=== PATIENT | male | born 1965 | race Caucasian/White ===

== ENCOUNTER 2018-09-05 14:11 | Emergency (ER) | payer BC ==
[~2018-09-05] VITALS: Ht 172.7 cm; Wt 76.2 kg
[~2018-09-05 14:11] MED LIST: AMLO10TA6 PO; ASPI-482 PO; ATOR10TA60 PO; CEFP200T PO; FENO200C PO; FLUC200T PO; GLIP10TA13 PO; IBUP-1060 PO; LISI1TAB5 PO; METF100010 PO; PANT40TA5 PO; TRAM-48 PO
[2018-09-05 14:12] VITALS: BP 161/87
--- NOTE | 2018-09-05 14:43 | PHYS DOC ---
Past Medical History Past Medical History: Diabetes-Type II, High Cholesterol, Hypertension, Other Additional Past Medical Histor: HEARING IMPAIRED Past Surgical History: Cholecystectomy, Tonsillectomy, Other Additional Past Surgical Histo: cochlear implant L ear Alcohol Use: None Drug Use: None Adult General Chief Complaint Chief Complaint: SHOUDLER HPI HPI Patient is a 53 year old male with history of diabetes type 2, hypertension, high cholesterol, who presents today complaining of 8 out of 10 right shoulder pain as well as posterior neck pain that began 4 days ago after he fell. Patient states he was working on a dock approximately 3 feet off the ground when he accidentally turned and fell. Patient denies any loss of consciousness. Denies being on any anticoagulants. Patient is deaf and unable to communicate verbally. Most of the information was provided by mother who is interpreting for sign language. Review of Systems Review of Systems Constitutional: Denies fever or chills [] Eyes: Denies change in visual acuity, redness, or eye pain [] HENT: Denies nasal congestion or sore throat [] Respiratory: Denies cough or shortness of breath [] Cardiovascular: No additional information not addressed in HPI [] GI: Denies abdominal pain, nausea, vomiting, bloody stools or diarrhea [] : Denies dysuria or hematuria [] Musculoskeletal: Reports right shoulder pain and posterior neck pain Integument: Denies rash or skin lesions [] Neurologic: Denies headache, focal weakness or sensory changes [] All other systems were reviewed and found to be within normal limits, except as documented in this note. Current Medications Current Medications Current Medications Medications (Trade) Dose Ordered Sig/[facility] Start Time Stop Time Status Last Admin Dose Admin Acetaminophen (Tylenol) 1,000 mg 1X ONCE 09/05/18 15:00 09/05/18 15:01 DC 09/05/18 14:52 1,000 MG Ibuprofen (Motrin) 600 mg 1X ONCE 09/05/18 15:00 09/05/18 15:01 DC 09/05/18 14:51 600 MG Allergies Allergies Allergies Coded Allergies Type Severity Reaction Last Updated Verified hydrocodone Adverse Reaction Intermediate confusion 12/10/16 Yes Physical Exam Physical Exam Constitutional: Well developed, well nourished, no acute distress, non-toxic appearance. [] HENT: Normocephalic, atraumatic, bilateral external ears normal, oropharynx moist, no oral exudates, nose normal. [] Eyes: PERRLA, EOMI, conjunctiva normal, no discharge. [] Neck: Normal range of motion, diffuse paraspinal muscle tenderness to posterior cervical spine including slight midline mid cervical spine tenderness tenderness , supple, no stridor. [] Cardiovascular:Heart rate regular rhythm, no murmur [] Lungs & Thorax: Bilateral breath sounds clear to auscultation [] Abdomen: Bowel sounds normal, soft, no tenderness, no masses, no pulsatile masses. [] Skin: Warm, dry, no erythema, no rash. [] Back: No tenderness, no CVA tenderness. [] Extremities: Right shoulder with no obvious deformity. Tenderness on palpation of the right clavicle. Full range of motion to the right shoulder, adequate abduction and adduction of the right shoulder. Adequate radial, medial, ulnar sensation to the right upper extremity. +2 right radial pulse. Cap refill less than 2 seconds the right fingers. Neurologic: Alert and oriented X 3, normal motor function, normal sensory function, no focal deficits noted. [] Psychologic: Affect normal, judgement normal, mood normal. [] Current Patient Data Vital Signs Vital Signs Date Time Temp Pulse Resp B/P (MAP) Pulse Ox O2 Delivery O2 Flow Rate FiO2 09/05/18 14:12 98.5 96 18 161/87 (111) 96 Room Air 98.5 EKG EKG [] Radiology/Procedures Radiology/Procedures []PROCEDURE: SHOULDER 2+V RIGHT EXAM: 3 views right shoulder DATE: 09/05/2018 2:26 PM INDICATION: PAIN RIGHT SHOULDER AFTER FALL 4 DAYS AGO COMPARISON: No Prior FINDINGS: No evidence of acute fracture or dislocation. Mild AC joint degenerative change. Inferior glenohumeral joint osteophytes are seen. Mild lateral downsloping of the distal acromion. Humeral head is not high riding. IMPRESSION: 1. AC joint and glenohumeral joint degenerative change. 2. No evidence of acute fracture or dislocation. Electronically signed by: Toan Nicholas MD (09/05/2018 2:39 PM) [facility] DICTATED and SIGNED BY: TOAN NICHOLAS MD DATE: 09/05/18 1438 PROCEDURE: CT CERVICAL SPINE WO CONTRAST EXAM: Cervical spine CT without contrast. HISTORY: Fall. TECHNIQUE: Computed tomographic images of the cervical spine were obtained without contrast. Multiplanar reformatting was performed. *One or more of the following individualized dose reduction techniques were utilized for this examination: 1. Automated exposure control. 2. Adjustment of the mA and/or kV according to patient size. 3. Use of iterative reconstruction technique. COMPARISON: None. FINDINGS: There is no significant listhesis. There is no acute or subacute fracture. There is degenerative endplate remodeling with bulky osteophytosis anteriorly at the majority of the cervical levels. There is ossification of the posterior longitudinal ligament at multiple levels. No suspicious osseous lesion is seen. The lung apices are unremarkable. At C2-C3, there is a posterior central disc osteophyte complex superimposed on a disc bulge. There is mild central canal stenosis. At C3-C4, there is a posterior central disc protrusion superimposed on a disc bulge and endplate remodeling. There is mild uncovertebral arthropathy. There is mild right foraminal and central canal stenosis. At C4-C5, there is a disc bulge and endplate remodeling. There is left greater than right uncovertebral therapy. There is mild left foraminal and central canal stenosis. At C5-C6, there is a disc bulge and left paracentral disc osteophyte complex superimposed on endplate remodeling. There is no stenosis. At C6-C7, there is a disc bulge and endplate remodeling. There is no stenosis. IMPRESSION: 1. Multilevel degenerative change about the cervical spine, described in detail above. 2. No acute osseous finding. Electronically signed by: Stephanie Mendoza MD (09/05/2018 3:18 PM) [facility] DICTATED and SIGNED BY: STEPHANIE MENDOZA MD DATE: 09/05/18 1516 Course & Med Decision Making Course & Med Decision Making Pertinent Labs and Imaging studies reviewed. (See chart for details) This is a 53-year-old male patient presented to the ED today with right shoulder pain as well as posterior neck pain status post falling 4 [address]erv[address] spine [address], right shoulder x-rays interpreted by radiologist were negative for any acute findings. Patient was discharged with diclofenac and cyclobenzaprine. Follow-up with PCP in 1-2 weeks. Ice elevation encouraged. Dragon Disclaimer Dragon Disclaimer This electronic medical record was generated, in whole or in part, using a voice recognition dictation system. Departure Departure Impression: Primary Impression: Fall from height of less than 3 feet Additional Impressions: Right shoulder pain Acute cervical sprain DJD (degenerative joint disease), cervical Degenerative joint disease, shoulder, right Disposition: 01 HOME, SELF-CARE Condition: STABLE Referrals: GARTH RIZVI MD (PCP) Follow-up next week Patient Instructions: Cervical Sprain, Fall Prevention and Home Safety, Shoulder Pain, [id number] Additional Instructions: You were evaluated in the emergency room for neck pain and right shoulder pain after falling. Your neck CT as well as right shoulder x-rays were negative for any acute findings. You were noted to have arthritis in your neck and right shoulder. Ice elevate the affected areas. Take the prescribed medications as needed for pain. Follow-up with your own doctor in 1-2 weeks. Scripts Cyclobenzaprine Hcl (CYCLOBENZAPRINE HCL) 10 Mg Tablet 1 TAB PO TID, #30 TAB Prov: DOMINGA MITCHELL APRN 09/05/18 Diclofenac Potassium (DICLOFENAC POTASSIUM) 50 Mg Tablet 1 TAB PO BID, #20 TAB 0 Refills Prov: DOMINGA MITCHELL APRN 09/05/18 Problem Qualifiers Additional Impressions: Right shoulder pain Chronicity: acute Qualified Codes: M25.511 - Pain in right shoulder Acute cervical sprain Encounter type: initial encounter Qualified Codes: S13.9XXA - Sprain of joints and ligaments of unspecified parts of neck, initial encounter DJD (degenerative joint disease), cervical Spinal osteoarthritis complication: unspecified spinal osteoarthritis Qualified Codes: M47.812 - Spondylosis without myelopathy or radiculopathy, cervical region Degenerative joint disease, shoulder, right Osteoarthritis type: other secondary Qualified Codes: 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
[2018-09-05] MEDS ORDERED: IBUPROFEN 600 MG TABLET. PO ONE (15:00)
[2018-09-05] MEDS ORDERED: ACETAMINOPHEN 500 MG TABLET PO ONE (15:00)
--- NOTE | 2018-09-05 15:23 | RAD ---
EXAM: Cervical spine CT without contrast. HISTORY: Fall. TECHNIQUE: Computed tomographic images of the cervical spine were obtained without contrast. Multiplanar reformatting was performed. *One or more of the following individualized dose reduction techniques were utilized for this examination: 1. Automated exposure control. 2. Adjustment of the mA and/or kV according to patient size. 3. Use of iterative reconstruction technique. COMPARISON: None. FINDINGS: There is no significant listhesis. There is no acute or subacute fracture. There is degenerative endplate remodeling with bulky osteophytosis anteriorly at the majority of the cervical levels. There is ossification of the posterior longitudinal ligament at multiple levels. No suspicious osseous lesion is seen. The lung apices are unremarkable. At C2-C3, there is a posterior central disc osteophyte complex superimposed on a disc bulge. There is mild central canal stenosis. At C3-C4, there is a posterior central disc protrusion superimposed on a disc bulge and endplate remodeling. There is mild uncovertebral arthropathy. There is mild right foraminal and central canal stenosis. At C4-C5, there is a disc bulge and endplate remodeling. There is left greater than right uncovertebral therapy. There is mild left foraminal and central canal stenosis. At C5-C6, there is a disc bulge and left paracentral disc osteophyte complex superimposed on endplate remodeling. There is no stenosis. At C6-C7, there is a disc bulge and endplate remodeling. There is no stenosis. IMPRESSION: 1. Multilevel degenerative change about the cervical spine, described in detail above. 2. No acute osseous finding. Electronically signed by: Stephanie Dutton MD (09/05/2018 3:18 PM) [place] [id number]
[2018-09-05] MEDS ORDERED: DICL50TA2 PO (15:52)
[2018-09-05] MEDS ORDERED: CYCL10TA2 PO (15:52)
== END 2018-09-05 16:01 | disposition home or self-care (01) ==
LOC: ER 14:11
DX: S13.8XXA Sprain of joints and ligaments of other parts of neck, initial encounter (principal); M19.011 Primary osteoarthritis, right shoulder; M47.812 Spondylosis without myelopathy or radiculopathy, cervical region; E11.9 Type 2 diabetes mellitus without complications; E78.00 Pure hypercholesterolemia, unspecified; I10 Essential (primary) hypertension; Z90.49 Acquired absence of other specified parts of digestive tract; Z90.89 Acquired absence of other organs; Z88.5 Allergy status to narcotic agent; W17.89XA Other fall from one level to another, initial encounter; Z91.81 History of falling; Y93.89 Activity, other specified; Y92.89 Other specified places as the place of occurrence of the external cause; Y99.0 Civilian activity done for income or pay
CPT/HCPCS: 72125; 73030; 99284-25

== ENCOUNTER 2019-07-24 09:31 | Emergency (ER) | payer BC ==
[~2019-07-24] VITALS: Ht 172.7 cm; Wt 74.4 kg
[~2019-07-24 09:31] MED LIST changes: -AMLO10TA6 PO; +AMLO10TA8 PO; +CYCL10TA2 PO; +DICL50TA2 PO; +LISI1TAB19 PO; -LISI1TAB5 PO; -PANT40TA5 PO; +PANT40TA77 PO
[2019-07-24] MEDS ORDERED: IV NORMAL SALINE 1000ML BAG 1,000 ML IV SCH (09:53)
[2019-07-24] MEDS ORDERED: ONDANSETRON PF 4 MG/2 ML VIAL. IV ONE (10:00)
[2019-07-24] MEDS ORDERED: fentaNYL PF VIAL 100 MCG/2 ML VIAL IV ONE (10:00)
--- NOTE | 2019-07-24 10:02 | PHYS DOC ---
Past Medical History Past Medical History: Diabetes-Type II, High Cholesterol, Hypertension, Other Additional Past Medical Histor: HEARING IMPAIRED Past Surgical History: Cholecystectomy, Tonsillectomy, Other Additional Past Surgical Histo: cochlear implant L ear Alcohol Use: None Drug Use: None Adult General Chief Complaint Chief Complaint: ABDOMINAL PAIN HPI HPI Patient is a 54 year old male patient with history of hypertension, dyslipidemia, diabetes mellitus and impaired hearing who presents with abdominal pain. Patient's mother helping with using sign language for taking history. Patient returned home from work yesterday with temperature of 100.8 and upper abdominal cramping pain and rated his pain over 10. Patient had more than 10 episodes of nonbloody diarrhea and 3 episodes of vomiting with urinary frequency and decrease of appetite. Patient complaining of left ankle and knee and leg pain since yesterday and rated his pain 10 over 10. Review of Systems Review of Systems Constitutional: Reports fever Eyes: Denies change in visual acuity, redness, or eye pain [] HENT: Denies nasal congestion or sore throat [] Respiratory: Denies cough or shortness of breath [] Cardiovascular: No additional information not addressed in HPI [] GI: Reports abdominal pain, nausea, vomiting, diarrhea [] : Denies dysuria or hematuria [] Musculoskeletal: Denies back pain, reports joint pain [] Integument: Denies rash or skin lesions [] Neurologic: Denies headache, focal weakness or sensory changes [] Endocrine: Denies polyuria or polydipsia [] All other systems were reviewed and found to be within normal limits, except as documented in this note. Current Medications Current Medications Current Medications Medications (Trade) Dose Ordered Sig/[facility] Start Time Stop Time Status Last Admin Dose Admin Diphenoxylate HCl/ Atropine (Lomotil) 2 tab 1X ONCE 07/24/19 12:15 07/24/19 12:16 Fentanyl Citrate (Fentanyl 2ml Vial) 50 mcg 1X ONCE 07/24/19 10:00 07/24/19 10:01 DC 07/24/19 10:08 50 MCG Ketorolac Tromethamine (Toradol 30mg Vial) 30 mg 1X ONCE 07/24/19 11:00 07/24/19 11:01 DC 07/24/19 10:55 30 MG Ondansetron HCl (Zofran) 4 mg 1X ONCE 07/24/19 10:00 07/24/19 10:01 DC 07/24/19 10:07 4 MG Potassium Chloride (Klor-Con) 40 meq 1X ONCE 07/24/19 12:15 07/24/19 12:16 Sodium Chloride 1,000 ml @ 1,000 mls/hr Q1H 07/24/19 09:53 07/24/19 10:52 DC 07/24/19 10:06 1,000 MLS/HR Allergies Allergies Allergies Coded Allergies Type Severity Reaction Last Updated Verified hydrocodone Adverse Reaction Intermediate confusion 12/10/16 Yes Physical Exam Physical Exam Constitutional: Well developed, well nourished, mild distress, non-toxic appearance , impaired hearing and speech. HENT: Normocephalic, atraumatic, dry oral mucosa. Eyes: PERRLA, EOMI, conjunctiva normal, no discharge. [] Neck: Normal range of motion, no tenderness, supple, no stridor. [] Cardiovascular:Heart rate regular rhythm, no murmur [] Lungs & Thorax: Bilateral breath sounds clear to auscultation [] Abdomen: Bowel sounds normal, soft, no tenderness, no masses, no pulsatile masses. [] Skin: Warm, dry, no erythema, no rash. [] Back: No tenderness, no CVA tenderness. [] Extremities: No tenderness, no cyanosis, no clubbing, ROM intact, no edema. Left lower extremity without edema or erythema or tenderness or sign of injury.[] Neurologic: Alert and oriented X 3, no focal deficits noted. [] Psychologic: Affect anxious. Current Patient Data Vital Signs Vital Signs Date Time Temp Pulse Resp B/P (MAP) Pulse Ox O2 Delivery O2 Flow Rate FiO2 07/24/19 09:40 98.9 98 20 132/92 (105) 94 Room Air 98.9 Lab Values Laboratory Tests Test 07/24/19 09:55 07/24/19 10:30 White Blood Count 8.1 x10^3/uL (4.0-11.0) Red Blood Count 5.73 x10^6/uL (4.30-5.70) H Hemoglobin 16.4 g/dL (13.0-17.5) Hematocrit 47.7 % (39.0-53.0) Mean Corpuscular Volume 83 fL (79-100) Mean Corpuscular Hemoglobin 29 pg (25-35) Mean Corpuscular Hemoglobin Concent 34 g/dL (31-37) Red Cell Distribution Width 14.0 % (11.5-14.5) Platelet Count 209 x10^3/uL (140-400) Neutrophils (%) (Auto) 71 % (31-73) Lymphocytes (%) (Auto) 17 % (24-48) L Monocytes (%) (Auto) 9 % (0-9) Eosinophils (%) (Auto) 2 % (0-3) Basophils (%) (Auto) 1 % (0-3) Neutrophils # (Auto) 5.8 x10^3/uL (1.8-7.7) Lymphocytes # (Auto) 1.4 x10^3/uL (1.0-4.8) Monocytes # (Auto) 0.7 x10^3/uL (0.0-1.1) Eosinophils # (Auto) 0.2 x10^3/uL (0.0-0.7) Basophils # (Auto) 0.1 x10^3/uL (0.0-0.2) Sodium Level 135 mmol/L (136-145) L Potassium Level 3.2 mmol/L (3.5-5.1) L Chloride Level 97 mmol/L (98-107) L Carbon Dioxide Level 29 mmol/L (21-32) Anion Gap 9 (6-14) Blood Urea Nitrogen 12 mg/dL (8-26) Creatinine 0.8 mg/dL (0.7-1.3) Estimated GFR (Cockcroft-Gault) 100.4 BUN/Creatinine Ratio 15 (6-20) Glucose Level 266 mg/dL (70-99) H Lactic Acid Level 1.3 mmol/L (0.4-2.0) Calcium Level 9.0 mg/dL (8.5-10.1) Total Bilirubin 1.6 mg/dL (0.2-1.0) H Aspartate Amino Transferase (AST) 19 U/L (15-37) Alanine Aminotransferase (ALT) 34 U/L (16-63) Alkaline Phosphatase 121 U/L (46-116) H Total Protein 8.3 g/dL (6.4-8.2) H Albumin 3.6 g/dL (3.4-5.0) Albumin/Globulin Ratio 0.8 (1.0-1.7) L Lipase 95 U/L (73-393) Urine Collection Type Unknown Urine Color Madelyn Urine Clarity Clear Urine pH 6.0 Urine Specific [place] >=1.030 Urine Protein 100 mg/dL (NEG-TRACE) Urine Glucose (UA) 250 mg/dL (NEG) Urine Ketones (Stick) Trace mg/dL (NEG) Urine Blood Negative (NEG) Urine Nitrite Negative (NEG) Urine Bilirubin Negative (NEG) Urine Urobilinogen Dipstick 1.0 mg/dL (0.2 mg/dL) Urine Leukocyte Esterase Negative (NEG) Urine RBC 0 /HPF (0-2) Urine WBC 1-4 /HPF (0-4) Urine Squamous Epithelial Cells Few /LPF Urine Bacteria Few /HPF (0-FEW) Urine Hyaline Casts Few /HPF Urine Granular Casts Occasional /HPF Urine Mucus Marked /LPF Laboratory Tests 07/24/19 09:55 Laboratory Tests 07/24/19 09:55 EKG EKG [] Radiology/Procedures Radiology/Procedures [][facility] [address] [place] [address] IMAGING REPORT Signed PATIENT: JULIÁN HEATON ACCOUNT: [id number] : 1965 LOCATION: ER AGE: 54 SEX: M EXAM STATUS: REG ER ORD. PHYSICIAN: FLORENCIO CENTENO MD REASON: abdominal pain, nausea and vomiting PROCEDURE: CT ABDOMEN PELVIS WO CONTRAST Examination: CT of the abdomen pelvis without contrast HISTORY: History of abdominal pain, nausea, vomiting COMPARISON: 12/08/2016 TECHNIQUE: Axial CT images of the abdomen is performed without contrast. Coronal and sagittal reformats are performed Exposure: One or more of the following individualized dose reduction techniques were utilized for this examination: 1. Automated exposure control 2. Adjustment of the mA and/or kV according to patient size 3. Use of iterative reconstruction technique FINDINGS: Mild bibasilar lung atelectasis. Calcified mediastinal and hilar lymph nodes. Calcified granuloma identified in the left lung base. No evidence of free air identified in the abdomen. There is diffuse decreased attenuation noted throughout the liver likely hepatic steatosis. Cholecystectomy changes identified. The spleen, adrenals grossly appears unremarkable. The evaluation of the solid organs is limited due to lack of IV contrast. The evaluation of bowel is limited due to lack of oral contrast. The stomach is mildly distended. The visualized pancreas grossly appears unremarkable. The small bowel is nondilated. Appendix is normal. Feces and gas noted in the colon. Urinary bladder is mildly distended. No evidence of intrarenal collecting system calculi or hydronephrosis. Minimal stranding identified about the bilateral kidneys. Mild aortic atherosclerosis. Moderate degenerative changes thoracolumbar spine. IMPRESSION: 1. Mild fat stranding identified about the bilateral kidneys, nonspecific could be due to medical renal disease or urinary tract infection. Correlate with urine analysis. 2. Hepatic steatosis. Electronically signed by: Sim Carrasco MD (07/24/2019 10:46 AM) [facility] DICTATED and SIGNED BY: SIM CARRASCO MD DATE: 07/24/19 1044 [facility] [address] [place] [address] IMAGING REPORT Signed PATIENT: JULIÁN HEATON ACCOUNT: [id number] : 1965 LOCATION: ER AGE: 54 SEX: M EXAM STATUS: REG ER ORD. PHYSICIAN: FLORENCIO CENTENO MD REASON: leg pain PROCEDURE: VENOUS LOWER EXTREMITY LEFT Examination: Lower Extremity Venous Doppler Ultrasound History: Left leg pain Comparison: None Procedure: Sanchez scale, color flow 2D and spectal waveform analysis images are obtained with and without compression in the area of the common femoral vein, superficial femoral vein - femoral vein junction, main femoral vein (superficial femoral vein) and popliteal vein. Veins of the proximal calf are also imaged. Findings: There is normal duplex flow, color flow and compressibility of all visualized vein segments. No evidence of deep venous thrombus is present. Impression: No evidence of DVT in the left lower extremity venous system. Electronically signed by: Sim Carrasco MD (07/24/2019 11:37 AM) [facility] DICTATED and SIGNED BY: SIM CARRASCO MD DATE: 07/24/19 4954 Course & Med Decision Making Course & Med Decision Making Pertinent Labs and Imaging studies reviewed. (See chart for details) Evolution of patient in ER showed 54-year-old male patient with complaining of nausea and vomiting and diarrhea for the last few days with left leg pain. Patient had unremarkable physical exam and labs except for mild hypokalemia and increasing of urine specific gravity. CT abdomen and pelvis was unremarkable and left lower extremity ultrasound did not show acute finding. Patient felt better with IV fluid and Zofran and fentanyl and Toradol. Plan discharge patient home with diagnosis of acute gastroenteritis and muscle pain. Dragon Disclaimer Dragon Disclaimer This electronic medical record was generated, in whole or in part, using a voice recognition dictation system. Departure Departure Impression: Primary Impression: Acute gastroenteritis Additional Impressions: Hypokalemia Abdominal pain Uncontrolled diabetes mellitus Elevated liver function tests Hepatic steatosis Lower extremity pain, left Impaired hearing Disposition: HOME, SELF-CARE (at 1207) Condition: IMPROVED Referrals: GARTH RIZVI MD (PCP) Patient Instructions: Hyperglycemia, Hypokalemia, Muscle Strain, Viral Gastroenteritis Additional Instructions: Drink plenty of liquids Follow-up with your primary care physician in 3-5 days Return to ER if not getting better Do not eat solid food for the next 24 hours Scripts Ondansetron Hcl (ZOFRAN) 4 Mg Tablet 1 TAB PO PRN Q6-8HRS for nausea, #12 TAB Prov: FLORENCIO CENTENO MD 07/24/19 Acetaminophen With Codeine (TYLENOL WITH CODEINE #3 TABLET) 1 Each Tablet 1 TAB PO PRN Q6HRS PRN for PAIN, #10 TAB Prov: FLORENCIO CENTENO MD 07/24/19 Problem Qualifiers Additional Impressions: Abdominal pain Abdominal location: unspecified location Qualified Codes: R10.9 - Unspecified abdominal pain Uncontrolled diabetes mellitus Diabetes mellitus type: other specified (including YOANA) Glycemic state: with hyperglycemia Qualified Codes: E13.65 - Other specified diabetes mellitus with hyperglycemia Impaired hearing Hearing loss type: unspecified Laterality: unspecified laterality Qualified Codes: H91.90 - Unspecified hearing loss, unspecified ear FLORENCIO CENTENO MD Jul 24, 2019 10:02
[2019-07-24 10:15] LABS: BASO # 0.1 x10^3/uL (0.0-0.2); BASO % 1 % (0-3); EOS # 0.2 x10^3/uL (0.0-0.7); EOS % 2 % (0-3); HEMATOCRIT 47.7 % (39.0-53.0); HEMOGLOBIN 16.4 g/dL (13.0-17.5); LYMPH # 1.4 x10^3/uL (1.0-4.8); LYMPH % 17 % (24-48); MEAN CORPUSCULAR HEMOGLOBIN 29 pg (25-35); MEAN CORPUSCULAR HGB CONC 34 g/dL (31-37); MEAN CORPUSCULAR VOLUME 83 fL (79-100); MONO # 0.7 x10^3/uL (0.0-1.1); MONO % 9 % (0-9); NEUT # 5.8 x10^3/uL (1.8-7.7); NEUT % 71 % (31-73); PLATELET COUNT 209 x10^3/uL (140-400); RED BLOOD COUNT 5.73 x10^6/uL (4.30-5.70); WHITE BLOOD COUNT 8.1 x10^3/uL (4.0-11.0)
[2019-07-24 10:20] LABS: CREATININE 0.8 mg/dL (0.7-1.3); GFR 100.4; POTASSIUM 3.2 mmol/L (3.5-5.1)
[2019-07-24 10:26] LABS: ALBUMIN 3.6 g/dL (3.4-5.0); ALBUMIN/GLOBULIN RATIO 0.8 (1.0-1.7); TOTAL BILIRUBIN 1.6 mg/dL (0.2-1.0); TOTAL PROTEIN 8.3 g/dL (6.4-8.2)
[2019-07-24 10:47] LABS: BILIRUBIN,URINE NEGATIVE (NEG); CLARITY,URINE CLEAR; COLOR,URINE AMBER; NITRITE,URINE NEGATIVE (NEG); PROTEIN,URINE 100 mg/dL (NEG-TRACE)
--- NOTE | 2019-07-24 10:50 | RAD ---
Examination: CT of the abdomen pelvis without contrast HISTORY: History of abdominal pain, nausea, vomiting COMPARISON: 12/08/2016 TECHNIQUE: Axial CT images of the abdomen is performed without contrast. Coronal and sagittal reformats are performed Exposure: One or more of the following individualized dose reduction techniques were utilized for this examination: 1. Automated exposure control 2. Adjustment of the mA and/or kV according to patient size 3. Use of iterative reconstruction technique FINDINGS: Mild bibasilar lung atelectasis. Calcified mediastinal and hilar lymph nodes. Calcified granuloma identified in the left lung base. No evidence of free air identified in the abdomen. There is diffuse decreased attenuation noted throughout the liver likely hepatic steatosis. Cholecystectomy changes identified. The spleen, adrenals grossly appears unremarkable. The evaluation of the solid organs is limited due to lack of IV contrast. The evaluation of bowel is limited due to lack of oral contrast. The stomach is mildly distended. The visualized pancreas grossly appears unremarkable. The small bowel is nondilated. Appendix is normal. Feces and gas noted in the colon. Urinary bladder is mildly distended. No evidence of intrarenal collecting system calculi or hydronephrosis. Minimal stranding identified about the bilateral kidneys. Mild aortic atherosclerosis. Moderate degenerative changes thoracolumbar spine. IMPRESSION: 1. Mild fat stranding identified about the bilateral kidneys, nonspecific could be due to medical renal disease or urinary tract infection. Correlate with urine analysis. 2. Hepatic steatosis. Electronically signed by: Sim Carrasco MD (07/24/2019 10:46 AM) [facility]
[2019-07-24 11:00] LABS: BACTERIA,URINE FEW /HPF (0-FEW); GRANULAR CASTS,URINE OCCASIONAL /HPF; HYALINE CASTS, URINE FEW /HPF; RBC,URINE 0 /HPF (0-2); SQUAMOUS EPITHELIAL CELL,UR FEW /LPF
[2019-07-24] MEDS ORDERED: KETOROLAC 30 MG/ML VIAL. IVP ONE (11:00)
--- NOTE | 2019-07-24 11:40 | RAD ---
Examination: Lower Extremity Venous Doppler Ultrasound History: Left leg pain Comparison: None Procedure: Sanchez scale, color flow 2D and spectal waveform analysis images are obtained with and without compression in the area of the common femoral vein, superficial femoral vein - femoral vein junction, main femoral vein (superficial femoral vein) and popliteal vein. Veins of the proximal calf are also imaged. Findings: There is normal duplex flow, color flow and compressibility of all visualized vein segments. No evidence of deep venous thrombus is present. Impression: No evidence of DVT in the left lower extremity venous system. Electronically signed by: Sim Carrasco MD (07/24/2019 11:37 AM) [facility]
[2019-07-24 11:51] VITALS: BP 108/62
[2019-07-24] MEDS ORDERED: ACET-704 PO (12:12)
[2019-07-24] MEDS ORDERED: ONDA4TAB7 PO (12:12)
[2019-07-24] MEDS ORDERED: POTASSIUM CHLORIDE 20 MEQ TABLET.ER. PO ONE (12:15)
[2019-07-24] MEDS ORDERED: DIPHENOXYLATE/ATROPINE TABLET. PO ONE (12:15)
== END 2019-07-24 13:26 | disposition home or self-care (01) ==
LOC: ER 09:31
DX: K52.9 Noninfective gastroenteritis and colitis, unspecified (principal); E87.6 Hypokalemia; R11.2 Nausea with vomiting, unspecified; R10.9 Unspecified abdominal pain; E11.649 Type 2 diabetes mellitus with hypoglycemia without coma; R94.5 Abnormal results of liver function studies; K76.0 Fatty (change of) liver, not elsewhere classified; M79.605 Pain in left leg; H91.90 Unspecified hearing loss, unspecified ear; E78.00 Pure hypercholesterolemia, unspecified; I10 Essential (primary) hypertension; Z90.89 Acquired absence of other organs; Z90.49 Acquired absence of other specified parts of digestive tract; Z98.890 Other specified postprocedural states; Z88.5 Allergy status to narcotic agent; Z79.899 Other long term (current) drug therapy
CPT/HCPCS: 36415; 74176; 80053; 81001; 83605; 83690; 85025; 87040; 93971; 96361; 96374; 96375; 99285; J1885; J2405; J3010; J7030

== ENCOUNTER 2019-09-04 14:43 | Emergency (ER) | payer BC ==
[~2019-09-04] VITALS: Ht 170.2 cm; Wt 73.6 kg
[~2019-09-04 14:43] MED LIST changes: +ACET-704 PO; +ONDA4TAB7 PO
[2019-09-04 15:36] VITALS: BP 159/85
[2019-09-04] MEDS ORDERED: IV NORMAL SALINE 1000ML BAG 1,000 ML IV ONE (15:45)
[2019-09-04 16:25] LABS: BASO # 0.1 x10^3/uL (0.0-0.2); BASO % 1 % (0-3); EOS # 0.2 x10^3/uL (0.0-0.7); EOS % 3 % (0-3); HEMOGLOBIN 14.9 g/dL (13.0-17.5); LYMPH # 1.8 x10^3/uL (1.0-4.8); LYMPH % 19 % (24-48); MEAN CORPUSCULAR HEMOGLOBIN 29 pg (25-35); MEAN CORPUSCULAR HGB CONC 35 g/dL (31-37); MEAN CORPUSCULAR VOLUME 83 fL (79-100); MONO # 0.4 x10^3/uL (0.0-1.1); MONO % 5 % (0-9); NEUT # 6.7 x10^3/uL (1.8-7.7); NEUT % 72 % (31-73); PLATELET COUNT 236 x10^3/uL (140-400); RED BLOOD COUNT 5.21 x10^6/uL (4.30-5.70); RED CELL DISTRIBUTION WIDTH 13.4 % (11.5-14.5); WHITE BLOOD COUNT 9.3 x10^3/uL (4.0-11.0)
--- NOTE | 2019-09-04 16:29 | RAD ---
Chest AP portable at 1544: Reason for examination: Chest pain. Comparison is made to previous study dated 05/29/2015. The heart size is normal. Mediastinum is unremarkable. There are calcifications at the left hilum and in the left lung base. Lung galindo show no acute infiltrates or pleural effusions. No acute bony abnormalities are seen. Impression: No acute cardiopulmonary disease. Electronically signed by: Hallie Merlos MD (09/04/2019 4:27 PM) [id number]
[2019-09-04 16:42] LABS: PROTHROMBIN TIME PATIENT 12.5 SEC (11.7-14.0)
[2019-09-04 16:42] LABS: BILIRUBIN,URINE NEGATIVE (NEG); CLARITY,URINE CLEAR; COLOR,URINE YELLOW; NITRITE,URINE NEGATIVE (NEG); PROTEIN,URINE 30 mg/dL (NEG-TRACE)
[2019-09-04 16:47] LABS: BARBITURATES NEG (NEG); BENZODIAZEPINES NEG (NEG); CANNABINOIDS NEG (NEG); COCAINE NEG (NEG); METHADONE NEG (NEG); OPIATES NEG (NEG); PHENCYCLIDINE NEG (NEG)
[2019-09-04 16:50] LABS: AMPHETAMINE/METHAMPHETAMINE NEG (NEG)
[2019-09-04 16:51] LABS: CALCIUM 9.2 mg/dL (8.5-10.1); CREATININE 0.7 mg/dL (0.7-1.3); GFR 117.1; POTASSIUM 3.6 mmol/L (3.5-5.1)
[2019-09-04 16:52] LABS: BACTERIA,URINE 0 /HPF (0-FEW); RBC,URINE 0 /HPF (0-2); WBC,URINE 0 /HPF (0-4)
[2019-09-04 16:55] LABS: ALBUMIN 3.7 g/dL (3.4-5.0); ALBUMIN/GLOBULIN RATIO 0.9 (1.0-1.7); TOTAL BILIRUBIN 0.6 mg/dL (0.2-1.0); TOTAL PROTEIN 7.9 g/dL (6.4-8.2)
--- NOTE | 2019-09-04 17:49 | PHYS DOC ---
Past Medical History Past Medical History: Diabetes-Type II, High Cholesterol, Hypertension, Other Additional Past Medical Histor: HEARING IMPAIRED Past Surgical History: Appendectomy, Cholecystectomy, Tonsillectomy, Other Additional Past Surgical Histo: cochlear implant L ear Alcohol Use: None Drug Use: None Adult General Chief Complaint Chief Complaint: BLOOD SUGAR PROBLEM HPI HPI Patient is a 54 year old male with history of diabetes type 2, hypertension, high last, hearing impaired uses sign language who presents to the ED today with the mother, mother reports they were at [employer] when patient complained of dizziness, ringing in his right ear, he was given ice cream they went home, they called EMS, blood glucose was taken which was 357, EMS advised him to come to the ED to be evaluated. Review of Systems Review of Systems Constitutional: Denies fever or chills [] Eyes: Denies change in visual acuity, redness, or eye pain [] HENT: Denies nasal congestion or sore throat [] Respiratory: Denies cough or shortness of breath [] Cardiovascular: No additional information not addressed in HPI [] GI: Denies abdominal pain, nausea, vomiting, bloody stools or diarrhea [] : Denies dysuria or hematuria [] Musculoskeletal: Denies back pain or joint pain [] Integument: Denies rash or skin lesions [] Neurologic: Reports dizziness. Denies headache, focal weakness or sensory changes [] Endocrine: Reports hyperglycemia All other systems were reviewed and found to be within normal limits, except as documented in this note. Current Medications Current Medications Current Medications Medications (Trade) Dose Ordered Sig/Sharyn Start Time Stop Time Status Last Admin Dose Admin Sodium Chloride 1,000 ml @ 1,000 mls/hr 1X ONCE 09/04/19 15:45 09/04/19 16:44 DC 09/04/19 16:08 1,000 MLS/HR Allergies Allergies Allergies Coded Allergies Type Severity Reaction Last Updated Verified hydrocodone Adverse Reaction Intermediate confusion 12/10/16 Yes Physical Exam Physical Exam Constitutional: Well developed, well nourished, no acute distress, non-toxic appearance. [] HENT: Normocephalic, atraumatic, bilateral external ears normal, oropharynx moist, no oral exudates, nose normal.[place] Eyes: PERRLA, EOMI, conjunctiva normal, no discharge. [] Neck: Normal range of motion, no tenderness, supple, no stridor. [] Cardiovascular:Heart rate regular rhythm, no murmur [] Lungs & Thorax: Bilateral breath sounds clear to auscultation [] Abdomen: Bowel sounds normal, soft, no tenderness, no masses, no pulsatile masses. [] Skin: Warm, dry, no erythema, no rash. [] Back: No tenderness, no CVA tenderness. [] Extremities: No tenderness, no cyanosis, no clubbing, ROM intact, no edema. [] Neurologic: Alert and oriented X 3, normal motor function, normal sensory function, no focal deficits noted. Cranial nerves II through XII intact Psychologic: Affect normal, judgement normal, mood normal. [] Current Patient Data Vital Signs Vital Signs Date Time Temp Pulse Resp B/P (MAP) Pulse Ox O2 Delivery O2 Flow Rate FiO2 09/04/19 15:36 97.4 88 18 159/85 (109) 97 97.4 Lab Values Laboratory Tests Test 09/04/19 15:38 09/04/19 16:00 09/04/19 16:20 09/04/19 17:45 Glucose (Fingerstick) 303 mg/dL (70-99) H 233 mg/dL (70-99) H White Blood Count 9.3 x10^3/uL (4.0-11.0) Red Blood Count 5.21 x10^6/uL (4.30-5.70) Hemoglobin 14.9 g/dL (13.0-17.5) Hematocrit 43.0 % (39.0-53.0) Mean Corpuscular Volume 83 fL (79-100) Mean Corpuscular Hemoglobin 29 pg (25-35) Mean Corpuscular Hemoglobin Concent 35 g/dL (31-37) Red Cell Distribution Width 13.4 % (11.5-14.5) Platelet Count 236 x10^3/uL (140-400) Neutrophils (%) (Auto) 72 % (31-73) Lymphocytes (%) (Auto) 19 % (24-48) L Monocytes (%) (Auto) 5 % (0-9) Eosinophils (%) (Auto) 3 % (0-3) Basophils (%) (Auto) 1 % (0-3) Neutrophils # (Auto) 6.7 x10^3/uL (1.8-7.7) Lymphocytes # (Auto) 1.8 x10^3/uL (1.0-4.8) Monocytes # (Auto) 0.4 x10^3/uL (0.0-1.1) Eosinophils # (Auto) 0.2 x10^3/uL (0.0-0.7) Basophils # (Auto) 0.1 x10^3/uL (0.0-0.2) Prothrombin Time 12.5 SEC (11.7-14.0) Prothrombin Time INR 1.0 (0.8-1.1) Sodium Level 136 mmol/L (136-145) Potassium Level 3.6 mmol/L (3.5-5.1) Chloride Level 99 mmol/L (98-107) Carbon Dioxide Level 29 mmol/L (21-32) Anion Gap 8 (6-14) Blood Urea Nitrogen 13 mg/dL (8-26) Creatinine 0.7 mg/dL (0.7-1.3) Estimated GFR (Cockcroft-Gault) 117.1 BUN/Creatinine Ratio 19 (6-20) Glucose Level 305 mg/dL (70-99) H Calcium Level 9.2 mg/dL (8.5-10.1) Magnesium Level 2.0 mg/dL (1.8-2.4) Total Bilirubin 0.6 mg/dL (0.2-1.0) Aspartate Amino Transferase (AST) 24 U/L (15-37) Alanine Aminotransferase (ALT) 40 U/L (16-63) Alkaline Phosphatase 129 U/L (46-116) H Creatine Kinase 130 U/L (39-308) Creatine Kinase MB (Mass) 1.1 ng/mL (0.0-3.6) Creatine Kinase MB Relative Index 0.8 % (0-4) Troponin I Quantitative < 0.017 ng/mL (0.000-0.055) XX-[place]x-K-Type Natriuretic Peptide 75 pg/mL (0-124) Total Protein 7.9 g/dL (6.4-8.2) Albumin 3.7 g/dL (3.4-5.0) Albumin/Globulin Ratio 0.9 (1.0-1.7) L Thyroid Stimulating Hormone (TSH) 0.623 uIU/mL (0.358-3.74) Urine Collection Type Unknown Urine Color Yellow Urine Clarity Clear Urine pH 6.0 Urine Specific [place] >=1.030 Urine Protein 30 mg/dL (NEG-TRACE) Urine Glucose (UA) >=1000 mg/dL (NEG) Urine Ketones (Stick) Negative mg/dL (NEG) Urine Blood Negative (NEG) Urine Nitrite Negative (NEG) Urine Bilirubin Negative (NEG) Urine Urobilinogen Dipstick 1.0 mg/dL (0.2 mg/dL) Urine Leukocyte Esterase Negative (NEG) Urine RBC 0 /HPF (0-2) Urine WBC 0 /HPF (0-4) Urine Bacteria 0 /HPF (0-FEW) Urine Opiates Screen Neg (NEG) Urine Methadone Screen Neg (NEG) Urine Barbiturates Neg (NEG) Urine Phencyclidine Screen Neg (NEG) Urine Amphetamine/Methamphetamine Neg (NEG) Urine Benzodiazepines Screen Neg (NEG) Urine Cocaine Screen Neg (NEG) Urine Cannabinoids Screen Neg (NEG) Urine Ethyl Alcohol Neg (NEG) Laboratory Tests 09/04/19 16:00 Laboratory Tests 09/04/19 16:00 EKG EKG [address] Louis sinus rhythm heart rate 82 no STEMI Radiology/Procedures Radiology/Procedures []PROCEDURE: PORTABLE CHEST 1V Chest AP portable at 1544: Reason for examination: Chest pain. Comparison is made to previous study dated 05/29/2015. The heart size is normal. Mediastinum is unremarkable. There are calcifications at the left hilum and in the left lung base. Lung galindo show no acute infiltrates or pleural effusions. No acute bony abnormalities are seen. Impression: No acute cardiopulmonary disease. Electronically signed by: Hallie Rowan MD (09/04/2019 4:27 PM) [id number] DICTATED and SIGNED BY: HALLIE ROWAN MD DATE: 09/04/19 1627 Course & Med Decision Making Course & Med Decision Making Pertinent Labs and Imaging studies reviewed. (See chart for details) This is a 54-year-old male patient with history of diabetes among other illnesses who presents to the ED today to be evaluated for dizziness and hyperglycemia. Also was complaining of ringing in the ears. Symptoms began while shopping at [employer]. He was given an ice cream cone by the mother. Blood glucose was 357 at home. EKG is negative, chest x-ray is negative, CBC no acute findings, troponin is normal, CMP with glucose of 305 anion gap is normal. Patient was given IV fluids. Glucose 213 prior to discharge. Discussed with mother as well as patient blood glucose management, what to eat incase patient feels hypoglycemic. Follow -up with primary care doctor next week Tino Disclaimer Tino Disclaimer This electronic medical record was generated, in whole or in part, using a voice recognition dictation system. Departure Departure Impression: Primary Impression: Hyperglycemia Additional Impression: Dizziness Disposition: HOME, SELF-CARE Condition: STABLE Referrals: GARTH RIZVI MD (PCP) follow up in one week Patient Instructions: Hyperglycemia Additional Instructions: You were evaluated in the emergency room, please ensure you taking your diabetes medicine as prescribed. Please follow-up with your doctor Friday. Problem Qualifiers DOMINGA MITCHELL APRN Sep 04, 2019 17:49
--- NOTE | 2019-09-05 17:42 | EKG ---
[facility] [address] [place] [address] Test Date: 2019-09-04 Test Time: 16:07:32 Pat Name: JULIÁN HEATON Department: Room: Gender: M [employer]: : 1965 Requested By: DOMINGA MITCHELL Order Number: [id number] Reading MD: Measurements Intervals [place] Rate: 82 P: 49 HI: 176 QRS: 28 QRSD: 90 T: 24 QT: 364 QTc: 428 Interpretive Statements SINUS RHYTHM NO SPECIFIC ECG ABNORMALITIES RI6.01 No previous ECG available for comparison
== END 2019-09-04 18:00 | disposition home or self-care (01) ==
LOC: ER 14:43
DX: E11.65 Type 2 diabetes mellitus with hyperglycemia (principal); R42 Dizziness and giddiness; E78.00 Pure hypercholesterolemia, unspecified; I10 Essential (primary) hypertension; Z90.89 Acquired absence of other organs; Z90.49 Acquired absence of other specified parts of digestive tract; Z98.890 Other specified postprocedural states; Z88.5 Allergy status to narcotic agent
CPT/HCPCS: 36415; 71045; 80053; 80307; 81001; 82553; 82962; 83735; 83880; 84443; 84484; 85025; 85610; 93005; 96360; 99285; J7030

== ENCOUNTER 2019-10-02 11:45 | Inpatient (IN) | payer BC ==
[~2019-10-02] VITALS: Ht 172.7 cm; Wt 73.6 kg
[2019-10-02] MEDS ORDERED: IV NORMAL SALINE 1000ML BAG 1,000 ML IV ONE (12:45)
[2019-10-02] MEDS ORDERED: MECLIZINE HCL 12.5 MG TABLET. PO ONE (12:45)
[2019-10-02 13:07] LABS: BASO # 0.1 x10^3/uL (0.0-0.2); BASO % 1 % (0-3); EOS # 0.1 x10^3/uL (0.0-0.7); EOS % 1 % (0-3); HEMATOCRIT 42.6 % (39.0-53.0); HEMOGLOBIN 14.9 g/dL (13.0-17.5); LYMPH % 10 % (24-48); MEAN CORPUSCULAR HEMOGLOBIN 29 pg (25-35); MEAN CORPUSCULAR HGB CONC 35 g/dL (31-37); MEAN CORPUSCULAR VOLUME 83 fL (79-100); MONO # 0.4 x10^3/uL (0.0-1.1); MONO % 4 % (0-9); NEUT # 8.2 x10^3/uL (1.8-7.7); NEUT % 84 % (31-73); PLATELET COUNT 222 x10^3/uL (140-400); RED BLOOD COUNT 5.15 x10^6/uL (4.30-5.70); RED CELL DISTRIBUTION WIDTH 13.3 % (11.5-14.5); WHITE BLOOD COUNT 9.7 x10^3/uL (4.0-11.0)
--- NOTE | 2019-10-02 13:11 | RAD ---
AP chest x-ray HISTORY: Dizziness. COMPARISON: Chest x-ray September 04, 2019. FINDINGS: Mild cardiomegaly stable. Calcified granulomas of the left hilum and left lower lobe stable. Mild interstitial infiltrates at the lung bases new from prior x-rays could indicate mild interstitial edema, or atypical infection such as a viral pneumonitis or PCP pneumonia. No pulmonary opacity or consolidation. Bones are unremarkable. IMPRESSION: Lower lobe interstitial infiltrates have developed may indicate mild interstitial edema versus sequela of an atypical infection as described above. Mild cardiomegaly stable. Electronically signed by: Melvin Sykes MD (10/02/2019 1:08 PM) [id number]
[2019-10-02 13:22] LABS: CREATININE 0.8 mg/dL (0.7-1.3); GFR 100.4; POTASSIUM 3.9 mmol/L (3.5-5.1)
[2019-10-02 13:30] LABS: ALBUMIN 3.7 g/dL (3.4-5.0); ALBUMIN/GLOBULIN RATIO 0.9 (1.0-1.7); MAGNESIUM 1.9 mg/dL (1.8-2.4); TOTAL BILIRUBIN 0.7 mg/dL (0.2-1.0); TOTAL PROTEIN 7.7 g/dL (6.4-8.2)
[2019-10-02 14:21] LABS: BILIRUBIN,URINE NEGATIVE (NEG); CLARITY,URINE CLEAR; COLOR,URINE YELLOW; NITRITE,URINE NEGATIVE (NEG); PROTEIN,URINE 30 mg/dL (NEG-TRACE)
[2019-10-02 14:30] LABS: BACTERIA,URINE 0 /HPF (0-FEW); RBC,URINE 0 /HPF (0-2); WBC,URINE 0 /HPF (0-4)
[2019-10-02 14:31] LABS: BARBITURATES NEG (NEG); BENZODIAZEPINES NEG (NEG); CANNABINOIDS NEG (NEG); COCAINE NEG (NEG); METHADONE NEG (NEG); OPIATES NEG (NEG); PHENCYCLIDINE NEG (NEG)
[2019-10-02 14:44] LABS: AMPHETAMINE/METHAMPHETAMINE NEG (NEG)
[2019-10-02] MEDS ORDERED: cefTRIAXone IV Push 1 GM VIAL. IVP ONE (14:45)
[2019-10-02] MEDS ORDERED: AZITHRMYCN 500MG IVPB FOR OMNI 250 ML IV ONE (14:45)
[2019-10-02 15:00] VITALS: BP 136/85
[2019-10-02] MEDS ORDERED: ONDANSETRON PF 4 MG/2 ML VIAL. IVP ONE (15:15)
[2019-10-02] MEDS ORDERED: fentaNYL PF VIAL 100 MCG/2 ML VIAL IV PRN (15:30)
[2019-10-02] MEDS ORDERED: ONDANSETRON PF 4 MG/2 ML VIAL. IV PRN ×2 (15:30→22:00)
[2019-10-02] MEDS ORDERED: ACETAMINOPHEN 325 MG TABLET. PO PRN ×2 (15:30→22:00)
[2019-10-02] MEDS ORDERED: DEXTROSE 50% 25 GM / 50ML DISP.SYRIN. IV PRN (15:30)
--- NOTE | 2019-10-02 15:30 | PHYS DOC ---
Past Medical History Past Medical History: Diabetes-Type II, High Cholesterol, Hypertension, Other Additional Past Medical Histor: HEARING IMPAIRED Past Surgical History: Appendectomy, Cholecystectomy, Tonsillectomy, Other Additional Past Surgical Histo: cochlear implant L ear Smoking Status: Never Smoker Alcohol Use: None Drug Use: None Adult General Chief Complaint Chief Complaint: DIZZY/LIGHT HEADED HPI HPI Patient is a 54 year old male with history of diabetes type 2, hypertension, high cholesterol, very hard of hearing currently using sign language who presents to the ED today with mother and sister, mother reports no walking at the store patient became dizzy and was complaining of nausea. Patient denies any abdominal pain. Denies any chest pain or shortness of breath. Review of Systems Review of Systems Constitutional: Denies fever or chills [] Eyes: Denies change in visual acuity, redness, or eye pain [] HENT: Denies nasal congestion or sore throat [] Respiratory: Denies cough or shortness of breath [] Cardiovascular: No additional information not addressed in HPI [] GI: Reports nausea. Denies abdominal pain, vomiting, bloody stools or diarrhea [] : Denies dysuria or hematuria [] Musculoskeletal: Denies back pain or joint pain [] Integument: Denies rash or skin lesions [] Neurologic: Reports dizziness. Denies headache, focal weakness or sensory changes [] All other systems were reviewed and found to be within normal limits, except as documented in this note. Current Medications Current Medications Current Medications Medications (Trade) Dose Ordered Sig/Sharyn Start Time Stop Time Status Last Admin Dose Admin Azithromycin 250 ml @ 250 mls/hr 1X ONCE 10/02/19 14:45 10/02/19 15:44 DC 10/02/19 15:00 250 MLS/HR Ceftriaxone Sodium (Rocephin) 1 gm 1X ONCE 10/02/19 14:45 10/02/19 14:46 DC 10/02/19 15:10 1 GM Meclizine HCl (Antivert) 12.5 mg 1X ONCE 10/02/19 12:45 10/02/19 12:47 DC 10/02/19 13:26 12.5 MG Ondansetron HCl (Zofran) 4 mg 1X ONCE 10/02/19 15:15 10/02/19 15:16 DC 10/02/19 15:13 4 MG Sodium Chloride 1,000 ml @ 1,000 mls/hr 1X ONCE 10/02/19 12:45 10/02/19 13:44 DC 10/02/19 13:17 1,000 MLS/HR Allergies Allergies Allergies Coded Allergies Type Severity Reaction Last Updated Verified hydrocodone Adverse Reaction Intermediate confusion 12/10/16 Yes Physical Exam Physical Exam Constitutional: Well developed, well nourished, no acute distress, non-toxic appearance. [] HENT: Normocephalic, atraumatic, bilateral external ears normal, oropharynx moist, no oral exudates, nose normal. [place] using sign language. Family inte rpreting. Eyes: PERRLA, EOMI, conjunctiva normal, no discharge. [] Neck: Normal range of motion, no tenderness, supple, no stridor. [] Cardiovascular:Heart rate regular rhythm, no murmur [] Lungs & Thorax: Bilateral breath sounds clear to auscultation [] Abdomen: Bowel sounds normal, soft, no tenderness, no masses, no pulsatile masses. [] Skin: Warm, dry, no erythema, no rash. [] Back: No tenderness, no CVA tenderness. [] Extremities: No tenderness, no cyanosis, no clubbing, ROM intact, no edema. [] Neurologic: Alert and oriented X 3, normal motor function, normal sensory function, no focal deficits noted. Cranial nerves II through XII intact Psychologic: Affect normal, judgement normal, mood normal. [] Current Patient Data Vital Signs Vital Signs Date Time Temp Pulse Resp B/P (MAP) Pulse Ox O2 Delivery O2 Flow Rate FiO2 10/02/19 14:20 74 20 97 10/02/19 12:35 97.4 149/93 (111) Room Air 97.4 Lab Values Laboratory Tests Test 10/02/19 11:52 10/02/19 12:18 10/02/19 12:45 10/02/19 14:11 White Blood Count 9.7 x10^3/uL (4.0-11.0) Red Blood Count 5.15 x10^6/uL (4.30-5.70) Hemoglobin 14.9 g/dL (13.0-17.5) Hematocrit 42.6 % (39.0-53.0) Mean Corpuscular Volume 83 fL (79-100) Mean Corpuscular Hemoglobin 29 pg (25-35) Mean Corpuscular Hemoglobin Concent 35 g/dL (31-37) Red Cell Distribution Width 13.3 % (11.5-14.5) Platelet Count 222 x10^3/uL (140-400) Neutrophils (%) (Auto) 84 % (31-73) H Lymphocytes (%) (Auto) 10 % (24-48) L Monocytes (%) (Auto) 4 % (0-9) Eosinophils (%) (Auto) 1 % (0-3) Basophils (%) (Auto) 1 % (0-3) Neutrophils # (Auto) 8.2 x10^3/uL (1.8-7.7) H Lymphocytes # (Auto) 1.0 x10^3/uL (1.0-4.8) Monocytes # (Auto) 0.4 x10^3/uL (0.0-1.1) Eosinophils # (Auto) 0.1 x10^3/uL (0.0-0.7) Basophils # (Auto) 0.1 x10^3/uL (0.0-0.2) Creatine Kinase 123 U/L (39-308) Creatine Kinase MB (Mass) 0.8 ng/mL (0.0-3.6) Creatine Kinase MB Relative Index 0.7 % (0-4) Troponin I Quantitative < 0.017 ng/mL (0.000-0.055) KZ-Fib-I-Type Natriuretic Peptide 44 pg/mL (0-124) Thyroid Stimulating Hormone (TSH) 0.502 uIU/mL (0.358-3.74) Glucose (Fingerstick) 275 mg/dL (70-99) H Sodium Level 135 mmol/L (136-145) L Potassium Level 3.9 mmol/L (3.5-5.1) Chloride Level 100 mmol/L (98-107) Carbon Dioxide Level 28 mmol/L (21-32) Anion Gap 7 (6-14) Blood Urea Nitrogen 12 mg/dL (8-26) Creatinine 0.8 mg/dL (0.7-1.3) Estimated GFR (Cockcroft-Gault) 100.4 BUN/Creatinine Ratio 15 (6-20) Glucose Level 290 mg/dL (70-99) H Calcium Level 9.0 mg/dL (8.5-10.1) Magnesium Level 1.9 mg/dL (1.8-2.4) Total Bilirubin 0.7 mg/dL (0.2-1.0) Aspartate Amino Transferase (AST) 21 U/L (15-37) Alanine Aminotransferase (ALT) 37 U/L (16-63) Alkaline Phosphatase 125 U/L (46-116) H Total Protein 7.7 g/dL (6.4-8.2) Albumin 3.7 g/dL (3.4-5.0) Albumin/Globulin Ratio 0.9 (1.0-1.7) L Urine Collection Type Unknown Urine Color Yellow Urine Clarity Clear Urine pH 7.0 Urine Specific [place] 1.025 Urine Protein 30 mg/dL (NEG-TRACE) Urine Glucose (UA) >=1000 mg/dL (NEG) Urine Ketones (Stick) Negative mg/dL (NEG) Urine Blood Negative (NEG) Urine Nitrite Negative (NEG) Urine Bilirubin Negative (NEG) Urine Urobilinogen Dipstick 1.0 mg/dL (0.2 mg/dL) Urine Leukocyte Esterase Negative (NEG) Urine RBC 0 /HPF (0-2) Urine WBC 0 /HPF (0-4) Urine Bacteria 0 /HPF (0-FEW) Urine Opiates Screen Neg (NEG) Urine Methadone Screen Neg (NEG) Urine Barbiturates Neg (NEG) Urine Phencyclidine Screen Neg (NEG) Urine Amphetamine/Methamphetamine Neg (NEG) Urine Benzodiazepines Screen Neg (NEG) Urine Cocaine Screen Neg (NEG) Urine Cannabinoids Screen Neg (NEG) Urine Ethyl Alcohol Neg (NEG) Laboratory Tests 10/02/19 11:52 Laboratory Tests 10/02/19 12:45 EKG EKG [address] Mckeon sinus rhythm HR 75 no STEMI[] Radiology/Procedures Radiology/Procedures []PROCEDURE: KUB One view abdomen pelvis 3:33 PM HISTORY: Vomiting Supine AP view abdomen pelvis There is air and stool scattered throughout portions the colon. There is thumbprinting of the left colon. There is a paucity small bowel gas. There is no obvious free air on this supine view. IMPRESSION: Nonobstructive bowel gas pattern. The thumbprinting on the left is consistent with bowel wall edema and could be inflammatory or infectious colitis. Electronically signed by: Jelly Aldana III, MD (10/02/2019 4:00 PM) [id number] DICTATED and SIGNED BY: JELLY ALDANA III, MD DATE: 10/02/19 1600 PROCEDURE: PORTABLE CHEST 1V AP chest x-ray HISTORY: Dizziness. COMPARISON: Chest x-ray September 04, 2019. FINDINGS: Mild cardiomegaly stable. Calcified granulomas of the left hilum and left lower lobe stable. Mild interstitial infiltrates at the lung bases new from prior x-rays could indicate mild interstitial edema, or atypical infection such as a viral pneumonitis or PCP pneumonia. No pulmonary opacity or consolidation. Bones are unremarkable. IMPRESSION: Lower lobe interstitial infiltrates have developed may indicate mild interstitial edema versus sequela of an atypical infection as described above. Mild cardiomegaly stable. Electronically signed by: Jonelle Sykes MD (10/02/2019 1:08 PM) [id number] DICTATED and SIGNED BY: JONELLE SYKES MD DATE: 10/02/19 1308 Course & Med Decision Making Course & Med Decision Making Pertinent Labs and Imaging studies reviewed. (See chart for details) This is a 54-year-old male patient who presents to the ED today complaining of dizziness and nausea that began while at the store. CBC with normal WBC, CMP with glucose of 290, anion gap is normal. Chest x-ray noted for new bilateral basilar infiltrates, patient was started on Rocephin and azithromycin. Given IV fluids. Patient started vomiting in the ED. He was given Zofran. Spoke to Dr. Chandra who accepted patient for admission Dragon Disclaimer Dragon Disclaimer This electronic medical record was generated, in whole or in part, using a voice recognition dictation system. Departure Departure Impression: Primary Impression: Dizziness Additional Impression: Bilateral pulmonary infiltrates on CXR Disposition: ADMITTED INPATIENT Condition: STABLE Referrals: GARTH RIZVI MD (PCP) Problem Qualifiers DOMINGA MITCHELL APRN Oct 02, 2019 15:30
--- NOTE | 2019-10-02 16:02 | RAD ---
One view abdomen pelvis 3:33 PM HISTORY: Vomiting Supine AP view abdomen pelvis There is air and stool scattered throughout portions the colon. There is thumbprinting of the left colon. There is a paucity small bowel gas. There is no obvious free air on this supine view. IMPRESSION: Nonobstructive bowel gas pattern. The thumbprinting on the left is consistent with bowel wall edema and could be inflammatory or infectious colitis. Electronically signed by: Luis Andrade III, MD (10/02/2019 4:00 PM) [id number]
[2019-10-02] MEDS: INSULIN LISPRO 300 UNITS/3 ML VIAL. SQ SCH (17:31)
[2019-10-02 19:00] VITALS: BP 142/83
--- NOTE | 2019-10-02 19:17 | PDOC1 ---
History and Physical Date of Admission Date of Admission DATE: 10/02/19 TIME: 19:16 Identification/Chief Complaint Chief Complaint seen in er with pneumonia 54 year old male with history of diabetes type 2, hypertension, high cholesterol, very hard of hearing currently using sign language presented to the ED today with mother and sister, mother reports was walking at the store patient became dizzy and was complaining of nausea. , vomiting Patient denies any abdominal pain. Denies any chest pain or shortness of breath. Past Medical History Past Medical History Past Medical History Past Medical History Past Medical History: Diabetes-Type II, High Cholesterol, Hypertension, Other Additional Past Medical Histor: HEARING IMPAIRED Past Surgical History: Appendectomy, Cholecystectomy, Tonsillectomy, Other Additional Past Surgical Histo: cochlear implant L ear Smoking Status: Never Smoker Alcohol Use: None Drug Use: None fhx htn Past Surgical History Past Surgical History: Cholecystectomy, Tonsillectomy Family History Family History: Hypertension, Family History Unknown Social History Smoke: No ALCOHOL: none Drugs: None Current Problem List Problem List Problems Medical Problems: (1) Bilateral pulmonary infiltrates on CXR Status: Acute (2) Dizziness Status: Acute Current Medications Current Medications Current Medications Sodium Chloride 1,000 ml @ 1,000 mls/hr 1X ONCE IV Last administered on 10/02/19at 13:17; Start 10/02/19 at 12:45; Stop 10/02/19 at 13:44; Status DC Meclizine HCl (Antivert) 12.5 mg 1X ONCE PO Last administered on 10/02/19at 13:26; Start 10/02/19 at 12:45; Stop 10/02/19 at 12:47; Status DC Ceftriaxone Sodium (Rocephin) 1 gm 1X ONCE IVP Last administered on 10/02/19at 15:10; Start 10/02/19 at 14:45; Stop 10/02/19 at 14:46; Status DC Azithromycin 250 ml @ 250 mls/hr 1X ONCE IV Last administered on 10/02/19at 15:00; Start 10/02/19 at 14:45; Stop 10/02/19 at 15:44; Status DC Ondansetron HCl (Zofran) 4 mg 1X ONCE IVP Last administered on 10/02/19at 15:13; Start 10/02/19 at 15:15; Stop 10/02/19 at 15:16; Status DC Ondansetron HCl (Zofran) 4 mg PRN Q8HRS PRN IV NAUSEA/VOMITING; Start 10/02/19 at 15:30; Stop 10/03/19 at 15:29 Fentanyl Citrate (Fentanyl 2ml Vial) 50 mcg PRN Q1HR PRN IV PAIN; Start 10/02/19 at 15:30; Stop 10/03/19 at 15:29 Acetaminophen (Tylenol) 650 mg PRN Q4HRS PRN PO FEVER; Start 10/02/19 at 15:30; Stop 10/03/19 at 15:29 Insulin Human Lispro (HumaLOG) 0-5 UNITS TIDWMEALS SQ Last administered on 10/02/19at 17:31; Start 10/02/19 at 17:00 Dextrose (Dextrose 50%-Water Syringe) 12.5 gm PRN Q15MIN PRN IV SEE COMMENTS; Start 10/02/19 at 15:30 Active Scripts Active Zofran (Ondansetron Hcl) 4 Mg Tablet 1 Tab PO PRN Q6-8HRS Tylenol With Codeine #3 Tablet (Acetaminophen/Codeine Phosphate) 1 Each Tablet 1 Tab PO PRN Q6HRS PRN Cyclobenzaprine Hcl 10 Mg Tablet 1 Tab PO TID Diclofenac Potassium 50 Mg Tablet 1 Tab PO BID Ultram (Tramadol Hcl) 50 Mg Tablet 1 Tab PO Q6HRS PRN Reported Glipizide 10 Mg Tablet 1 Tab PO BID Metformin Hcl Er (Metformin Hcl) 1,000 Mg Tab.er.24 1,000 Mg PO DAILYWBKFT Lisinopril-Hctz 20-12.5 Mg Tab (Lisinopril/Hydrochlorothiazide) 1 Each Tablet 2 Tab PO DAILY Ibuprofen 800 Mg Tablet 1 Tab PO TID PRN Pantoprazole Sodium (Pantoprazole Sodium) 40 Mg Tablet.dr 1 Tab PO DAILY Atorvastatin Calcium 10 Mg Tablet 1 Tab PO HS Amlodipine Besylate 10 Mg Tablet 10 Mg PO DAILY Fenofibrate (Fenofibrate,Micronized) 200 Mg Capsule 1 Cap PO DAILY Aspir 81 (Aspirin) 81 Mg Tablet.dr 1 Tab PO DAILY Allergies Allergies: Coded Allergies: hydrocodone (Verified Adverse Reaction, Intermediate, confusion , 12/10/16) ROS Review of System Review of Systems Review of Systems Constitutional: Denies fever or chills [] Eyes: Denies change in visual acuity, redness, or eye pain [] HENT: Denies nasal congestion or sore throat [] Respiratory: pos cough // shortness of breath [] Cardiovascular: No additional information not addressed in HPI [] GI: Reports nausea. Denies abdominal pain, vomiting, bloody stools or diarrhea [] : Denies dysuria or hematuria [] Musculoskeletal: Denies back pain or joint pain [] Integument: Denies rash or skin lesions [] Neurologic: Reports dizziness. Denies headache, focal weakness or sensory changes [] 14 pt systems were reviewed and found to be within normal limits, except as documented in this note. General: YES: Fatigue Respiratory: YES: SOB with excertion Physical Exam Physical Exam Physical Exam Physical Exam Constitutional: Well developed, well nourished, no acute distress, non-toxic appearance. [] HENT: Normocephalic, atraumatic, bilateral external ears normal, oropharynx moist, no oral exudates, nose normal. [place] using sign language. Family interpreting. Eyes: PERRLA, EOMI, conjunctiva normal, no discharge. [] Neck: Normal range of motion, no tenderness, supple, no stridor. [] Cardiovascular:Heart rate regular rhythm, no murmur [] Lungs & Thorax: Bilateral breath sounds clear to auscultation [] Abdomen: Bowel sounds normal, soft, no tenderness, no masses, no pulsatile masses. [] Skin: Warm, dry, no erythema, no rash. [] Back: No tenderness, no CVA tenderness. [] Extremities: No tenderness, no cyanosis, no clubbing, ROM intact, no edema. [] Neurologic: Alert and oriented X 3, normal motor function, normal sensory function, no focal deficits noted. Cranial nerves II through XII intact Psychologic: Affect normal, judgement normal, mood normal. [] General: Alert, Oriented X3, Cooperative, No acute distress Heart: RRR Breasts: Not examined Abdomen: Normal bowel sounds Rectal Exam: not examined PELVIC: Examination not indicated Extremities: No cyanosis Skin: No rashes Neuro: Cranial nerves 3-12 NL Vitals Vitals Vital Signs Date Time Temp Pulse Resp B/P (MAP) Pulse Ox O2 Delivery O2 Flow Rate FiO2 10/02/19 16:25 Room Air 10/02/19 15:00 97.5 93 16 136/85 (102) 97.5 10/02/19 14:20 97 Labs Labs Laboratory Tests Test 10/02/19 11:52 10/02/19 12:18 10/02/19 12:45 10/02/19 14:11 White Blood Count 9.7 x10^3/uL (4.0-11.0) Red Blood Count 5.15 x10^6/uL (4.30-5.70) Hemoglobin 14.9 g/dL (13.0-17.5) Hematocrit 42.6 % (39.0-53.0) Mean Corpuscular Volume 83 fL (79-100) Mean Corpuscular Hemoglobin 29 pg (25-35) Mean Corpuscular Hemoglobin Concent 35 g/dL (31-37) Red Cell Distribution Width 13.3 % (11.5-14.5) Platelet Count 222 x10^3/uL (140-400) Neutrophils (%) (Auto) 84 % (31-73) Lymphocytes (%) (Auto) 10 % (24-48) Monocytes (%) (Auto) 4 % (0-9) Eosinophils (%) (Auto) 1 % (0-3) Basophils (%) (Auto) 1 % (0-3) Neutrophils # (Auto) 8.2 x10^3/uL (1.8-7.7) Lymphocytes # (Auto) 1.0 x10^3/uL (1.0-4.8) Monocytes # (Auto) 0.4 x10^3/uL (0.0-1.1) Eosinophils # (Auto) 0.1 x10^3/uL (0.0-0.7) Basophils # (Auto) 0.1 x10^3/uL (0.0-0.2) Creatine Kinase 123 U/L (39-308) Creatine Kinase MB (Mass) 0.8 ng/mL (0.0-3.6) Creatine Kinase MB Relative Index 0.7 % (0-4) Troponin I Quantitative < 0.017 ng/mL (0.000-0.055) AX-Gvt-T-Type Natriuretic Peptide 44 pg/mL (0-124) Thyroid Stimulating Hormone (TSH) 0.502 uIU/mL (0.358-3.74) Glucose (Fingerstick) 275 mg/dL (70-99) Sodium Level 135 mmol/L (136-145) Potassium Level 3.9 mmol/L (3.5-5.1) Chloride Level 100 mmol/L (98-107) Carbon Dioxide Level 28 mmol/L (21-32) Anion Gap 7 (6-14) Blood Urea Nitrogen 12 mg/dL (8-26) Creatinine 0.8 mg/dL (0.7-1.3) Estimated GFR (Cockcroft-Gault) 100.4 BUN/Creatinine Ratio 15 (6-20) Glucose Level 290 mg/dL (70-99) Calcium Level 9.0 mg/dL (8.5-10.1) Magnesium Level 1.9 mg/dL (1.8-2.4) Total Bilirubin 0.7 mg/dL (0.2-1.0) Aspartate Amino Transf (AST/SGOT) 21 U/L (15-37) Alanine Aminotransferase (ALT/SGPT) 37 U/L (16-63) Alkaline Phosphatase 125 U/L (46-116) Total Protein 7.7 g/dL (6.4-8.2) Albumin 3.7 g/dL (3.4-5.0) Albumin/Globulin Ratio 0.9 (1.0-1.7) Urine Collection Type Unknown Urine Color Yellow Urine Clarity Clear Urine pH 7.0 Urine Specific [place] 1.025 Urine Protein 30 mg/dL (NEG-TRACE) Urine Glucose (UA) >=1000 mg/dL (NEG) Urine Ketones (Stick) Negative mg/dL (NEG) Urine Blood Negative (NEG) Urine Nitrite Negative (NEG) Urine Bilirubin Negative (NEG) Urine Urobilinogen Dipstick 1.0 mg/dL (0.2 mg/dL) Urine Leukocyte Esterase Negative (NEG) Urine RBC 0 /HPF (0-2) Urine WBC 0 /HPF (0-4) Urine Bacteria 0 /HPF (0-FEW) Urine Opiates Screen Neg (NEG) Urine Methadone Screen Neg (NEG) Urine Barbiturates Neg (NEG) Urine Phencyclidine Screen Neg (NEG) Urine Amphetamine/Methamphetamine Neg (NEG) Urine Benzodiazepines Screen Neg (NEG) Urine Cocaine Screen Neg (NEG) Urine Cannabinoids Screen Neg (NEG) Urine Ethyl Alcohol Neg (NEG) Test 10/02/19 16:42 Glucose (Fingerstick) 337 mg/dL (70-99) Laboratory Tests Test 10/02/19 11:52 10/02/19 12:18 10/02/19 12:45 10/02/19 14:11 White Blood Count 9.7 x10^3/uL (4.0-11.0) Red Blood Count 5.15 x10^6/uL (4.30-5.70) Hemoglobin 14.9 g/dL (13.0-17.5) Hematocrit 42.6 % (39.0-53.0) Mean Corpuscular Volume 83 fL (79-100) Mean Corpuscular Hemoglobin 29 pg (25-35) Mean Corpuscular Hemoglobin Concent 35 g/dL (31-37) Red Cell Distribution Width 13.3 % (11.5-14.5) Platelet Count 222 x10^3/uL (140-400) Neutrophils (%) (Auto) 84 % (31-73) Lymphocytes (%) (Auto) 10 % (24-48) Monocytes (%) (Auto) 4 % (0-9) Eosinophils (%) (Auto) 1 % (0-3) Basophils (%) (Auto) 1 % (0-3) Neutrophils # (Auto) 8.2 x10^3/uL (1.8-7.7) Lymphocytes # (Auto) 1.0 x10^3/uL (1.0-4.8) Monocytes # (Auto) 0.4 x10^3/uL (0.0-1.1) Eosinophils # (Auto) 0.1 x10^3/uL (0.0-0.7) Basophils # (Auto) 0.1 x10^3/uL (0.0-0.2) Creatine Kinase 123 U/L (39-308) Creatine Kinase MB (Mass) 0.8 ng/mL (0.0-3.6) Creatine Kinase MB Relative Index 0.7 % (0-4) Troponin I Quantitative < 0.017 ng/mL (0.000-0.055) RV-Rwv-N-Type Natriuretic Peptide 44 pg/mL (0-124) Thyroid Stimulating Hormone (TSH) 0.502 uIU/mL (0.358-3.74) Glucose (Fingerstick) 275 mg/dL (70-99) Sodium Level 135 mmol/L (136-145) Potassium Level 3.9 mmol/L (3.5-5.1) Chloride Level 100 mmol/L (98-107) Carbon Dioxide Level 28 mmol/L (21-32) Anion Gap 7 (6-14) Blood Urea Nitrogen 12 mg/dL (8-26) Creatinine 0.8 mg/dL (0.7-1.3) Estimated GFR (Cockcroft-Gault) 100.4 BUN/Creatinine Ratio 15 (6-20) Glucose Level 290 mg/dL (70-99) Calcium Level 9.0 mg/dL (8.5-10.1) Magnesium Level 1.9 mg/dL (1.8-2.4) Total Bilirubin 0.7 mg/dL (0.2-1.0) Aspartate Amino Transf (AST/SGOT) 21 U/L (15-37) Alanine Aminotransferase (ALT/SGPT) 37 U/L (16-63) Alkaline Phosphatase 125 U/L (46-116) Total Protein 7.7 g/dL (6.4-8.2) Albumin 3.7 g/dL (3.4-5.0) Albumin/Globulin Ratio 0.9 (1.0-1.7) Urine Collection Type Unknown Urine Color Yellow Urine Clarity Clear Urine pH 7.0 Urine Specific [place] 1.025 Urine Protein 30 mg/dL (NEG-TRACE) Urine Glucose (UA) >=1000 mg/dL (NEG) Urine Ketones (Stick) Negative mg/dL (NEG) Urine Blood Negative (NEG) Urine Nitrite Negative (NEG) Urine Bilirubin Negative (NEG) Urine Urobilinogen Dipstick 1.0 mg/dL (0.2 mg/dL) Urine Leukocyte Esterase Negative (NEG) Urine RBC 0 /HPF (0-2) Urine WBC 0 /HPF (0-4) Urine Bacteria 0 /HPF (0-FEW) Urine Opiates Screen Neg (NEG) Urine Methadone Screen Neg (NEG) Urine Barbiturates Neg (NEG) Urine Phencyclidine Screen Neg (NEG) Urine Amphetamine/Methamphetamine Neg (NEG) Urine Benzodiazepines Screen Neg (NEG) Urine Cocaine Screen Neg (NEG) Urine Cannabinoids Screen Neg (NEG) Urine Ethyl Alcohol Neg (NEG) Test 10/02/19 16:42 Glucose (Fingerstick) 337 mg/dL (70-99) Images Images AP chest x-ray HISTORY: Dizziness. COMPARISON: Chest x-ray September 04, 2019. FINDINGS: Mild cardiomegaly stable. Calcified granulomas of the left hilum and left lower lobe stable. Mild interstitial infiltrates at the lung bases new from prior x-rays could indicate mild interstitial edema, or atypical infection such as a viral pneumonitis or PCP pneumonia. No pulmonary opacity or consolidation. Bones are unremarkable. IMPRESSION: Lower lobe interstitial infiltrates have developed may indicate mild interstitial edema versus sequela of an atypical infection as described above. Mild cardiomegaly stable. Electronically signed by: Melvin Sykes MD (10/02/2019 1:08 PM) [id number] DICTATED and SIGNED BY: MELVIN SYEKS MD VTE Prophylaxis Ordered VTE Prophylaxis Devices: No VTE Pharmacological Prophylaxi: Yes Assessment/Plan Assessment/Plan IMPRESSION: Lower lobe interstitial infiltrates have developed may indicate mild interstitial edema versus sequela of an atypical infection Mild cardiomegaly uncontrolled diabetes hypertension nausea and vomiting Nonobstructive bowel gas pattern. The thumbprinting on the left is consistent with bowel wall edema and could be inflammatory or infectious colitis. plan iv rocephin, zithromax q 24 hrs duonebs qid iv zofran 4 mg q 4 hrs prn iv fluid support accuchecks dvt prophylaxis REMI HARTMAN MD Oct 02, 2019 19:17
[2019-10-02] MEDS ORDERED: IBUPROFEN 400 MG TABLET. PO PRN (20:00)
[2019-10-02] MEDS ORDERED: ONDANSETRON ODT 4 MG TAB.RAPDIS. PO PRN (20:00)
[2019-10-02] MEDS ORDERED: DICLOFENAC SODIUM 25 MG TABLET.DR PO SCH (21:00)
[2019-10-02] MEDS: CYCLOBENZAPRINE 10 MG TABLET. PO SCH (21:06)
[2019-10-02] MEDS: DICLOFENAC SODIUM 25 MG TABLET.DR PO SCH (21:06)
[2019-10-02] MEDS: ATORVASTATIN CALCIUM 10 MG TABLET. PO SCH (21:06)
[2019-10-02] MEDS ORDERED: guaiFENesin ORAL 200 MG/10 ML LIQUID. PO PRN (22:00)
[2019-10-02] MEDS ORDERED: DOCUSATE SODIUM 100 MG CAPSULE. PO PRN (22:00)
[2019-10-02] MEDS ORDERED: 0.9 % SODIUM CHLORIDE 10 ML DISP.SYRIN. IV PRN (22:00)
[2019-10-02] MEDS ORDERED: cloNIDine HCL 0.1 MG TABLET PO PRN (22:00)
[2019-10-02] MEDS ORDERED: ACETAMINOPHEN 650 MG SUPP.RECT. PR PRN (22:00)
[2019-10-02] MEDS: IPRATRPIUM/ALBUTEROL 0.5/2.5MG 3 ML NEBU. NEB SCH (22:00)
--- NOTE | 2019-10-02 22:08 | EKG ---
[facility] [address] [place] [address] Test Date: 2019-10-02 Test Time: 13:08:01 Pat Name: JULIÁN HEATON Department: Room: Gender: M [employer] Prom[employer]: : 1965 Requested By: DOMINGA MITCHELL Order Number: [id number] Reading MD: Measurements Intervals [place] Rate: 75 P: 41 TX: 176 QRS: 28 QRSD: 86 T: 31 QT: 370 QTc: 415 Interpretive Statements SINUS RHYTHM LEFT ATRIAL ABNORMALITY NON SPECIFIC ST-T ABNORMALITY (ELEVATION) ABNORMAL ECG No previous ECG available for comparison
[2019-10-02] MEDS: ENOXAPARIN 40 MG/0.4 ML SYRINGE. SQ SCH (23:00)
[2019-10-02 23:08] VITALS: BP 120/71
[2019-10-03] MEDS: IV NORMAL SALINE 1000ML BAG 1,000 ML IV SCH ×3 (02:32→21:08)
[2019-10-03 03:05] VITALS: BP 121/81
[2019-10-03 04:56] LABS: BASO # 0.1 x10^3/uL (0.0-0.2); BASO % 1 % (0-3); EOS # 0.3 x10^3/uL (0.0-0.7); EOS % 3 % (0-3); HEMATOCRIT 38.7 % (39.0-53.0); HEMOGLOBIN 13.7 g/dL (13.0-17.5); LYMPH # 2.5 x10^3/uL (1.0-4.8); LYMPH % 26 % (24-48); MEAN CORPUSCULAR HEMOGLOBIN 29 pg (25-35); MEAN CORPUSCULAR HGB CONC 35 g/dL (31-37); MEAN CORPUSCULAR VOLUME 83 fL (79-100); MONO # 0.6 x10^3/uL (0.0-1.1); MONO % 7 % (0-9); NEUT % 63 % (31-73); PLATELET COUNT 210 x10^3/uL (140-400); RED BLOOD COUNT 4.67 x10^6/uL (4.30-5.70); RED CELL DISTRIBUTION WIDTH 13.6 % (11.5-14.5); WHITE BLOOD COUNT 9.5 x10^3/uL (4.0-11.0)
[2019-10-03 05:43] LABS: CALCIUM 8.5 mg/dL (8.5-10.1); CREATININE 0.7 mg/dL (0.7-1.3); GFR 117.1; POTASSIUM 3.2 mmol/L (3.5-5.1)
[2019-10-03] MEDS: IPRATRPIUM/ALBUTEROL 0.5/2.5MG 3 ML NEBU. NEB SCH ×5 (06:00→22:00)
[2019-10-03 07:00] VITALS: BP 141/83
[2019-10-03] MEDS ORDERED: AZITHRMYCN 500MG IVPB FOR OMNI 250 ML IV SCH (08:00)
[2019-10-03] MEDS: glipiZIDE 5 MG TABLET PO SCH ×2 (08:40→15:55)
[2019-10-03] MEDS: ASPIRIN ENTERIC COATED 81 MG TABLET.DR. PO SCH (08:41)
[2019-10-03] MEDS: DICLOFENAC SODIUM 25 MG TABLET.DR PO SCH ×2 (08:41→21:08)
[2019-10-03] MEDS: LISINOPRIL 20 MG TABLET PO SCH (08:41)
[2019-10-03] MEDS: PANTOPRAZOLE 40 MG TABLET.DR. PO SCH (08:41)
[2019-10-03] MEDS: hydroCHLOROthiazide 25 MG TABLET PO SCH (08:42)
[2019-10-03] MEDS: amLODIPine BESYLATE 10 MG TABLET PO SCH (08:42)
[2019-10-03] MEDS: metFORMIN XR 500 MG TAB.ER.24H PO SCH (08:42)
[2019-10-03] MEDS: CYCLOBENZAPRINE 10 MG TABLET. PO SCH ×3 (08:42→21:08)
[2019-10-03] MEDS: FENOFIBRATE,MICRONIZED 134 MG CAPSULE PO SCH (08:42)
[2019-10-03] MEDS: cefTRIAXone IV Push 1 GM VIAL. IVP SCH (08:43)
[2019-10-03] MEDS: AZITHROMYCIN 500 MG in IV NORMAL SALINE 250ML 250 ML IV SCH (08:43)
[2019-10-03] MEDS: INSULIN LISPRO 300 UNITS/3 ML VIAL. SQ SCH ×3 (08:55→17:00)
[2019-10-03 11:00] VITALS: BP 138/78
--- NOTE | 2019-10-03 14:38 | PDOC ---
[facility] PROGRESS NOTE Chief Complaint Chief Complaint Lower lobe interstitial infiltrates have developed may indicate mild interstitial edema versus sequela of an atypical infection Mild cardiomegaly Uncontrolled Diabetes Hypertension Nausea and vomiting History of Present Illness History of Present Illness 10/03/2019 Pt seen and examined alongside his . He is and she is able to sign for our communication. Chart reviewed and care discussed with nursing staff. Pt laying comfortably in bed, NAD. He says he feels a little better today. He continues to feel LEWIS and mild dizziness. Vitals/I&O Vitals/I&O: Vital Signs Date Time Temp Pulse Resp B/P (MAP) Pulse Ox O2 Delivery O2 Flow Rate FiO2 10/03/19 11:00 98.4 70 19 138/78 (98) 97 Room Air 98.4 Physical Exam General: Alert, Oriented X3, Cooperative, No acute distress Lungs: Clear, Other Abdomen: Normal bowel sounds Extremities: No cyanosis Skin: No rashes Labs Labs: Laboratory Tests Test 10/02/19 16:42 10/02/19 20:26 10/03/19 04:30 10/03/19 07:00 Glucose (Fingerstick) 337 mg/dL (70-99) 291 mg/dL (70-99) 180 mg/dL (70-99) White Blood Count 9.5 x10^3/uL (4.0-11.0) Red Blood Count 4.67 x10^6/uL (4.30-5.70) Hemoglobin 13.7 g/dL (13.0-17.5) Hematocrit 38.7 % (39.0-53.0) Mean Corpuscular Volume 83 fL (79-100) Mean Corpuscular Hemoglobin 29 pg (25-35) Mean Corpuscular Hemoglobin Concent 35 g/dL (31-37) Red Cell Distribution Width 13.6 % (11.5-14.5) Platelet Count 210 x10^3/uL (140-400) Neutrophils (%) (Auto) 63 % (31-73) Lymphocytes (%) (Auto) 26 % (24-48) Monocytes (%) (Auto) 7 % (0-9) Eosinophils (%) (Auto) 3 % (0-3) Basophils (%) (Auto) 1 % (0-3) Neutrophils # (Auto) 6.0 x10^3/uL (1.8-7.7) Lymphocytes # (Auto) 2.5 x10^3/uL (1.0-4.8) Monocytes # (Auto) 0.6 x10^3/uL (0.0-1.1) Eosinophils # (Auto) 0.3 x10^3/uL (0.0-0.7) Basophils # (Auto) 0.1 x10^3/uL (0.0-0.2) Sodium Level 139 mmol/L (136-145) Potassium Level 3.2 mmol/L (3.5-5.1) Chloride Level 103 mmol/L (98-107) Carbon Dioxide Level 28 mmol/L (21-32) Anion Gap 8 (6-14) Blood Urea Nitrogen 13 mg/dL (8-26) Creatinine 0.7 mg/dL (0.7-1.3) Estimated GFR (Cockcroft-Gault) 117.1 Glucose Level 179 mg/dL (70-99) Calcium Level 8.5 mg/dL (8.5-10.1) Test 10/03/19 11:02 Glucose (Fingerstick) 226 mg/dL (70-99) Review of Systems Review of Systems: Denies chest pain or SOA Reports dizziness Assessment and Plan Assessmemt and Plan Problems Medical Problems: (1) Bilateral pulmonary infiltrates on CXR Status: Acute (2) Dizziness Status: Acute ASSESSMENT: Lower lobe interstitial infiltrates have developed may indicate mild interstitial edema versus sequela of an atypical infection Mild cardiomegaly Uncontrolled Diabetes Hypertension Nausea and vomiting PLAN: -ADAT -Continue IV abx (rocephin, zithromax q 24 hrs) -IVF support -Duonebs qid -Home meds -Trend labs -IV Zofran 4 mg q 4 hrs PRN -PT/OT -DVT ppx -Full code Comment Review of Relevant I have reviewed the following items emiliano (where applicable) has been applied. Medications: Current Medications Medications (Trade) Dose Ordered Sig/Sharyn Route PRN Reason Start Time Stop Time Status Last Admin Dose Admin Ceftriaxone Sodium (Rocephin) 1 gm 1X ONCE IVP 10/02/19 14:45 10/02/19 14:46 DC 10/02/19 15:10 Azithromycin 250 ml @ 250 mls/hr 1X ONCE IV 10/02/19 14:45 10/02/19 15:44 DC 10/02/19 15:00 Ondansetron HCl (Zofran) 4 mg 1X ONCE IVP 10/02/19 15:15 10/02/19 15:16 DC 10/02/19 15:13 Insulin Human Lispro (HumaLOG) 0-5 UNITS TIDWMEALS SQ 10/02/19 17:00 10/03/19 12:25 Amlodipine Besylate (Norvasc) 10 mg DAILY PO 10/03/19 09:00 10/03/19 08:42 Aspirin (Ecotrin) 81 mg DAILY PO 10/03/19 09:00 10/03/19 08:41 Atorvastatin Calcium (Lipitor) 10 mg HS PO 10/02/19 21:00 10/02/19 21:06 Cyclobenzaprine HCl (Flexeril) 10 mg TID PO 10/02/19 21:00 10/03/19 08:42 Pantoprazole Sodium (Protonix) 40 mg DAILY PO 10/03/19 09:00 10/03/19 08:41 Fenofibrate (Lofibra) 134 mg DAILY PO 10/03/19 09:00 10/03/19 08:42 Glipizide (Glucotrol) 10 mg BIDBFRMEAL PO 10/03/19 07:30 10/03/19 08:40 Lisinopril (Prinivil) 40 mg DAILY PO 10/03/19 09:00 10/03/19 08:41 Metformin HCl (Glucophage Xr) 1,000 mg DAILYWBKFT PO 10/03/19 08:00 10/03/19 08:42 Diclofenac Sodium (Voltaren) 50 mg BID PO 10/02/19 21:00 10/03/19 08:41 Hydrochlorothiazide (Hydrodiuril) 25 mg DAILY PO 10/03/19 09:00 10/03/19 08:42 Sodium Chloride 1,000 ml @ 100 mls/hr Q10H IV 10/02/19 22:30 10/03/19 13:06 Albuterol/ Ipratropium (Duoneb) 3 ml Q4HRS W/A NEB 10/02/19 22:00 10/03/19 10:11 Ceftriaxone Sodium (Rocephin) 1 gm Q24H IVP 10/03/19 09:00 10/03/19 08:43 Azithromycin 500 mg/Sodium Chloride 250 ml @ 250 mls/hr Q24H IV 10/03/19 09:00 10/03/19 08:43 COREY TERAN III DO Oct 03, 2019 14:38
[2019-10-03 15:00] VITALS: BP 132/70
[2019-10-03 19:00] VITALS: BP 124/80
[2019-10-03] MEDS: ATORVASTATIN CALCIUM 10 MG TABLET. PO SCH (21:08)
[2019-10-03] MEDS: ENOXAPARIN 40 MG/0.4 ML SYRINGE. SQ SCH (23:00)
[2019-10-03 23:09] VITALS: BP 121/79
[2019-10-04 03:14] VITALS: BP 130/76
[2019-10-04 05:25] LABS: CALCIUM 8.2 mg/dL (8.5-10.1); CREATININE 0.7 mg/dL (0.7-1.3); GFR 117.1; POTASSIUM 3.3 mmol/L (3.5-5.1)
[2019-10-04 05:29] LABS: BASO # 0.1 x10^3/uL (0.0-0.2); BASO % 1 % (0-3); EOS # 0.3 x10^3/uL (0.0-0.7); EOS % 3 % (0-3); HEMATOCRIT 38.8 % (39.0-53.0); HEMOGLOBIN 13.5 g/dL (13.0-17.5); LYMPH # 2.6 x10^3/uL (1.0-4.8); LYMPH % 29 % (24-48); MEAN CORPUSCULAR HEMOGLOBIN 29 pg (25-35); MEAN CORPUSCULAR HGB CONC 35 g/dL (31-37); MEAN CORPUSCULAR VOLUME 84 fL (79-100); MONO # 0.6 x10^3/uL (0.0-1.1); MONO % 7 % (0-9); NEUT # 5.5 x10^3/uL (1.8-7.7); NEUT % 61 % (31-73); PLATELET COUNT 212 x10^3/uL (140-400); RED BLOOD COUNT 4.65 x10^6/uL (4.30-5.70); RED CELL DISTRIBUTION WIDTH 13.5 % (11.5-14.5)
[2019-10-04 07:00] VITALS: BP 147/84
[2019-10-04] MEDS: IPRATRPIUM/ALBUTEROL 0.5/2.5MG 3 ML NEBU. NEB SCH ×5 (07:14→22:00)
[2019-10-04] MEDS: INSULIN LISPRO 300 UNITS/3 ML VIAL. SQ SCH ×3 (08:00→16:41)
[2019-10-04] MEDS: IV NORMAL SALINE 1000ML BAG 1,000 ML IV SCH ×2 (08:25→15:57)
[2019-10-04] MEDS: glipiZIDE 5 MG TABLET PO SCH ×2 (08:26→16:44)
[2019-10-04] MEDS: metFORMIN XR 500 MG TAB.ER.24H PO SCH (08:27)
[2019-10-04] MEDS: CYCLOBENZAPRINE 10 MG TABLET. PO SCH ×3 (08:27→20:50)
[2019-10-04] MEDS: amLODIPine BESYLATE 10 MG TABLET PO SCH (08:29)
[2019-10-04] MEDS: LISINOPRIL 20 MG TABLET PO SCH (08:29)
[2019-10-04] MEDS: DICLOFENAC SODIUM 25 MG TABLET.DR PO SCH ×2 (08:29→20:50)
[2019-10-04] MEDS: PANTOPRAZOLE 40 MG TABLET.DR. PO SCH (08:29)
[2019-10-04] MEDS: FENOFIBRATE,MICRONIZED 134 MG CAPSULE PO SCH (08:29)
[2019-10-04] MEDS: ASPIRIN ENTERIC COATED 81 MG TABLET.DR. PO SCH (08:29)
[2019-10-04] MEDS: hydroCHLOROthiazide 25 MG TABLET PO SCH (08:30)
[2019-10-04] MEDS: cefTRIAXone IV Push 1 GM VIAL. IVP SCH (08:32)
[2019-10-04] MEDS: AZITHROMYCIN 500 MG in IV NORMAL SALINE 250ML 250 ML IV SCH (08:32)
[2019-10-04 10:37] VITALS: BP 132/88
--- NOTE | 2019-10-04 12:07 | PDOC ---
[facility] PROGRESS NOTE Chief Complaint Chief Complaint Lower lobe interstitial infiltrates have developed may indicate mild interstitial edema versus sequela of an atypical infection Mild cardiomegaly Uncontrolled Diabetes Hypertension Nausea and vomiting History of Present Illness History of Present Illness 10/03/2019 Pt seen and examined alongside his . He is and she is able to sign for our communication. Chart reviewed and care discussed with nursing staff. Pt laying comfortably in bed, NAD. He says he feels a little better today. He continues to feel LEWIS and mild dizziness. 10/04/2019 Pt seen and examined alongside his . Chart reviewed and care discussed with nursing staff. Pt laying comfortably in bed, NAD. Complaining of left ear pain. Vitals/I&O Vitals/I&O: Vital Signs Date Time Temp Pulse Resp B/P (MAP) Pulse Ox O2 Delivery O2 Flow Rate FiO2 10/04/19 11:29 97 Room Air 10/04/19 10:37 97.9 74 18 132/88 (103) 97.9 I & O 10/03/19 10/03/19 10/04/19 15:00 23:00 07:00 Intake Total 300 ml 300 ml Output Total 800 ml Balance -500 ml 300 ml Physical Exam General: Alert, Oriented X3, Cooperative, No acute distress Lungs: Clear, Other Abdomen: Normal bowel sounds Extremities: No cyanosis Skin: No rashes Labs Labs: Laboratory Tests Test 10/03/19 16:44 10/04/19 04:05 10/04/19 04:15 10/04/19 07:27 Glucose (Fingerstick) 137 mg/dL (70-99) 121 mg/dL (70-99) Sodium Level 143 mmol/L (136-145) Potassium Level 3.3 mmol/L (3.5-5.1) Chloride Level 106 mmol/L (98-107) Carbon Dioxide Level 28 mmol/L (21-32) Anion Gap 9 (6-14) Blood Urea Nitrogen 9 mg/dL (8-26) Creatinine 0.7 mg/dL (0.7-1.3) Estimated GFR (Cockcroft-Gault) 117.1 Glucose Level 128 mg/dL (70-99) Calcium Level 8.2 mg/dL (8.5-10.1) White Blood Count 9.0 x10^3/uL (4.0-11.0) Red Blood Count 4.65 x10^6/uL (4.30-5.70) Hemoglobin 13.5 g/dL (13.0-17.5) Hematocrit 38.8 % (39.0-53.0) Mean Corpuscular Volume 84 fL (79-100) Mean Corpuscular Hemoglobin 29 pg (25-35) Mean Corpuscular Hemoglobin Concent 35 g/dL (31-37) Red Cell Distribution Width 13.5 % (11.5-14.5) Platelet Count 212 x10^3/uL (140-400) Neutrophils (%) (Auto) 61 % (31-73) Lymphocytes (%) (Auto) 29 % (24-48) Monocytes (%) (Auto) 7 % (0-9) Eosinophils (%) (Auto) 3 % (0-3) Basophils (%) (Auto) 1 % (0-3) Neutrophils # (Auto) 5.5 x10^3/uL (1.8-7.7) Lymphocytes # (Auto) 2.6 x10^3/uL (1.0-4.8) Monocytes # (Auto) 0.6 x10^3/uL (0.0-1.1) Eosinophils # (Auto) 0.3 x10^3/uL (0.0-0.7) Basophils # (Auto) 0.1 x10^3/uL (0.0-0.2) Test 10/04/19 11:17 Glucose (Fingerstick) 172 mg/dL (70-99) Assessment and Plan Assessmemt and Plan Problems Medical Problems: (1) Bilateral pulmonary infiltrates on CXR Status: Acute (2) Dizziness Status: Acute ASSESSMENT: Lower lobe interstitial infiltrates have developed may indicate mild interstitial edema versus sequela of an atypical infection Mild cardiomegaly Uncontrolled Diabetes Hypertension Nausea and vomiting PLAN: -Cortisporin ear drops 2 drops to affected ear BID -Continue IV abx (rocephin, zithromax q 24 hrs) -IVF support -Duonebs qid -Home meds -Trend labs -Continue hospital tx Comment Review of Relevant I have reviewed the following items emiliano (where applicable) has been applied. COREY TERAN III DO Oct 04, 2019 12:07
[2019-10-04] MEDS ORDERED: NEOMYCIN/POLYMYXIN/HC OTIC SUSPENSION 10ML BOTTLE. AS ONE (13:00)
[2019-10-04 15:00] VITALS: BP 139/80
--- NOTE | 2019-10-04 16:24 | NUR ---
AURE following. Discussed with RN, pt is from home with mother, pt is deaf and communicates through sign language. AURE met with pt and pt's mom, who translated. 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 SW discussed home health which PT/OT recommending, mother thought outpatient therapy may be better, reported there is a [facility] near their home. Pt will need a script for outpatient therapy, and also needs an medical note stating a date which patient should return to work. RN notified. SW will continue to follow.
[2019-10-04 19:00] VITALS: BP 116/66
[2019-10-04] MEDS: ENOXAPARIN 40 MG/0.4 ML SYRINGE. SQ SCH (20:51)
[2019-10-04] MEDS: LACTOBACILLUS RHAMNOSUS GG 1 CAPSULE. PO SCH (20:51)
[2019-10-04] MEDS: ATORVASTATIN CALCIUM 10 MG TABLET. PO SCH (20:51)
[2019-10-04 23:00] VITALS: BP 120/63
[2019-10-05] MEDS: IV NORMAL SALINE 1000ML BAG 1,000 ML IV SCH ×3 (01:50→20:56)
[2019-10-05 03:34] VITALS: BP 128/81
[2019-10-05 06:10] LABS: BASO # 0.1 x10^3/uL (0.0-0.2); BASO % 1 % (0-3); EOS # 0.3 x10^3/uL (0.0-0.7); EOS % 4 % (0-3); HEMATOCRIT 40.3 % (39.0-53.0); HEMOGLOBIN 13.6 g/dL (13.0-17.5); LYMPH # 2.2 x10^3/uL (1.0-4.8); LYMPH % 31 % (24-48); MEAN CORPUSCULAR HEMOGLOBIN 28 pg (25-35); MEAN CORPUSCULAR HGB CONC 34 g/dL (31-37); MEAN CORPUSCULAR VOLUME 84 fL (79-100); MONO # 0.5 x10^3/uL (0.0-1.1); MONO % 7 % (0-9); NEUT # 4.2 x10^3/uL (1.8-7.7); NEUT % 58 % (31-73); PLATELET COUNT 202 x10^3/uL (140-400); RED BLOOD COUNT 4.81 x10^6/uL (4.30-5.70); RED CELL DISTRIBUTION WIDTH 13.6 % (11.5-14.5); WHITE BLOOD COUNT 7.4 x10^3/uL (4.0-11.0)
[2019-10-05 06:32] LABS: CALCIUM 8.6 mg/dL (8.5-10.1); CREATININE 0.7 mg/dL (0.7-1.3); GFR 117.1; POTASSIUM 3.3 mmol/L (3.5-5.1)
[2019-10-05 07:00] VITALS: BP 133/85
[2019-10-05] MEDS: IPRATRPIUM/ALBUTEROL 0.5/2.5MG 3 ML NEBU. NEB SCH ×5 (07:47→22:00)
[2019-10-05] MEDS: INSULIN LISPRO 300 UNITS/3 ML VIAL. SQ SCH ×3 (08:00→17:00)
[2019-10-05] MEDS: AZITHROMYCIN 500 MG in IV NORMAL SALINE 250ML 250 ML IV SCH (08:21)
[2019-10-05] MEDS: metFORMIN XR 500 MG TAB.ER.24H PO SCH (08:21)
[2019-10-05] MEDS: LACTOBACILLUS RHAMNOSUS GG 1 CAPSULE. PO SCH ×2 (08:22→20:56)
[2019-10-05] MEDS: PANTOPRAZOLE 40 MG TABLET.DR. PO SCH (08:22)
[2019-10-05] MEDS: FENOFIBRATE,MICRONIZED 134 MG CAPSULE PO SCH (08:22)
[2019-10-05] MEDS: glipiZIDE 5 MG TABLET PO SCH ×2 (08:22→17:01)
[2019-10-05] MEDS: ASPIRIN ENTERIC COATED 81 MG TABLET.DR. PO SCH (08:22)
[2019-10-05] MEDS: CYCLOBENZAPRINE 10 MG TABLET. PO SCH ×3 (08:22→20:56)
[2019-10-05] MEDS: DICLOFENAC SODIUM 25 MG TABLET.DR PO SCH ×2 (08:22→20:56)
[2019-10-05] MEDS: hydroCHLOROthiazide 25 MG TABLET PO SCH (08:22)
[2019-10-05] MEDS: LISINOPRIL 20 MG TABLET PO SCH (08:23)
[2019-10-05] MEDS: cefTRIAXone IV Push 1 GM VIAL. IVP SCH (08:23)
[2019-10-05] MEDS: amLODIPine BESYLATE 10 MG TABLET PO SCH (08:23)
[2019-10-05 11:00] VITALS: BP 134/87
--- NOTE | 2019-10-05 11:53 | NUR ---
SW following. Discussed with RN, pt's mother had questions about home health. SW attempted to meet with pt and pt's mother, however therapy was working with pt. Ildefonso Mcdaniels RN met with pt, Ildefonso will accept pt for home health services. SW notified RN, discharge disposition is now home health not outpatient therapy. Dr. Mckoy has been consulted for vertigo, per pt's mother. SW will continue to follow.
--- NOTE | 2019-10-05 12:03 | PDOC ---
[facility] [facility] PROGRESS NOTE Chief Complaint Chief Complaint Lower lobe interstitial infiltrates have developed may indicate mild interstitial edema versus sequela of an atypical infection Mild cardiomegaly Uncontrolled Diabetes Hypertension Nausea and vomiting History of Present Illness History of Present Illness 10/03/2019 Pt seen and examined alongside his . He is and she is able to sign for our communication. Chart reviewed and care discussed with nursing staff. Pt laying comfortably in bed, NAD. He says he feels a little better today. He continues to feel LEWIS and mild dizziness. 10/04/2019 Pt seen and examined alongside his . Chart reviewed and care discussed with nursing staff. Pt laying comfortably in bed, NAD. Complaining of left ear pain. 10/05/2019 Pt seen and examined alongside his . Chart reviewed and care discussed with nursing staff. Answered 's questions regarding FMLA Therapy saw pt this AM rec to stay home until vertigo sx resolve Pt laying comfortably in bed, NAD. Vitals/I&O Vitals/I&O: Vital Signs Date Time Temp Pulse Resp B/P (MAP) Pulse Ox O2 Delivery O2 Flow Rate FiO2 10/05/19 11:32 95 Room Air 10/05/19 08:23 73 128/81 10/05/19 07:00 97.4 18 97.4 I & O 10/04/19 10/04/19 10/05/19 15:00 23:00 07:00 Intake Total 1850 ml 1540 ml Output Total 1300 ml 200 ml Balance 1850 ml 240 ml -200 ml Physical Exam General: Alert, Oriented X3, Cooperative, No acute distress Lungs: Clear, Other Abdomen: Normal bowel sounds Extremities: No cyanosis Skin: No rashes Labs Labs: Laboratory Tests Test 10/04/19 16:26 10/04/19 21:01 10/05/19 04:00 10/05/19 04:06 Glucose (Fingerstick) 135 mg/dL (70-99) 187 mg/dL (70-99) White Blood Count 7.4 x10^3/uL (4.0-11.0) Red Blood Count 4.81 x10^6/uL (4.30-5.70) Hemoglobin 13.6 g/dL (13.0-17.5) Hematocrit 40.3 % (39.0-53.0) Mean Corpuscular Volume 84 fL (79-100) Mean Corpuscular Hemoglobin 28 pg (25-35) Mean Corpuscular Hemoglobin Concent 34 g/dL (31-37) Red Cell Distribution Width 13.6 % (11.5-14.5) Platelet Count 202 x10^3/uL (140-400) Neutrophils (%) (Auto) 58 % (31-73) Lymphocytes (%) (Auto) 31 % (24-48) Monocytes (%) (Auto) 7 % (0-9) Eosinophils (%) (Auto) 4 % (0-3) Basophils (%) (Auto) 1 % (0-3) Neutrophils # (Auto) 4.2 x10^3/uL (1.8-7.7) Lymphocytes # (Auto) 2.2 x10^3/uL (1.0-4.8) Monocytes # (Auto) 0.5 x10^3/uL (0.0-1.1) Eosinophils # (Auto) 0.3 x10^3/uL (0.0-0.7) Basophils # (Auto) 0.1 x10^3/uL (0.0-0.2) Sodium Level 142 mmol/L (136-145) Potassium Level 3.3 mmol/L (3.5-5.1) Chloride Level 104 mmol/L (98-107) Carbon Dioxide Level 30 mmol/L (21-32) Anion Gap 8 (6-14) Blood Urea Nitrogen 11 mg/dL (8-26) Creatinine 0.7 mg/dL (0.7-1.3) Estimated GFR (Cockcroft-Gault) 117.1 Glucose Level 148 mg/dL (70-99) Calcium Level 8.6 mg/dL (8.5-10.1) Test 10/05/19 08:01 10/05/19 11:41 Glucose (Fingerstick) 124 mg/dL (70-99) 148 mg/dL (70-99) Assessment and Plan Assessmemt and Plan Problems Medical Problems: (1) Bilateral pulmonary infiltrates on CXR Status: Acute (2) Dizziness Status: Acute ASSESSMENT: Lower lobe interstitial infiltrates have developed may indicate mild inte rstitial edema versus sequela of an atypical infection Mild cardiomegaly Uncontrolled Diabetes Hypertension Nausea and vomiting Plan: Consult neuro for persistent vertigo Continue ear drops -Continue IV abx (rocephin, zithromax q 24 hrs) -Moncho qid -Home meds -Trend labs dispo: discharge tomorrow with home health Comment Review of Relevant I have reviewed the following items emiliano (where applicable) has been applied. Medications: Current Medications Medications (Trade) Dose Ordered Sig/Sharyn Route PRN Reason Start Time Stop Time Status Last Admin Dose Admin Neomycin/ Polymyxin/ Hydrocortisone (Cortisporin Otic) 2 drop BID ONCE 10/04/19 13:00 10/04/19 13:01 DC 10/04/19 13:37 Lactobacillus Rhamnosus (Culturelle) 1 cap BID PO 10/04/19 21:00 10/05/19 08:22 COREY TERAN III DO Oct 05, 2019 12:03
--- NOTE | 2019-10-05 13:47 | PDOC2 ---
NEUROLOGY CONSULT Date of Admission Date of Admission DATE: 10/05/19 TIME: 13:38 Reason for Consult Reason for Consult: Vertigo Referring Physician Referring Physician: Dr. Stoner Source Source: Caregiver (mother), Chart review, Patient History of Present Illness History of Present Illness The patient is a 54-year-old right-handed male who was admitted 3 days ago with vertigo. He describes room-spinning vertigo. There is no diplopia, dysphagia, dysarthria, numbness, weakness, cognitive change. He has had recent upper- respiratory infection and had a high fever 3 months ago. He does have deafness and has a cochlear implant. There is no history of stroke, seizure, or head injury. Physical therapy has already tried canalith repositioning. 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 Current Medications Current Medications Current Medications Sodium Chloride 1,000 ml @ 1,000 mls/hr 1X ONCE IV Last administered on 10/02/19at 13:17; Start 10/02/19 at 12:45; Stop 10/02/19 at 13:44; Status DC Meclizine HCl (Antivert) 12.5 mg 1X ONCE PO Last administered on 10/02/19at 13:26; Start 10/02/19 at 12:45; Stop 10/02/19 at 12:47; Status DC Ceftriaxone Sodium (Rocephin) 1 gm 1X ONCE IVP Last administered on 10/02/19at 15:10; Start 10/02/19 at 14:45; Stop 10/02/19 at 14:46; Status DC Azithromycin 250 ml @ 250 mls/hr 1X ONCE IV Last administered on 10/02/19at 15:00; Start 10/02/19 at 14:45; Stop 10/02/19 at 15:44; Status DC Ondansetron HCl (Zofran) 4 mg 1X ONCE IVP Last administered on 10/02/19at 15:13; Start 10/02/19 at 15:15; Stop 10/02/19 at 15:16; Status DC Ondansetron HCl (Zofran) 4 mg PRN Q8HRS PRN IV NAUSEA/VOMITING; Start 10/02/19 at 15:30; Stop 10/02/19 at 22:06; Status DC Fentanyl Citrate (Fentanyl 2ml Vial) 50 mcg PRN Q1HR PRN IV PAIN; Start 10/02/19 at 15:30; Stop 10/03/19 at 15:29; Status DC Acetaminophen (Tylenol) 650 mg PRN Q4HRS PRN PO FEVER; Start 10/02/19 at 15:30; Stop 10/02/19 at 22:05; Status DC Insulin Human Lispro (HumaLOG) 0-5 UNITS TIDWMEALS SQ Last administered on 10/04/19at 11:47; Start 10/02/19 at 17:00 Dextrose (Dextrose 50%-Water Syringe) 12.5 gm PRN Q15MIN PRN IV SEE COMMENTS; Start 10/02/19 at 15:30 Amlodipine Besylate (Norvasc) 10 mg DAILY PO Last administered on 10/05/19 08:23; Start 10/03/19 at 09:00 Aspirin (Ecotrin) 81 mg DAILY PO Last administered on 10/05/19 08:22; Start 10/03/19 at 09:00 Atorvastatin Calcium (Lipitor) 10 mg HS PO Last administered on 10/04/19 20:51; Start 10/02/19 at 21:00 Cyclobenzaprine HCl (Flexeril) 10 mg TID PO Last administered on 10/05/19 11:42; Start 10/02/19 at 21:00 Pantoprazole Sodium (Protonix) 40 mg DAILY PO Last administered on 10/05/19 08:22; Start 10/03/19 at 09:00 Diclofenac Sodium (Voltaren) 25 mg BID PO ; Start 10/02/19 at 21:00; Stop 10/02/19 at 19:47; Status DC Fenofibrate (Lofibra) 134 mg DAILY PO Last administered on 10/05/19 08:22; Start 10/03/19 at 09:00 Glipizide (Glucotrol) 10 mg BIDBFRMEAL PO Last administered on 10/05/19at 08:22; Start 10/03/19 at 07:30 Ibuprofen (Motrin) 800 mg PRN TID PRN PO INFLAMMATION; Start 10/02/19 at 20:00 Lisinopril (Prinivil) 40 mg DAILY PO Last administered on 10/05/19 08:23; Start 10/03/19 at 09:00 Metformin HCl (Glucophage Xr) 1,000 mg DAILYWBKFT PO Last administered on 10/05/19 08:21; Start 10/03/19 at 08:00 Ondansetron HCl (Zofran Odt) 4 mg PRN Q8HRS PRN PO NAUSEA/VOMITING; Start 10/02/19 at 20:00 Diclofenac Sodium (Voltaren) 50 mg BID PO Last administered on 10/05/19 08:22; Start 10/02/19 at 21:00 Hydrochlorothiazide (Hydrodiuril) 25 mg DAILY PO Last administered on 10/05/19 08:22; Start 10/03/19 at 09:00 Sodium Chloride (Normal Saline Flush) 3 ml QSHIFT PRN IV AFTER MEDS AND BLOOD DRAWS; Start 10/02/19 at 22:00 Sodium Chloride 1,000 ml @ 100 mls/hr Q10H IV Last administered on 10/05/19 09:25; Start 10/02/19 at 22:30 Ondansetron HCl (Zofran) 4 mg PRN Q4HRS PRN IV NAUSEA/VOMITING 1ST CHOICE Last administered on 10/05/19 11:42; Start 10/02/19 at 22:00 Acetaminophen (Tylenol) 650 mg PRN Q4HRS PRN PO TEMP OVER 100.4F OR MILD PAIN Last administered on 10/05/19 08:37; Start 10/02/19 at 22:00 Acetaminophen (Tylenol Supp) 650 mg PRN Q4HRS PRN MN TEMP OVER 100.4F OR MILD PAIN; Start 10/02/19 at 22:00 Clonidine HCl (Catapres) 0.1 mg PRN Q6HRS PRN PO SBP>160 OR DBP>90; Start 10/02/19 at 22:00 Docusate Sodium (Colace) 100 mg PRN BID PRN PO CONSTIPATION 1ST CHOICE; Start 10/02/19 at 22:00 Albuterol/ Ipratropium (Duoneb) 3 ml Q4HRS W/A NEB Last administered on 10/05/19 11:31; Start 10/02/19 at 22:00 Guaifenesin (Robitussin) 200 mg PRN Q4HRS PRN PO COUGH; Start 10/02/19 at 22:00 Enoxaparin Sodium (Lovenox 40mg Syringe) 40 mg Q24H SQ Last administered on 10/04/19at 20:51; Start 10/02/19 at 23:00 Ceftriaxone Sodium (Rocephin) 1 gm Q24H IVP Last administered on 10/05/19at 08:23; Start 10/03/19 at 09:00 Azithromycin 250 ml @ 250 mls/hr DAILY08 IV ; Start 10/03/19 at 08:00; Status UNV Azithromycin 500 mg/Sodium Chloride 250 ml @ 250 mls/hr Q24H IV Last administered on 10/05/19at 08:21; Start 10/03/19 at 09:00 Neomycin/ Polymyxin/ Hydrocortisone (Cortisporin Otic) 2 drop BID ONCE Last administered on 10/04/19at 13:37; Start 10/04/19 at 13:00; Stop 10/04/19 at 13:01; Status DC Lactobacillus Rhamnosus (Culturelle) 1 cap BID PO Last administered on 10/05/19at 08:22; Start 10/04/19 at 21:00 Meclizine HCl (Antivert) 25 mg TID PO ; Start 10/05/19 at 14:00 Potassium Chloride (Klor-Con) 40 meq 1X ONCE PO ; Start 10/05/19 at 14:00; Stop 10/05/19 at 14:01 Active Scripts Active Zofran (Ondansetron Hcl) 4 Mg Tablet 1 Tab PO PRN Q6-8HRS Diclofenac Potassium 50 Mg Tablet 1 Tab PO BID Ultram (Tramadol Hcl) 50 Mg Tablet 1 Tab PO Q6HRS PRN Reported Glipizide 10 Mg Tablet 1 Tab PO BID Metformin Hcl Er (Metformin Hcl) 1,000 Mg Tab.er.24 1,000 Mg PO DAILYWBKFT Lisinopril-Hctz 20-12.5 Mg Tab (Lisinopril/Hydrochlorothiazide) 1 Each Tablet 2 Tab PO DAILY Pantoprazole Sodium (Pantoprazole Sodium) 40 Mg Tablet.dr 1 Tab PO DAILY Atorvastatin Calcium 10 Mg Tablet 1 Tab PO HS Amlodipine Besylate 10 Mg Tablet 10 Mg PO DAILY Fenofibrate (Fenofibrate,Micronized) 200 Mg Capsule 1 Cap PO DAILY Aspir 81 (Aspirin) 81 Mg Tablet. 1 Tab PO DAILY Allergies Allergies: Coded Allergies: hydrocodone (Verified Adverse Reaction, Intermediate, confusion , 12/10/16) ROS Review of System Negative for fever, chills, weight loss, shortness of breath, chest pain, indigestion, hematochezia, melena, and dysuria. Full 14-point review of systems is negative. Physical Exam Physical Examination General: Well-developed, well-nourished white male in no acute distress HEENT: Normocephalic andatraumatic. Tympanic membranes clear.Temporal arteriespulsatile and nontender. Neck: Supple without bruit, no meningismus Musculoskeletal: Stability:see neurologic. Gait exam:see neurologic. Tone:see neurologic.Strength:see neurologic. Neurological: Mental Status:intact, orientation, memory, attention span/concentration, language, fund of knowledge normal. Deaf. Cranial Nerves:Pupils equal and reactive to light, extraocular movements areintact, visual galindo are full to confrontation. Facial sensation is normal. There is no facial asymmetry. Vestibulo-ocular reflex is intact. No nystagmus elicited, but the patient feels vertigo with head hanging left. Palate elevates and tongue protrudes in midline. All other cranial related problems are negative except as mentioned before.Reflexes:1+ and symmetric with flexor plantar responses. Motor:5/5 strength with normal tone and bulk. Coordination:Finger-nose finger and [id number] testing are normal. Rapid alternating movements and fine finger movements are intact. Gait:Normal, including tandem. Sensory:Normal pinprick, vibration, light touch, proprioception. Vitals VITALS Vital Signs Date Time Temp Pulse Resp B/P (MAP) Pulse Ox O2 Delivery O2 Flow Rate FiO2 10/05/19 11:32 95 Room Air 10/05/19 11:00 98.0 89 18 134/87 (103) 98.0 Labs Labs Laboratory Tests Test 10/03/19 16:44 10/04/19 04:05 10/04/19 04:15 10/04/19 07:27 Glucose (Fingerstick) 137 mg/dL (70-99) 121 mg/dL (70-99) Sodium Level 143 mmol/L (136-145) Potassium Level 3.3 mmol/L (3.5-5.1) Chloride Level 106 mmol/L (98-107) Carbon Dioxide Level 28 mmol/L (21-32) Anion Gap 9 (6-14) Blood Urea Nitrogen 9 mg/dL (8-26) Creatinine 0.7 mg/dL (0.7-1.3) Estimated GFR (Cockcroft-Gault) 117.1 Glucose Level 128 mg/dL (70-99) Calcium Level 8.2 mg/dL (8.5-10.1) White Blood Count 9.0 x10^3/uL (4.0-11.0) Red Blood Count 4.65 x10^6/uL (4.30-5.70) Hemoglobin 13.5 g/dL (13.0-17.5) Hematocrit 38.8 % (39.0-53.0) Mean Corpuscular Volume 84 fL (79-100) Mean Corpuscular Hemoglobin 29 pg (25-35) Mean Corpuscular Hemoglobin Concent 35 g/dL (31-37) Red Cell Distribution Width 13.5 % (11.5-14.5) Platelet Count 212 x10^3/uL (140-400) Neutrophils (%) (Auto) 61 % (31-73) Lymphocytes (%) (Auto) 29 % (24-48) Monocytes (%) (Auto) 7 % (0-9) Eosinophils (%) (Auto) 3 % (0-3) Basophils (%) (Auto) 1 % (0-3) Neutrophils # (Auto) 5.5 x10^3/uL (1.8-7.7) Lymphocytes # (Auto) 2.6 x10^3/uL (1.0-4.8) Monocytes # (Auto) 0.6 x10^3/uL (0.0-1.1) Eosinophils # (Auto) 0.3 x10^3/uL (0.0-0.7) Basophils # (Auto) 0.1 x10^3/uL (0.0-0.2) Test 10/04/19 11:17 10/04/19 16:26 10/04/19 21:01 10/05/19 04:00 Glucose (Fingerstick) 172 mg/dL (70-99) 135 mg/dL (70-99) 187 mg/dL (70-99) White Blood Count 7.4 x10^3/uL (4.0-11.0) Red Blood Count 4.81 x10^6/uL (4.30-5.70) Hemoglobin 13.6 g/dL (13.0-17.5) Hematocrit 40.3 % (39.0-53.0) Mean Corpuscular Volume 84 fL (79-100) Mean Corpuscular Hemoglobin 28 pg (25-35) Mean Corpuscular Hemoglobin Concent 34 g/dL (31-37) Red Cell Distribution Width 13.6 % (11.5-14.5) Platelet Count 202 x10^3/uL (140-400) Neutrophils (%) (Auto) 58 % (31-73) Lymphocytes (%) (Auto) 31 % (24-48) Monocytes (%) (Auto) 7 % (0-9) Eosinophils (%) (Auto) 4 % (0-3) Basophils (%) (Auto) 1 % (0-3) Neutrophils # (Auto) 4.2 x10^3/uL (1.8-7.7) Lymphocytes # (Auto) 2.2 x10^3/uL (1.0-4.8) Monocytes # (Auto) 0.5 x10^3/uL (0.0-1.1) Eosinophils # (Auto) 0.3 x10^3/uL (0.0-0.7) Basophils # (Auto) 0.1 x10^3/uL (0.0-0.2) Test 10/05/19 04:06 10/05/19 08:01 10/05/19 11:41 Sodium Level 142 mmol/L (136-145) Potassium Level 3.3 mmol/L (3.5-5.1) Chloride Level 104 mmol/L (98-107) Carbon Dioxide Level 30 mmol/L (21-32) Anion Gap 8 (6-14) Blood Urea Nitrogen 11 mg/dL (8-26) Creatinine 0.7 mg/dL (0.7-1.3) Estimated GFR (Cockcroft-Gault) 117.1 Glucose Level 148 mg/dL (70-99) Calcium Level 8.6 mg/dL (8.5-10.1) Glucose (Fingerstick) 124 mg/dL (70-99) 148 mg/dL (70-99) Laboratory Tests Test 10/04/19 16:26 10/04/19 21:01 10/05/19 04:00 10/05/19 04:06 Glucose (Fingerstick) 135 mg/dL (70-99) 187 mg/dL (70-99) White Blood Count 7.4 x10^3/uL (4.0-11.0) Red Blood Count 4.81 x10^6/uL (4.30-5.70) Hemoglobin 13.6 g/dL (13.0-17.5) Hematocrit 40.3 % (39.0-53.0) Mean Corpuscular Volume 84 fL (79-100) Mean Corpuscular Hemoglobin 28 pg (25-35) Mean Corpuscular Hemoglobin Concent 34 g/dL (31-37) Red Cell Distribution Width 13.6 % (11.5-14.5) Platelet Count 202 x10^3/uL (140-400) Neutrophils (%) (Auto) 58 % (31-73) Lymphocytes (%) (Auto) 31 % (24-48) Monocytes (%) (Auto) 7 % (0-9) Eosinophils (%) (Auto) 4 % (0-3) Basophils (%) (Auto) 1 % (0-3) Neutrophils # (Auto) 4.2 x10^3/uL (1.8-7.7) Lymphocytes # (Auto) 2.2 x10^3/uL (1.0-4.8) Monocytes # (Auto) 0.5 x10^3/uL (0.0-1.1) Eosinophils # (Auto) 0.3 x10^3/uL (0.0-0.7) Basophils # (Auto) 0.1 x10^3/uL (0.0-0.2) Sodium Level 142 mmol/L (136-145) Potassium Level 3.3 mmol/L (3.5-5.1) Chloride Level 104 mmol/L (98-107) Carbon Dioxide Level 30 mmol/L (21-32) Anion Gap 8 (6-14) Blood Urea Nitrogen 11 mg/dL (8-26) Creatinine 0.7 mg/dL (0.7-1.3) Estimated GFR (Cockcroft-Gault) 117.1 Glucose Level 148 mg/dL (70-99) Calcium Level 8.6 mg/dL (8.5-10.1) Test 10/05/19 08:01 10/05/19 11:41 Glucose (Fingerstick) 124 mg/dL (70-99) 148 mg/dL (70-99) Assessment/Plan Assessment/Plan Impression: Peripheral vertigo, probably vestibular neuronitis from his recent cold. Congenital deafness, history of cochlear implant. Recommendations: CT of the head Continue vestibular rehabilitation Continue meclizine Outpatient ENT consult if symptoms persist. Discussed with the patient and his mother. Thank you for letting me help with the patient's care. BOLIVAR RICHARDS MD Oct 05, 2019 13:47
[2019-10-05] MEDS ORDERED: POTASSIUM CHLORIDE 20 MEQ TABLET.ER. PO ONE (14:00)
[2019-10-05] MEDS: MECLIZINE HCL 12.5 MG TABLET. PO SCH ×2 (14:21→20:57)
[2019-10-05 15:00] VITALS: BP 117/75
--- NOTE | 2019-10-05 16:48 | RAD ---
CT HEAD WO CONTRAST Clinical indications: Vertigo. Patient has cochlear implant. COMPARISON: None available. Technique: Noncontrast axial cross sectional scanning of the head was performed. PQRS compliance Statement One or more of the following individualized dose reduction techniques were utilized for this study: 1. Automated exposure control 2. Adjustment of the mA and/or kV according to patient size 3. Use of iterative reconstruction technique Findings: There is metallic artifact involving the left side of the brain related to a cochlear implant device. This does obscure portions of the left side of the brain. Given this, no acute intracranial hemorrhage or midline shift or mass-effect or hydrocephalus or extra-axial fluid collection is seen. There is mild bilateral periventricular and subcortical white matter hypodensity which may be secondary to chronic small vessel ischemic disease in this age group. This could be seen with a demyelinating process such as multiple sclerosis if there is a history of such. No skull fracture or pneumocephalus is seen. No opacification of the mastoid sinuses or the middle ear cavities or the paranasal sinuses is seen. The maxillary sinuses are not completely seen in this study. Impression: No acute intracranial abnormality is seen within the limits of the study. Mild bilateral periventricular and subcortical white matter hypodensity which may be secondary to chronic small vessel ischemic disease in this age group. This could be seen with a demyelinating process such as multiple sclerosis if there is a history of such. Electronically signed by: Pasquale John MD (10/05/2019 4:45 PM) [facility] [place]
[2019-10-05 19:00] VITALS: BP 130/79
[2019-10-05] MEDS: ENOXAPARIN 40 MG/0.4 ML SYRINGE. SQ SCH (20:57)
[2019-10-05] MEDS: ATORVASTATIN CALCIUM 10 MG TABLET. PO SCH (20:57)
[2019-10-05 23:00] VITALS: BP 121/70
[2019-10-06 03:00] VITALS: BP 108/72
[2019-10-06] MEDS: IV NORMAL SALINE 1000ML BAG 1,000 ML IV SCH (05:30)
[2019-10-06 07:00] VITALS: BP 133/84
[2019-10-06] MEDS: IPRATRPIUM/ALBUTEROL 0.5/2.5MG 3 ML NEBU. NEB SCH ×3 (07:34→11:53)
[2019-10-06] MEDS: INSULIN LISPRO 300 UNITS/3 ML VIAL. SQ SCH ×2 (08:00→12:30)
[2019-10-06] MEDS: cefTRIAXone IV Push 1 GM VIAL. IVP SCH (08:54)
[2019-10-06] MEDS: AZITHROMYCIN 500 MG in IV NORMAL SALINE 250ML 250 ML IV SCH (08:54)
[2019-10-06] MEDS: LACTOBACILLUS RHAMNOSUS GG 1 CAPSULE. PO SCH (08:55)
[2019-10-06] MEDS: PANTOPRAZOLE 40 MG TABLET.DR. PO SCH (08:55)
[2019-10-06] MEDS: glipiZIDE 5 MG TABLET PO SCH (08:55)
[2019-10-06] MEDS: metFORMIN XR 500 MG TAB.ER.24H PO SCH (08:55)
[2019-10-06] MEDS: hydroCHLOROthiazide 25 MG TABLET PO SCH (08:55)
[2019-10-06] MEDS: DICLOFENAC SODIUM 25 MG TABLET.DR PO SCH (08:55)
[2019-10-06] MEDS: ASPIRIN ENTERIC COATED 81 MG TABLET.DR. PO SCH (08:55)
[2019-10-06] MEDS: LISINOPRIL 20 MG TABLET PO SCH (08:56)
[2019-10-06] MEDS: CYCLOBENZAPRINE 10 MG TABLET. PO SCH ×2 (08:56→14:41)
[2019-10-06] MEDS: amLODIPine BESYLATE 10 MG TABLET PO SCH (08:56)
[2019-10-06] MEDS: MECLIZINE HCL 12.5 MG TABLET. PO SCH ×2 (08:56→14:41)
[2019-10-06] MEDS: FENOFIBRATE,MICRONIZED 134 MG CAPSULE PO SCH (08:56)
[2019-10-06 09:42] LABS: BASO % 1 % (0-3); EOS # 0.3 x10^3/uL (0.0-0.7); EOS % 5 % (0-3); HEMATOCRIT 41.4 % (39.0-53.0); HEMOGLOBIN 14.2 g/dL (13.0-17.5); LYMPH # 1.7 x10^3/uL (1.0-4.8); LYMPH % 27 % (24-48); MEAN CORPUSCULAR HEMOGLOBIN 29 pg (25-35); MEAN CORPUSCULAR HGB CONC 34 g/dL (31-37); MEAN CORPUSCULAR VOLUME 83 fL (79-100); MONO # 0.4 x10^3/uL (0.0-1.1); MONO % 6 % (0-9); NEUT % 62 % (31-73); PLATELET COUNT 235 x10^3/uL (140-400); RED CELL DISTRIBUTION WIDTH 13.5 % (11.5-14.5); WHITE BLOOD COUNT 6.5 x10^3/uL (4.0-11.0)
[2019-10-06 09:54] LABS: CALCIUM 8.7 mg/dL (8.5-10.1); CREATININE 0.8 mg/dL (0.7-1.3); GFR 100.4; POTASSIUM 3.8 mmol/L (3.5-5.1)
[2019-10-06 11:00] VITALS: BP 124/82
--- NOTE | 2019-10-06 11:32 | PDOC ---
PROGRESS NOTES Assessment Problems Medical Problems: (1) Bilateral pulmonary infiltrates on CXR Status: Acute (2) Dizziness Status: Acute Peripheral vertigo, probably vestibular neuronitis from his recent cold. Congenital deafness, history of cochlear implant. [facility] Continue meclizine, should not use beyond 2-3 weeks as it will interfere with the brain's habituation to the abnormal vestibular input Outpatient ENT consult, Kesha Ardon M.D., if symptoms persist. Follow-up with me in 4-6 weeks Discussed with the patient and his mother. Subjective Feels better, wants to go home Objective Vital Signs Date Time Temp Pulse Resp B/P (MAP) Pulse Ox O2 Delivery O2 Flow Rate FiO2 10/06/19 08:56 83 133/84 10/06/19 07:55 Room Air 10/06/19 07:36 95 10/06/19 07:00 97.9 17 97.9 Intake and Output 10/06/19 07:00 Intake Total 3580 ml Output Total 330 ml Balance 3250 ml Intake Oral 1580 ml IV Total 2000 ml Output Urine Total 330 ml # Voids 4 # Bowel Movements 1 PHYSICAL EXAM Alert. Oriented to time, place and person. Deaf. PERRL. EOMI. CN: no focal findings. No nystagmus elicited. Muscle tone: normal. Muscle strength: 5/5 DTR: 1+ Plantar reflex: flexor Gait: not examined in bed. Sensory exam: no abnormal findings. No cerebellar signs elicited. Review of Relevant I have reviewed the following items emiliano (where applicable) has been applied. Labs Laboratory Tests Test 10/04/19 16:26 10/04/19 21:01 10/05/19 04:00 10/05/19 04:06 Glucose (Fingerstick) 135 mg/dL (70-99) 187 mg/dL (70-99) White Blood Count 7.4 x10^3/uL (4.0-11.0) Red Blood Count 4.81 x10^6/uL (4.30-5.70) Hemoglobin 13.6 g/dL (13.0-17.5) Hematocrit 40.3 % (39.0-53.0) Mean Corpuscular Volume 84 fL (79-100) Mean Corpuscular Hemoglobin 28 pg (25-35) Mean Corpuscular Hemoglobin Concent 34 g/dL (31-37) Red Cell Distribution Width 13.6 % (11.5-14.5) Platelet Count 202 x10^3/uL (140-400) Neutrophils (%) (Auto) 58 % (31-73) Lymphocytes (%) (Auto) 31 % (24-48) Monocytes (%) (Auto) 7 % (0-9) Eosinophils (%) (Auto) 4 % (0-3) Basophils (%) (Auto) 1 % (0-3) Neutrophils # (Auto) 4.2 x10^3/uL (1.8-7.7) Lymphocytes # (Auto) 2.2 x10^3/uL (1.0-4.8) Monocytes # (Auto) 0.5 x10^3/uL (0.0-1.1) Eosinophils # (Auto) 0.3 x10^3/uL (0.0-0.7) Basophils # (Auto) 0.1 x10^3/uL (0.0-0.2) Sodium Level 142 mmol/L (136-145) Potassium Level 3.3 mmol/L (3.5-5.1) Chloride Level 104 mmol/L (98-107) Carbon Dioxide Level 30 mmol/L (21-32) Anion Gap 8 (6-14) Blood Urea Nitrogen 11 mg/dL (8-26) Creatinine 0.7 mg/dL (0.7-1.3) Estimated GFR (Cockcroft-Gault) 117.1 Glucose Level 148 mg/dL (70-99) Calcium Level 8.6 mg/dL (8.5-10.1) Test 10/05/19 08:01 10/05/19 11:41 10/05/19 16:29 10/06/19 01:02 Glucose (Fingerstick) 124 mg/dL (70-99) 148 mg/dL (70-99) 124 mg/dL (70-99) 189 mg/dL (70-99) Test 10/06/19 07:43 10/06/19 09:20 Glucose (Fingerstick) 136 mg/dL (70-99) White Blood Count 6.5 x10^3/uL (4.0-11.0) Red Blood Count 5.00 x10^6/uL (4.30-5.70) Hemoglobin 14.2 g/dL (13.0-17.5) Hematocrit 41.4 % (39.0-53.0) Mean Corpuscular Volume 83 fL (79-100) Mean Corpuscular Hemoglobin 29 pg (25-35) Mean Corpuscular Hemoglobin Concent 34 g/dL (31-37) Red Cell Distribution Width 13.5 % (11.5-14.5) Platelet Count 235 x10^3/uL (140-400) Neutrophils (%) (Auto) 62 % (31-73) Lymphocytes (%) (Auto) 27 % (24-48) Monocytes (%) (Auto) 6 % (0-9) Eosinophils (%) (Auto) 5 % (0-3) Basophils (%) (Auto) 1 % (0-3) Neutrophils # (Auto) 4.0 x10^3/uL (1.8-7.7) Lymphocytes # (Auto) 1.7 x10^3/uL (1.0-4.8) Monocytes # (Auto) 0.4 x10^3/uL (0.0-1.1) Eosinophils # (Auto) 0.3 x10^3/uL (0.0-0.7) Basophils # (Auto) 0.0 x10^3/uL (0.0-0.2) Sodium Level 142 mmol/L (136-145) Potassium Level 3.8 mmol/L (3.5-5.1) Chloride Level 103 mmol/L (98-107) Carbon Dioxide Level 29 mmol/L (21-32) Anion Gap 10 (6-14) Blood Urea Nitrogen 9 mg/dL (8-26) Creatinine 0.8 mg/dL (0.7-1.3) Estimated GFR (Cockcroft-Gault) 100.4 Glucose Level 167 mg/dL (70-99) Calcium Level 8.7 mg/dL (8.5-10.1) Laboratory Tests Test 10/05/19 11:41 10/05/19 16:29 10/06/19 01:02 10/06/19 07:43 Glucose (Fingerstick) 148 mg/dL (70-99) 124 mg/dL (70-99) 189 mg/dL (70-99) 136 mg/dL (70-99) Test 10/06/19 09:20 White Blood Count 6.5 x10^3/uL (4.0-11.0) Red Blood Count 5.00 x10^6/uL (4.30-5.70) Hemoglobin 14.2 g/dL (13.0-17.5) Hematocrit 41.4 % (39.0-53.0) Mean Corpuscular Volume 83 fL (79-100) Mean Corpuscular Hemoglobin 29 pg (25-35) Mean Corpuscular Hemoglobin Concent 34 g/dL (31-37) Red Cell Distribution Width 13.5 % (11.5-14.5) Platelet Count 235 x10^3/uL (140-400) Neutrophils (%) (Auto) 62 % (31-73) Lymphocytes (%) (Auto) 27 % (24-48) Monocytes (%) (Auto) 6 % (0-9) Eosinophils (%) (Auto) 5 % (0-3) Basophils (%) (Auto) 1 % (0-3) Neutrophils # (Auto) 4.0 x10^3/uL (1.8-7.7) Lymphocytes # (Auto) 1.7 x10^3/uL (1.0-4.8) Monocytes # (Auto) 0.4 x10^3/uL (0.0-1.1) Eosinophils # (Auto) 0.3 x10^3/uL (0.0-0.7) Basophils # (Auto) 0.0 x10^3/uL (0.0-0.2) Sodium Level 142 mmol/L (136-145) Potassium Level 3.8 mmol/L (3.5-5.1) Chloride Level 103 mmol/L (98-107) Carbon Dioxide Level 29 mmol/L (21-32) Anion Gap 10 (6-14) Blood Urea Nitrogen 9 mg/dL (8-26) Creatinine 0.8 mg/dL (0.7-1.3) Estimated GFR (Cockcroft-Gault) 100.4 Glucose Level 167 mg/dL (70-99) Calcium Level 8.7 mg/dL (8.5-10.1) Microbiology 10/02/19 Blood Culture - Preliminary, Resulted NO GROWTH AFTER 3 DAYS Medications Current Medications Sodium Chloride 1,000 ml @ 1,000 mls/hr 1X ONCE IV Last administered on 10/02/19at 13:17; Start 10/02/19 at 12:45; Stop 10/02/19 at 13:44; Status DC Meclizine HCl (Antivert) 12.5 mg 1X ONCE PO Last administered on 10/02/19at 13:26; Start 10/02/19 at 12:45; Stop 10/02/19 at 12:47; Status DC Ceftriaxone Sodium (Rocephin) 1 gm 1X ONCE IVP Last administered on 10/02/19at 15:10; Start 10/02/19 at 14:45; Stop 10/02/19 at 14:46; Status DC Azithromycin 250 ml @ 250 mls/hr 1X ONCE IV Last administered on 10/02/19at 15:00; Start 10/02/19 at 14:45; Stop 10/02/19 at 15:44; Status DC Ondansetron HCl (Zofran) 4 mg 1X ONCE IVP Last administered on 10/02/19at 15:13; Start 10/02/19 at 15:15; Stop 10/02/19 at 15:16; Status DC Ondansetron HCl (Zofran) 4 mg PRN Q8HRS PRN IV NAUSEA/VOMITING; Start 10/02/19 at 15:30; Stop 10/02/19 at 22:06; Status DC Fentanyl Citrate (Fentanyl 2ml Vial) 50 mcg PRN Q1HR PRN IV PAIN; Start 09/05 04/23 at 15:30; Stop 10/03/19 at 15:29; Status DC Acetaminophen (Tylenol) 650 mg PRN Q4HRS PRN PO FEVER; Start 10/02/19 at 15:30; Stop 10/02/19 at 22:05; Status DC Insulin Human Lispro (HumaLOG) 0-5 UNITS TIDWMEALS SQ Last administered on 10/04/19at 11:47; Start 10/02/19 at 17:00 Dextrose (Dextrose 50%-Water Syringe) 12.5 gm PRN Q15MIN PRN IV SEE COMMENTS; Start 10/02/19 at 15:30 Amlodipine Besylate (Norvasc) 10 mg DAILY PO Last administered on 10/06/19at 08:56; Start 10/03/19 at 09:00 Aspirin (Ecotrin) 81 mg DAILY PO Last administered on 10/06/19 08:55; Start 10/03/19 at 09:00 Atorvastatin Calcium (Lipitor) 10 mg HS PO Last administered on 10/05/19 20:57; Start 10/02/19 at 21:00 Cyclobenzaprine HCl (Flexeril) 10 mg TID PO Last administered on 10/06/19 08:5 6; Start 10/02/19 at 21:00 Pantoprazole Sodium (Protonix) 40 mg DAILY PO Last administered on 10/06/19 08:55; Start 10/03/19 at 09:00 Diclofenac Sodium (Voltaren) 25 mg BID PO ; Start 10/02/19 at 21:00; Stop 10/02/19 at 19:47; Status DC Fenofibrate (Lofibra) 134 mg DAILY PO Last administered on 10/06/19 08:56; Start 10/03/19 at 09:00 Glipizide (Glucotrol) 10 mg BIDBFRMEAL PO Last administered on 10/06/19 08:55; Start 10/03/19 at 07:30 Ibuprofen (Motrin) 800 mg PRN TID PRN PO INFLAMMATION; Start 10/02/19 at 20:00 Lisinopril (Prinivil) 40 mg DAILY PO Last administered on 10/06/19 08:56; Start 10/03/19 at 09:00 Metformin HCl (Glucophage Xr) 1,000 mg DAILYWBKFT PO Last administered on 10/06/19 08:55; Start 10/03/19 at 08:00 Ondansetron HCl (Zofran Odt) 4 mg PRN Q8HRS PRN PO NAUSEA/VOMITING; Start 10/02/19 at 20:00 Diclofenac Sodium (Voltaren) 50 mg BID PO Last administered on 10/06/19 08:55; Start 10/02/19 at 21:00 Hydrochlorothiazide (Hydrodiuril) 25 mg DAILY PO Last administered on 10/06/19 08:55; Start 10/03/19 at 09:00 Sodium Chloride (Normal Saline Flush) 3 ml QSHIFT PRN IV AFTER MEDS AND BLOOD DRAWS; Start 10/02/19 at 22:00 Sodium Chloride 1,000 ml @ 100 mls/hr Q10H IV Last administered on 10/06/19 05:30; Start 10/02/19 at 22:30 Ondansetron HCl (Zofran) 4 mg PRN Q4HRS PRN IV NAUSEA/VOMITING 1ST CHOICE Last administered on 10/05/19 11:42; Start 10/02/19 at 22:00 Acetaminophen (Tylenol) 650 mg PRN Q4HRS PRN PO TEMP OVER 100.4F OR MILD PAIN Last administered on 10/05/19 08:37; Start 10/02/19 at 22:00 Acetaminophen (Tylenol Supp) 650 mg PRN Q4HRS PRN OR TEMP OVER 100.4F OR MILD PAIN; Start 10/02/19 at 22:00 Clonidine HCl (Catapres) 0.1 mg PRN Q6HRS PRN PO SBP>160 OR DBP>90; Start 10/02/19 at 22:00 Docusate Sodium (Colace) 100 mg PRN BID PRN PO CONSTIPATION 1ST CHOICE; Start 10/02/19 at 22:00 Albuterol/ Ipratropium (Duoneb) 3 ml Q4HRS W/A NEB Last administered on 10/06/19 07:34; Start 10/02/19 at 22:00 Guaifenesin (Robitussin) 200 mg PRN Q4HRS PRN PO COUGH; Start 10/02/19 at 22:00 Enoxaparin Sodium (Lovenox 40mg Syringe) 40 mg Q24H SQ Last administered on 10/05/19 20:57; Start 10/02/19 at 23:00 Ceftriaxone Sodium (Rocephin) 1 gm Q24H IVP Last administered on 10/06/19 08:54; Start 10/03/19 at 09:00 Azithromycin 250 ml @ 250 mls/hr DAILY08 IV ; Start 10/03/19 at 08:00; Status UNV Azithromycin 500 mg/Sodium Chloride 250 ml @ 250 mls/hr Q24H IV Last administered on 10/06/19 08:54; Start 10/03/19 at 09:00 Neomycin/ Polymyxin/ Hydrocortisone (Cortisporin Otic) 2 drop BID ONCE Last administered on 10/04/19 13:37; Start 10/04/19 at 13:00; Stop 10/04/19 at 13:01; Status DC Lactobacillus Rhamnosus (Culturelle) 1 cap BID PO Last administered on 10/06/19at 08:55; Start 10/04/19 at 21:00 Meclizine HCl (Antivert) 25 mg TID PO Last administered on 10/06/19at 08:56; Start 10/05/19 at 14:00 Potassium Chloride (Klor-Con) 40 meq 1X ONCE PO Last administered on 10/05/19at 14:21; Start 10/05/19 at 14:00; Stop 10/05/19 at 14:01; Status DC Active Scripts Active Zofran (Ondansetron Hcl) 4 Mg Tablet 1 Tab PO PRN Q6-8HRS Diclofenac Potassium 50 Mg Tablet 1 Tab PO BID Ultram (Tramadol Hcl) 50 Mg Tablet 1 Tab PO Q6HRS PRN Reported Glipizide 10 Mg Tablet 1 Tab PO BID Metformin Hcl Er (Metformin Hcl) 1,000 Mg Tab.er.24 1,000 Mg PO DAILYWBKFT Lisinopril-Hctz 20-12.5 Mg Tab (Lisinopril/Hydrochlorothiazide) 1 Each Tablet 2 Tab PO DAILY Pantoprazole Sodium (Pantoprazole Sodium) 40 Mg Tablet. 1 Tab PO DAILY Atorvastatin Calcium 10 Mg Tablet 1 Tab PO HS Amlodipine Besylate 10 Mg Tablet 10 Mg PO DAILY Fenofibrate (Fenofibrate,Micronized) 200 Mg Capsule 1 Cap PO DAILY Aspir 81 (Aspirin) 81 Mg Tablet. 1 Tab PO DAILY Vitals/I & O Vital Sign - Last 24 Hours 10/05/19 10/05/19 10/05/19 10/05/19 11:32 15:00 16:11 19:00 Temp 98.1 98.0 98.1 98.0 Pulse 92 86 Resp 18 18 B/P (MAP) 117/75 (89) 130/79 (96) Pulse Ox 95 93 95 94 O2 Delivery Room Air Room Air Room Air Room Air 10/05/19 10/05/19 10/05/19 10/06/19 19:51 20:00 23:00 03:00 Temp 98.2 97.0 98.2 97.0 Pulse 85 78 Resp 18 18 B/P (MAP) 121/70 (87) 108/72 (84) Pulse Ox 93 95 97 O2 Delivery Room Air Room Air Room Air Room Air 10/06/19 10/06/19 10/06/19 10/06/19 07:00 07:36 07:55 08:56 Temp 97.9 97.9 Pulse 83 83 Resp 17 B/P (MAP) 133/84 (100) 133/84 Pulse Ox 95 95 O2 Delivery Room Air Room Air Room Air 10/06/19 08:56 Pulse 83 B/P (MAP) 133/84 Intake and Output 0 10/05/19 10/05/19 10/06/19 15:00 23:00 07:00 Intake Total 720 ml 1360 ml 1500 ml Output Total 330 ml Balance 720 ml 1030 ml [address] HEAD WO CONTRAST Clinical indications: Vertigo. Patient has cochlear implant. COMPARISON: None available. Technique: Noncontrast axial cross sectional scanning of the head was performed. PQRS compliance Statement One or more of the following individualized dose reduction techniques were utilized for this study: 1. Automated exposure control 2. Adjustment of the mA and/or kV according to patient size 3. Use of iterative reconstruction technique Findings: There is metallic artifact involving the left side of the brain related to a cochlear implant device. This does obscure portions of the left side of the brain. Given this, no acute intracranial hemorrhage or midline shift or mass-effect or hydrocephalus or extra-axial fluid collection is seen. There is mild bilateral periventricular and subcortical white matter hypodensity which may be secondary to chronic small vessel ischemic disease in this age group. This could be seen with a demyelinating process such as multiple sclerosis if there is a history of such. No skull fracture or pneumocephalus is seen. No opacification of the mastoid sinuses or the middle ear cavities or the paranasal sinuses is seen. The maxillary sinuses are not completely seen in this study. Impression: No acute intracranial abnormality is seen within the limits of the study. Mild bilateral periventricular and subcortical white matter hypodensity which may be secondary to chronic small vessel ischemic disease in this age group. This could be seen with a demyelinating process such as multiple sclerosis if there is a history of such. BOLIVAR RICHARDS MD Oct 06, 2019 11:32
--- NOTE | 2019-10-06 12:15 | NUR ---
AURE following. Discussed with RN, pt can discharge home with [facility]. AURE met with pt together with [facility] Mcdaniels RN to discuss DNR. After further discussion pt is not wanting to be a DNR, is wanting to not be kept alive by machines. [facility] is going to meet with pt at home to discuss advanced directives in detail and ensure pt understands fully and can make informed decisions. Pt discharging home today with home health. SW awaiting home health orders, clinicals have been faxed to [facility]. RN notified.
--- NOTE | 2019-10-06 13:18 | DS ---
DATE OF DISCHARGE: 10/06/2019 ADMISSION DIAGNOSIS: Vertigo and pneumonia. DISCHARGE DIAGNOSES: 1. Resolving vertigo. 2. Resolving pneumonia. HOSPITAL COURSE: The patient is a pleasant middle-aged male, who presented with vertigo and pneumonia. He was admitted. We gave him IV antibiotics and fluids and did some physical therapy and occupational therapy. I then consulted Neurology, gave him Antivert. Over the next few days, he returned to his baseline. PHYSICAL EXAMINATION: GENERAL: This morning, I saw him and examined him. He is doing great, he wants to go home. HEART: Heart tones were normal. LUNGS: Clear. ABDOMEN: Soft. EXTREMITIES: No edema. We plan to discharge home. DISPOSITION: Home. ACTIVITY: As tolerated. DIET: Low sodium. MEDICATIONS: Please see the MRAD. TOTAL TIME: 32 minutes. COREY TERAN DO DR: HALEIGH/andrew JOB#: [id number] / [id number]
--- NOTE | 2019-10-06 14:22 | SNU/HH DC ---
DISCHARGE WITH HOME HEALTH DISCHARGE INFORMATION: Final Diagnosis: Problems Medical Problems: (1) Bilateral pulmonary infiltrates on CXR Status: Acute (2) Dizziness Status: Acute Condition on Discharge: Stable CODE STATUS: Code Status: Full HOME HEALTH: Face to Face: I certify this patient is under my care and that I, or a nurse practitioner or physician's executive marketing assistant working with me, had a face to face encounter that meets the physician face to face encounter requirements with this patient on []. Medical Complications: Other (intractable vertigo) RN For Eval/Treatment: Yes Physical Therapy For: Evalulation/Treatment Occupational Therapy For: Evaluation/Treatment Home Health Aide For: Self-care PIERCING ARTIST For: Community Resources Pt Meets Homebound Status: Poor coordination w/ amb. POST DISCHARGE ORDERS: Activity Instructions for Disc: Activity as tolerated Weight Bearing Status after Di: Full weight bearing, As tolerated DIET AFTER DISCHARGE: Cardiac CHECKS AFTER DISCHARGE: Checks after discharge: Check blood press - daily FOLLOW-UP: Follow up with: Dr. Kesha Ardon 2-3 weeks if sysmptoms persist Follow Up With: Primary care in 1-2 weeks TREATMENT/EQUIPMENT ORDERS: Adaptive Equipment Issued: None CERTIFICATION STATEMENT: Certification Statement: Certification Statement: Based on the above finding, I certify that this patient is confined to the home and needs intermittent assisted care, physical therapy and/or speech therapy, or continues to need occupational therapy.~ This patient is under my care, and I have initiated the establishment of the plan of care.~ This patient will be followed by myself or a community physician who will periodically review the plan of care. Home Meds Active Scripts Ondansetron Hcl (ZOFRAN) 4 Mg Tablet, 1 TAB PO PRN Q6-8HRS for nausea, #12 TAB Prov:FLORENCIO CENTENO MD 07/24/19 Diclofenac Potassium (DICLOFENAC POTASSIUM) 50 Mg Tablet, 1 TAB PO BID, #20 TAB 0 Refills Prov:DOMINGA MITCHELL APRN 09/05/18 Tramadol Hcl (ULTRAM) 50 Mg Tablet, 1 TAB PO Q6HRS PRN for PAIN, #20 TAB Prov:ROSA ISELA MCDONALD DO 08/14/16 Reported Medications Glipizide (GLIPIZIDE) 10 Mg Tablet, 1 TAB PO BID, #60 TAB 5 Refills 12/09/16 Metformin Hcl (METFORMIN HCL ER) 1,000 Mg Tab.er.24, 1000 MG PO DAILYWBKFT for ANTI-DIABETIC, TAB 0 Refills 12/09/16 Lisinopril/Hydrochlorothiazide (LISINOPRIL-HCTZ 20-12.5 MG TAB) 1 Each Tablet, 2 TAB PO DAILY, #90 TAB 3 Refills 05/28/15 Pantoprazole Sodium (PANTOPRAZOLE SODIUM ) 40 Mg Tablet.dr, 1 TAB PO DAILY, #30 TAB 3 Refills 05/28/15 Atorvastatin Calcium (ATORVASTATIN CALCIUM) 10 Mg Tablet, 1 TAB PO HS, #30 TAB 5 Refills 05/28/15 Amlodipine Besylate (AMLODIPINE BESYLATE) 10 Mg Tablet, 10 MG PO DAILY, TAB 05/28/15 Fenofibrate,Micronized (FENOFIBRATE) 200 Mg Capsule, 1 CAP PO DAILY, #30 CAP 5 Refills 05/28/15 Aspirin (ASPIR 81) 81 Mg Tablet.dr, 1 TAB PO DAILY, #30 TAB 5 Refills 05/28/15 Discontinued Reported Medications Ibuprofen (IBUPROFEN) 800 Mg Tablet, 1 TAB PO TID PRN for PAIN, #90 TAB 1 Refill 05/28/15 Discontinued Scripts Acetaminophen With Codeine (TYLENOL WITH CODEINE #3 TABLET) 1 Each Tablet, 1 TAB PO PRN Q6HRS PRN for PAIN, #10 TAB Prov:FLORENCIO CENTENO MD 07/24/19 Cyclobenzaprine Hcl (CYCLOBENZAPRINE HCL) 10 Mg Tablet, 1 TAB PO TID, #30 TAB Prov:DOMINGA MITCHELL APRN 09/05/18 COREY TERAN III DO Oct 06, 2019 14:22
[2019-10-06 15:00] VITALS: BP 121/78
--- NOTE | 2019-10-06 15:52 | NUR ---
Discharge Note: Patient was discharged home with home health. Patients IV was discontinued without any complications per DELFINO. Patients mother at the bedside during discharge education. Patients mother Shaylee helped with communicating with patient. Patient received discharge summary/instructions, follow-ups, prescription, referral for ENT and educational material. Patient and mother did not have any further questions or concerns. Patient was taken down to the main entrance via wheelchair with all personal belongings accompanied by DELFINO Carrillo, where his mother was waiting for him to take him home.
== END 2019-10-06 15:00 | disposition home health service (06) | DRG 195 ==
LOC: ER 11:45 → 5 SOUTH 15:17
PROVIDERS: ADMIT Family Medicine; ATTEND Family Medicine
DX: J18.9 Pneumonia, unspecified organism (principal); E11.65 Type 2 diabetes mellitus with hyperglycemia; E78.00 Pure hypercholesterolemia, unspecified; H81.20 Vestibular neuronitis, unspecified ear; H81.399 Other peripheral vertigo, unspecified ear; H90.5 Unspecified sensorineural hearing loss; I10 Essential (primary) hypertension; Z82.49 Family history of ischemic heart disease and other diseases of the circulatory system; Z90.49 Acquired absence of other specified parts of digestive tract; Z88.8 Allergy status to other drugs, medicaments and biological substances
CPT/HCPCS: 36415; 70450; 71045; 74018; 80048; 80053; 80307; 81001; 82553; 82962; 83735; 83880; 84443; 84484; 85025; 87040; 93005; 94640; 94760; 96361; 96365; 96375; 99285; J0456; J0696; J1650; J1815; J2405; J7030; J7050; 97116; 97530; G0378; J8597

== ENCOUNTER 2019-10-13 21:45 | Inpatient (IN) | payer BC ==
[~2019-10-13] VITALS: Ht 180.3 cm; Wt 71.8 kg
[2019-10-13 22:59] LABS: BASO % 0 % (0-3); EOS # 0.2 x10^3/uL (0.0-0.7); EOS % 1 % (0-3); HEMATOCRIT 41.8 % (39.0-53.0); HEMOGLOBIN 14.2 g/dL (13.0-17.5); LYMPH # 1.1 x10^3/uL (1.0-4.8); LYMPH % 10 % (24-48); MEAN CORPUSCULAR HEMOGLOBIN 28 pg (25-35); MEAN CORPUSCULAR HGB CONC 34 g/dL (31-37); MEAN CORPUSCULAR VOLUME 82 fL (79-100); MONO # 0.5 x10^3/uL (0.0-1.1); MONO % 4 % (0-9); NEUT # 9.4 x10^3/uL (1.8-7.7); NEUT % 84 % (31-73); PLATELET COUNT 244 x10^3/uL (140-400); RED BLOOD COUNT 5.08 x10^6/uL (4.30-5.70); RED CELL DISTRIBUTION WIDTH 13.3 % (11.5-14.5); WHITE BLOOD COUNT 11.2 x10^3/uL (4.0-11.0)
--- NOTE | 2019-10-13 23:02 | PHYS DOC ---
Past Medical History Past Medical History: Diabetes-Type II, High Cholesterol, Hypertension, Other Additional Past Medical Histor: HEARING IMPAIRED, VERTIGO Past Surgical History: Appendectomy, Cholecystectomy, Tonsillectomy, Other Additional Past Surgical Histo: cochlear implant L ear Smoking Status: Never Smoker Alcohol Use: None Drug Use: None Adult General Chief Complaint Chief Complaint: DIZZY/LIGHT HEADED HPI HPI Patient is a 54 year old male with history of hypertension, dyslipidemia, diabetes mellitus, impaired hearing, vertigo who presents with complaint of dizziness and vomiting. Patient was admitted from September to October for miki use of dizziness and was seen by his primary care physician yesterday without problem and has appointment with ENT doctor next week. Patient has sudden onset of dizziness this afternoon and had a long episode of vomiting that lasted about couple hours. Patient denies focal neuro deficit, fever and chills, head injury. Patient states the dizziness getting worse with movement of his head. Patient is deaf and history was taken with sign language with help of patient's . Review of Systems Review of Systems Constitutional: Denies fever or chills [] Eyes: Denies change in visual acuity, redness, or eye pain [] HENT: Denies nasal congestion or sore throat [] Respiratory: Denies cough or shortness of breath [] Cardiovascular: No additional information not addressed in HPI [] GI: Reports abdominal pain, nausea, vomiting, denies bloody stools or diarrhea [] : Denies dysuria or hematuria [] Musculoskeletal: Denies back pain or joint pain [] Integument: Denies rash or skin lesions [] Neurologic: Denies headache, focal weakness or sensory changes [] Endocrine: Denies polyuria or polydipsia [] All other systems were reviewed and found to be within normal limits, except as documented in this note. Allergies Allergies Allergies Coded Allergies Type Severity Reaction Last Updated Verified hydrocodone Adverse Reaction Intermediate confusion 12/10/16 Yes Physical Exam Physical Exam Constitutional: Well developed, well nourished, mild distress, non-toxic appearance. [] HENT: Normocephalic, atraumatic, moist oral mucosa. Eyes: PERRLA, EOMI, conjunctiva normal, no discharge. [] Neck: Normal range of motion, no tenderness, supple, no stridor. [] Cardiovascular:Heart rate regular rhythm, no murmur [] Lungs & Thorax: Bilateral breath sounds clear to auscultation [] Abdomen: Bowel sounds normal, soft, no tenderness, no masses, no pulsatile masses. [] Skin: Warm, dry, no erythema, no rash. [] Back: No tenderness, no CVA tenderness. [] Extremities: No tenderness, no cyanosis, no clubbing, ROM intact, no edema. [] Neurologic: Alert and oriented X 3, no focal deficits noted. [] Psychologic: Affect normal, judgement normal, mood normal. [] Current Patient Data Vital Signs Vital Signs Date Time Temp Pulse Resp B/P (MAP) Pulse Ox O2 Delivery O2 Flow Rate FiO2 10/13/19 22:30 98.0 94 24 157/78 (104) 98 Room Air 98.0 Lab Values Laboratory Tests Test 10/13/19 22:51 10/13/19 22:52 Glucose (Fingerstick) 61 mg/dL (70-99) L White Blood Count 11.2 x10^3/uL (4.0-11.0) H Red Blood Count 5.08 x10^6/uL (4.30-5.70) Hemoglobin 14.2 g/dL (13.0-17.5) Hematocrit 41.8 % (39.0-53.0) Mean Corpuscular Volume 82 fL (79-100) Mean Corpuscular Hemoglobin 28 pg (25-35) Mean Corpuscular Hemoglobin Concent 34 g/dL (31-37) Red Cell Distribution Width 13.3 % (11.5-14.5) Platelet Count 244 x10^3/uL (140-400) Neutrophils (%) (Auto) 84 % (31-73) H Lymphocytes (%) (Auto) 10 % (24-48) L Monocytes (%) (Auto) 4 % (0-9) Eosinophils (%) (Auto) 1 % (0-3) Basophils (%) (Auto) 0 % (0-3) Neutrophils # (Auto) 9.4 x10^3/uL (1.8-7.7) H Lymphocytes # (Auto) 1.1 x10^3/uL (1.0-4.8) Monocytes # (Auto) 0.5 x10^3/uL (0.0-1.1) Eosinophils # (Auto) 0.2 x10^3/uL (0.0-0.7) Basophils # (Auto) 0.0 x10^3/uL (0.0-0.2) Prothrombin Time 12.3 SEC (11.7-14.0) Prothrombin Time INR 1.0 (0.8-1.1) Sodium Level 137 mmol/L (136-145) Potassium Level 3.5 mmol/L (3.5-5.1) Chloride Level 98 mmol/L (98-107) Carbon Dioxide Level 30 mmol/L (21-32) Anion Gap 9 (6-14) Blood Urea Nitrogen 16 mg/dL (8-26) Creatinine 0.7 mg/dL (0.7-1.3) Estimated GFR (Cockcroft-Gault) 117.1 BUN/Creatinine Ratio 23 (6-20) H Glucose Level 235 mg/dL (70-99) H Calcium Level 9.2 mg/dL (8.5-10.1) Magnesium Level 1.4 mg/dL (1.8-2.4) L Total Bilirubin 0.5 mg/dL (0.2-1.0) Aspartate Amino Transferase (AST) 19 U/L (15-37) Alanine Aminotransferase (ALT) 40 U/L (16-63) Alkaline Phosphatase 107 U/L (46-116) Creatine Kinase 92 U/L (39-308) Troponin I Quantitative < 0.017 ng/mL (0.000-0.055) TZ-Ift-A-Type Natriuretic Peptide 43 pg/mL (0-124) Total Protein 7.7 g/dL (6.4-8.2) Albumin 3.8 g/dL (3.4-5.0) Albumin/Globulin Ratio 1.0 (1.0-1.7) Laboratory Tests 10/13/19 22:52 Laboratory Tests 10/13/19 22:52 EKG EKG EKG interpreted by me. EKG at 2228 showed normal sinus rhythm rate of 91, normal MS and QT intervals, left atrial abnormality, no acute ST and T wave elevation. Radiology/Procedures Radiology/Procedures [facility] [address] [place] [address] IMAGING REPORT Signed PATIENT: JULIÁN HEATON ACCOUNT: [id number] : 1965 LOCATION: [address] [place] [address] AGE: 54 SEX: M EXAM STATUS: ADM IN ORD. PHYSICIAN: FLORENCIO CENTENO MD REASON: Dizziness PROCEDURE: CT HEAD WO CONTRAST EXAM: CT Head without IV contrast CLINICAL HISTORY: Dizziness Comparison: 10/05/2019 TECHNIQUE: Routine CT of the head without contrast. Soft tissues and bone windows were reviewed. PQRS compliance statement - One or more of the following individualized dose reduction techniques were utilized for this study: 1. Automated exposure control 2. Adjustment of the mA and/or kV according to patient size 3. Use of iterative reconstruction technique FINDINGS: Metallic density at the left temporal region at the level of prior partial mastoidectomy extending cephalad results in severe streak artifact limiting evaluation. Within these constraints: There is no evidence of hemorrhage, mass or extra-axial fluid collection. Castro-white differentiation is maintained with no evidence of edema. Subcortical, periventricular and deep white matter hypoattenuation likely changes of chronic small vessel disease. There is no mass effect or shift of the intracranial structures. The ventricles, basilar cisterns and cortical sulci are normal in size and configuration for the patients stated age. The cerebellum and brainstem are unremarkable. The calvarium demonstrates no evidence of fracture or focal lesion. There is normal aeration of the visualized paranasal sinuses and mastoid air cells. Changes of partial left mastoidectomy are seen. The visualized portions of the orbits are normal. Atherosclerotic calcifications of the intracranial internal carotid and vertebral arteries is seen. IMPRESSION: 1. No evidence for acute intracranial process. 2. White matter changes likely chronic small vessel disease. 3. Of note, streak artifact in the left temporal region significantly limits evaluation. Electronically signed by: Toan Nicholas MD (10/13/2019 11:48 PM) [id number] DICTATED and SIGNED BY: TOAN NICHOLAS MD DATE: 10/13/19 2348 Course & Med Decision Making Course & Med Decision Making Pertinent Labs and Imaging studies reviewed. (See chart for details) Evaluation of patient ER showed 54-year-old male patient with history of impaired hearing and recent hospitalization with dizziness presented to ER with complaining of dizziness and nausea and vomiting. Patient had no vomiting in ER treated with meclizine and Zofran with improvement of his condition. Labs showed magnesium of 1.4 and patient treated with IV magnesium. CT head and labs otherwise was unremarkable except for blood sugar of 235. Patient requiring admission for further evaluation and treatment. Discussed with Dr. Gillis who is in agreement with admission. Discussed findings and plan with patient and family, who acknowledge understanding and agreement. Dragon Disclaimer Dragon Disclaimer This electronic medical record was generated, in whole or in part, using a voice recognition dictation system. Departure Departure Impression: Primary Impression: Dizziness Additional Impressions: Nausea and vomiting Uncontrolled diabetes mellitus Impaired hearing Hypomagnesemia Disposition: ADMITTED INPATIENT (At 2300) Admitting Physician: ALYSSA (Dr. Gillis accepted admission) Condition: IMPROVED Referrals: GARTH RIZVI MD (PCP) Problem Qualifiers Additional Impressions: Nausea and vomiting Vomiting type: unspecified Vomiting Intractability: non-intractable Qualified Codes: R11.2 - Nausea with vomiting, unspecified Uncontrolled diabetes mellitus Diabetes mellitus type: other specified (including YOANA) Glycemic state: with hyperglycemia Qualified Codes: E13.65 - Other specified diabetes mellitus with hyperglycemia Impaired hearing Hearing loss type: unspecified Laterality: unspecified laterality Qualified Codes: H91.90 - Unspecified hearing loss, unspecified ear FLORENCIO CENTENO MD Oct 13, 2019 23:02
--- NOTE | 2019-10-13 23:06 | EKG ---
[facility] [address] [place] [address] Test Date: 2019-10-13 Test Time: 22:28:11 Pat Name: JULIÁN HEATON Department: Room: Gender: M Checker Loader: : 1965 Requested By: FLORENCIO CENTENO Order Number: [id number] Reading MD: Measurements Intervals [place] Rate: 91 P: 87 NM: 188 QRS: 29 QRSD: 94 T: 29 QT: 368 QTc: 454 Interpretive Statements SINUS RHYTHM LEFT ATRIAL ABNORMALITY ABNORMAL ECG RI6.01 No previous ECG available for comparison
[2019-10-13 23:08] LABS: CALCIUM 9.2 mg/dL (8.5-10.1); CREATININE 0.7 mg/dL (0.7-1.3); GFR 117.1; POTASSIUM 3.5 mmol/L (3.5-5.1); PROTHROMBIN TIME PATIENT 12.3 SEC (11.7-14.0)
[2019-10-13 23:14] LABS: ALBUMIN 3.8 g/dL (3.4-5.0); MAGNESIUM 1.4 mg/dL (1.8-2.4); TOTAL BILIRUBIN 0.5 mg/dL (0.2-1.0); TOTAL PROTEIN 7.7 g/dL (6.4-8.2)
[2019-10-13] MEDS ORDERED: MECLIZINE HCL 12.5 MG TABLET. PO ONE (23:30)
[2019-10-13] MEDS ORDERED: ONDANSETRON PF 4 MG/2 ML VIAL. IVP ONE (23:30)
--- NOTE | 2019-10-13 23:51 | RAD ---
EXAM: CT Head without IV contrast CLINICAL HISTORY: Dizziness Comparison: 10/05/2019 TECHNIQUE: Routine CT of the head without contrast. Soft tissues and bone windows were reviewed. PQRS compliance statement - One or more of the following individualized dose reduction techniques were utilized for this study: 1. Automated exposure control 2. Adjustment of the mA and/or kV according to patient size 3. Use of iterative reconstruction technique FINDINGS: Metallic density at the left temporal region at the level of prior partial mastoidectomy extending cephalad results in severe streak artifact limiting evaluation. Within these constraints: There is no evidence of hemorrhage, mass or extra-axial fluid collection. Castro-white differentiation is maintained with no evidence of edema. Subcortical, periventricular and deep white matter hypoattenuation likely changes of chronic small vessel disease. There is no mass effect or shift of the intracranial structures. The ventricles, basilar cisterns and cortical sulci are normal in size and configuration for the patients stated age. The cerebellum and brainstem are unremarkable. The calvarium demonstrates no evidence of fracture or focal lesion. There is normal aeration of the visualized paranasal sinuses and mastoid air cells. Changes of partial left mastoidectomy are seen. The visualized portions of the orbits are normal. Atherosclerotic calcifications of the intracranial internal carotid and vertebral arteries is seen. IMPRESSION: 1. No evidence for acute intracranial process. 2. White matter changes likely chronic small vessel disease. 3. Of note, streak artifact in the left temporal region significantly limits evaluation. Electronically signed by: Toan Morris MD (10/13/2019 11:48 PM) [id number]
[2019-10-14] VITALS (7 sets, daily range): BP systolic 102–153; BP diastolic 56–78
[2019-10-14] MEDS ORDERED: MAGNESIUM SULFATE 2GM 50 ML IV ONE
[2019-10-14] MEDS ORDERED: ONDANSETRON PF 4 MG/2 ML VIAL. IV PRN
[2019-10-14 00:12] LABS: BILIRUBIN,URINE NEGATIVE (NEG); CLARITY,URINE CLEAR; COLOR,URINE YELLOW; NITRITE,URINE NEGATIVE (NEG); PROTEIN,URINE 30 mg/dL (NEG-TRACE); UROBILINOGEN,URINE 0.2 mg/dL (0.2 mg/dL)
--- NOTE | 2019-10-14 00:13 | RAD ---
EXAM: AP View of the chest DATE: 10/13/2019 10:48 PM INDICATION: Dizziness COMPARISON: 10/02/2019 FINDINGS/ IMPRESSION: The heart is not enlarged. Mediastinal and hilar contours are normal. Bilateral interstitial prominence is grossly unchanged accounting for differences in lung volumes. Left lung base calcified granuloma. No pleural effusion or pneumothorax. Electronically signed by: Toan Morris MD (10/14/2019 12:10 AM) [id number]
--- NOTE | 2019-10-14 00:15 | NUR ---
PT ADMITTED TO 263 WITH DIZZINESS, N/V. APPEARS A/O, ASSESSMENT COMPLETE. ADMISSION PACKET GIVEN, EXPLAINED POC, CALL LIGHT IN PLACE WILL CONT TO MONITOR PT SAFETY AND STATUS. PMRN
[2019-10-14 00:24] LABS: BACTERIA,URINE 0 /HPF (0-FEW); RBC,URINE 0 /HPF (0-2); SQUAMOUS EPITHELIAL CELL,UR OCC /LPF; WBC,URINE OCC /HPF (0-4)
[2019-10-14] MEDS ORDERED: MECL-75 PO (08:01)
[2019-10-14 08:09] LABS: BASO # 0.1 x10^3/uL (0.0-0.2); BASO % 1 % (0-3); EOS # 0.2 x10^3/uL (0.0-0.7); EOS % 2 % (0-3); HEMATOCRIT 41.4 % (39.0-53.0); HEMOGLOBIN 14.2 g/dL (13.0-17.5); LYMPH # 2.4 x10^3/uL (1.0-4.8); LYMPH % 23 % (24-48); MEAN CORPUSCULAR HEMOGLOBIN 28 pg (25-35); MEAN CORPUSCULAR HGB CONC 34 g/dL (31-37); MEAN CORPUSCULAR VOLUME 83 fL (79-100); MONO # 0.7 x10^3/uL (0.0-1.1); MONO % 6 % (0-9); NEUT # 7.1 x10^3/uL (1.8-7.7); NEUT % 68 % (31-73); PLATELET COUNT 254 x10^3/uL (140-400); RED BLOOD COUNT 5.02 x10^6/uL (4.30-5.70); RED CELL DISTRIBUTION WIDTH 13.4 % (11.5-14.5); WHITE BLOOD COUNT 10.4 x10^3/uL (4.0-11.0)
[2019-10-14 08:22] LABS: CREATININE 0.6 mg/dL (0.7-1.3); GFR 139.9; MAGNESIUM 2.1 mg/dL (1.8-2.4); POTASSIUM 3.5 mmol/L (3.5-5.1)
[2019-10-14] MEDS ORDERED: ONDANSETRON PF 4 MG/2 ML VIAL. IVP PRN (09:00)
[2019-10-14] MEDS ORDERED: traMADol 50 MG TABLET PO PRN (09:00)
[2019-10-14] MEDS ORDERED: ONDANSETRON ODT 4 MG TAB.RAPDIS. PO PRN (09:30)
--- NOTE | 2019-10-14 09:45 | PDOC1 ---
History and Physical Date of Admission Date of Admission DATE: 10/14/19 TIME: 09:41 Source Source: Chart review, Patient History of Present Illness History of Present Illness Kyle is a 54 year old male with nauseae and diarrhea and abdominal pain. He has a history of hypertension, dyslipidemia, diabetes mellitus, impaired hearing, vertigo. Patient was admitted from September to October for because of dizziness and is waiting to see ENT, takes meclizine, Patient has sudden onset of dizziness this afternoon and had a long episode of vomiting that lasted about couple hours. Patient is deaf and history was taken with sign language with help of mom Past Medical History Cardiovascular: HTN Psych: No pertinent hx Endocrine: Diabetes Past Surgical History Past Surgical History: Cholecystectomy, Other Family History Family History: Hypertension, Family History Unknown Social History Smoke: No ALCOHOL: none Drugs: None Current Problem List Problem List Problems Medical Problems: (1) Dizziness Status: Acute (2) Hypomagnesemia Status: Acute (3) Impaired hearing Status: Acute (4) Uncontrolled diabetes mellitus Status: Acute Current Medications Current Medications Current Medications Ondansetron HCl (Zofran) 4 mg 1X ONCE IVP ; Start 10/13/19 at 23:30; Stop 10/13/19 at 23:31; Status DC Meclizine HCl (Antivert) 25 mg 1X ONCE PO ; Start 10/13/19 at 23:30; Stop 10/13/19 at 23:31; Status DC Magnesium Sulfate 50 ml @ 25 mls/hr 1X ONCE IV Last administered on 10/14/19at 00:51; Start 10/14/19 at 00:00; Stop 10/14/19 at 01:59; Status DC Ondansetron HCl (Zofran) 4 mg PRN Q8HRS PRN IV NAUSEA/VOMITING 1ST CHOICE; Start 10/14/19 at 00:00; Stop 10/14/19 at 06:00; Status DC Ondansetron HCl (Zofran) 4 mg PRN Q8HRS PRN IVP NAUSEA/VOMITING; Start 10/14/19 at 09:00 Amlodipine Besylate (Norvasc) 10 mg DAILY PO ; Start 10/14/19 at 10:00 Aspirin (Ecotrin) 81 mg DAILY PO ; Start 10/14/19 at 10:00 Atorvastatin Calcium (Lipitor) 10 mg HS PO ; Start 10/14/19 at 21:00 Pantoprazole Sodium (Protonix) 40 mg DAILY PO ; Start 10/14/19 at 10:00 Tramadol HCl (Ultram) 50 mg PRN Q6HRS PRN PO PAIN; Start 10/14/19 at 09:00 Diclofenac Sodium (Voltaren) 50 mg BID PO ; Start 10/14/19 at 10:00 Fenofibrate (Lofibra) 134 mg DAILY PO ; Start 10/14/19 at 10:00 Glipizide (Glucotrol) 10 mg BIDBFRMEAL PO ; Start 10/14/19 at 16:30 Lisinopril (Prinivil) 40 mg DAILY PO ; Start 10/14/19 at 10:00 Meclizine HCl (Antivert) 25 mg BID PO ; Start 10/14/19 at 10:00 Ondansetron HCl (Zofran Odt) 4 mg PRN Q6HRS PRN PO NAUSEA/VOMITING; Start 10/14/19 at 09:30 Hydrochlorothiazide (Hydrodiuril) 25 mg DAILY PO ; Start 10/14/19 at 10:00 Active Scripts Active Zofran (Ondansetron Hcl) 4 Mg Tablet 1 Tab PO PRN Q6-8HRS Diclofenac Potassium 50 Mg Tablet 1 Tab PO BID Ultram (Tramadol Hcl) 50 Mg Tablet 1 Tab PO Q6HRS PRN Reported Meclizine Hcl 25 Mg Tablet 25 Mg PO BID Glipizide 10 Mg Tablet 1 Tab PO BID Metformin Hcl Er (Metformin Hcl) 1,000 Mg Tab.er.24 1,000 Mg PO DAILYWBKFT Lisinopril-Hctz 20-12.5 Mg Tab (Lisinopril/Hydrochlorothiazide) 1 Each Tablet 2 Tab PO DAILY Pantoprazole Sodium (Pantoprazole Sodium) 40 Mg Tablet.dr 1 Tab PO DAILY Atorvastatin Calcium 10 Mg Tablet 1 Tab PO HS Amlodipine Besylate 10 Mg Tablet 10 Mg PO DAILY Fenofibrate (Fenofibrate,Micronized) 200 Mg Capsule 1 Cap PO DAILY Aspir 81 (Aspirin) 81 Mg Tablet.dr 1 Tab PO DAILY Allergies Allergies: Coded Allergies: hydrocodone (Verified Adverse Reaction, Intermediate, confusion , 12/10/16) ROS Review of System deaf General: YES: Fatigue, Malaise PSYCHOLOGICAL ROS: No: Anxiety, Behavioral Disorder, Concentration difficultie, Decreased libido, Depression, Disorientation, Hallucinations, Hostility, Irritablity, Memory difficulties, Mood Swings, Obsessive thoughts, Physical abuse, Sexual abuse, Sleep disturbances, Suicidal ideation, Other Eyes: No Blurry vision, No Decreased vision, No Double vision, No Dry eyes, No Excessive tearing, No Eye Pain, No Itchy Eyes, No Loss of vision, No Photophobia, No Scotomata, No Uses contacts, No Uses glasses, No Other HEENT: No: Heacaches, Visual Changes, Hearing change, Nasal congestion, Nasal discharge, Oral lesions, Sinus pain, Sore Throat, Epistaxis, Sneezing, Snoring, Tinnitus, Vertigo, Vocal changes, Other Respiratory: No: Cough, Hemoptysis, Orthopnea, Pleuritic Pain, Shortness of breath, SOB with excertion, Sputum Changes, Stridor, Tachypnea, Wheezing, Other Genitourinary: No Dysuria, No Frequency, No Incontinence, No Hematuria, No Rete ntion, No Discharge, No Urgency, No Pain, No Flank Pain, No Other, No , No , No , No , No , No , No Musculoskeletal: No Gait Disturbance, No Joint Pain, No Joint Stiffness, No Joint Swelling, No Muscle Pain, No Muscular Weakness, No Pain In:, No Swelling In:, No Other Neurological: No Behavorial Changes, No Bowel/Bladder ControlChng, No Confusion, No Dizziness, No Gait Disturbance, No Headaches, No Impaired Coord/balance, No Memory Loss, No Numbness/Tingling, No Seizures, No Speech Problems, No Tremors, No Visual Changes, No Weakness, No Other Skin: No Dry Skin, No Eczema, No Hair Changes, No Lumps, No Mole Changes, No Mottling, No Nail Changes, No Pruritus, No Rash, No Skin Lesion Changes, No Other, No Acne Physical Exam General: Alert, Cooperative, No acute distress HEENT: PERRLA, Mucous membr. moist/pink Lungs: Clear to auscultation, Normal air movement Heart: S1S2 Abdomen: Other (tender, RLQ, guarding, ) Extremities: No clubbing, No edema Skin: No significant lesion Neuro: Normal speech, Sensation intact Psych/Mental Status: Mood NL Vitals Vitals Vital Signs Date Time Temp Pulse Resp B/P (MAP) Pulse Ox O2 Delivery O2 Flow Rate FiO2 10/14/19 03:00 97.7 80 14 104/56 (72) 97 Room Air 97.7 Labs Labs Laboratory Tests Test 10/13/19 22:51 10/13/19 22:52 10/13/19 23:43 10/13/19 23:56 Glucose (Fingerstick) 61 mg/dL (70-99) 250 mg/dL (70-99) White Blood Count 11.2 x10^3/uL (4.0-11.0) Red Blood Count 5.08 x10^6/uL (4.30-5.70) Hemoglobin 14.2 g/dL (13.0-17.5) Hematocrit 41.8 % (39.0-53.0) Mean Corpuscular Volume 82 fL (79-100) Mean Corpuscular Hemoglobin 28 pg (25-35) Mean Corpuscular Hemoglobin Concent 34 g/dL (31-37) Red Cell Distribution Width 13.3 % (11.5-14.5) Platelet Count 244 x10^3/uL (140-400) Neutrophils (%) (Auto) 84 % (31-73) Lymphocytes (%) (Auto) 10 % (24-48) Monocytes (%) (Auto) 4 % (0-9) Eosinophils (%) (Auto) 1 % (0-3) Basophils (%) (Auto) 0 % (0-3) Neutrophils # (Auto) 9.4 x10^3/uL (1.8-7.7) Lymphocytes # (Auto) 1.1 x10^3/uL (1.0-4.8) Monocytes # (Auto) 0.5 x10^3/uL (0.0-1.1) Eosinophils # (Auto) 0.2 x10^3/uL (0.0-0.7) Basophils # (Auto) 0.0 x10^3/uL (0.0-0.2) Prothrombin Time 12.3 SEC (11.7-14.0) Prothromb Time International Ratio 1.0 (0.8-1.1) Sodium Level 137 mmol/L (136-145) Potassium Level 3.5 mmol/L (3.5-5.1) Chloride Level 98 mmol/L (98-107) Carbon Dioxide Level 30 mmol/L (21-32) Anion Gap 9 (6-14) Blood Urea Nitrogen 16 mg/dL (8-26) Creatinine 0.7 mg/dL (0.7-1.3) Estimated GFR (Cockcroft-Gault) 117.1 BUN/Creatinine Ratio 23 (6-20) Glucose Level 235 mg/dL (70-99) Calcium Level 9.2 mg/dL (8.5-10.1) Magnesium Level 1.4 mg/dL (1.8-2.4) Total Bilirubin 0.5 mg/dL (0.2-1.0) Aspartate Amino Transf (AST/SGOT) 19 U/L (15-37) Alanine Aminotransferase (ALT/SGPT) 40 U/L (16-63) Alkaline Phosphatase 107 U/L (46-116) Creatine Kinase 92 U/L (39-308) Troponin I Quantitative < 0.017 ng/mL (0.000-0.055) OT-Irc-[id number]-Type Natriuretic Peptide 43 pg/mL (0-124) Total Protein 7.7 g/dL (6.4-8.2) Albumin 3.8 g/dL (3.4-5.0) Albumin/Globulin Ratio 1.0 (1.0-1.7) Urine Collection Type Unknown Urine Color Yellow Urine Clarity Clear Urine pH 7.0 (<5.0-8.0) Urine Specific [place] 1.015 (1.000-1.030) Urine Protein 30 mg/dL (NEG-TRACE) Urine Glucose (UA) 250 mg/dL (NEG) Urine Ketones (Stick) Negative mg/dL (NEG) Urine Blood Negative (NEG) Urine Nitrite Negative (NEG) Urine Bilirubin Negative (NEG) Urine Urobilinogen Dipstick 0.2 mg/dL (0.2 mg/dL) Urine Leukocyte Esterase Negative (NEG) Urine RBC 0 /HPF (0-2) Urine WBC Occ /HPF (0-4) Urine Squamous Epithelial Cells Occ /LPF Urine Bacteria 0 /HPF (0-FEW) Urine Mucus Slight /LPF Test 10/14/19 00:09 10/14/19 07:40 10/14/19 08:33 Glucose (Fingerstick) 252 mg/dL (70-99) 133 mg/dL (70-99) White Blood Count 10.4 x10^3/uL (4.0-11.0) Red Blood Count 5.02 x10^6/uL (4.30-5.70) Hemoglobin 14.2 g/dL (13.0-17.5) Hematocrit 41.4 % (39.0-53.0) Mean Corpuscular Volume 83 fL (79-100) Mean Corpuscular Hemoglobin 28 pg (25-35) Mean Corpuscular Hemoglobin Concent 34 g/dL (31-37) Red Cell Distribution Width 13.4 % (11.5-14.5) Platelet Count 254 x10^3/uL (140-400) Neutrophils (%) (Auto) 68 % (31-73) Lymphocytes (%) (Auto) 23 % (24-48) Monocytes (%) (Auto) 6 % (0-9) Eosinophils (%) (Auto) 2 % (0-3) Basophils (%) (Auto) 1 % (0-3) Neutrophils # (Auto) 7.1 x10^3/uL (1.8-7.7) Lymphocytes # (Auto) 2.4 x10^3/uL (1.0-4.8) Monocytes # (Auto) 0.7 x10^3/uL (0.0-1.1) Eosinophils # (Auto) 0.2 x10^3/uL (0.0-0.7) Basophils # (Auto) 0.1 x10^3/uL (0.0-0.2) Sodium Level 140 mmol/L (136-145) Potassium Level 3.5 mmol/L (3.5-5.1) Chloride Level 101 mmol/L (98-107) Carbon Dioxide Level 31 mmol/L (21-32) Anion Gap 8 (6-14) Blood Urea Nitrogen 11 mg/dL (8-26) Creatinine 0.6 mg/dL (0.7-1.3) Estimated GFR (Cockcroft-Gault) 139.9 Glucose Level 147 mg/dL (70-99) Calcium Level 9.0 mg/dL (8.5-10.1) Magnesium Level 2.1 mg/dL (1.8-2.4) Laboratory Tests Test 10/13/19 22:51 10/13/19 22:52 10/13/19 23:43 10/13/19 23:56 Glucose (Fingerstick) 61 mg/dL (70-99) 250 mg/dL (70-99) White Blood Count 11.2 x10^3/uL (4.0-11.0) Red Blood Count 5.08 x10^6/uL (4.30-5.70) Hemoglobin 14.2 g/dL (13.0-17.5) Hematocrit 41.8 % (39.0-53.0) Mean Corpuscular Volume 82 fL (79-100) Mean Corpuscular Hemoglobin 28 pg (25-35) Mean Corpuscular Hemoglobin Concent 34 g/dL (31-37) Red Cell Distribution Width 13.3 % (11.5-14.5) Platelet Count 244 x10^3/uL (140-400) Neutrophils (%) (Auto) 84 % (31-73) Lymphocytes (%) (Auto) 10 % (24-48) Monocytes (%) (Auto) 4 % (0-9) Eosinophils (%) (Auto) 1 % (0-3) Basophils (%) (Auto) 0 % (0-3) Neutrophils # (Auto) 9.4 x10^3/uL (1.8-7.7) Lymphocytes # (Auto) 1.1 x10^3/uL (1.0-4.8) Monocytes # (Auto) 0.5 x10^3/uL (0.0-1.1) Eosinophils # (Auto) 0.2 x10^3/uL (0.0-0.7) Basophils # (Auto) 0.0 x10^3/uL (0.0-0.2) Prothrombin Time 12.3 SEC (11.7-14.0) Prothromb Time International Ratio 1.0 (0.8-1.1) Sodium Level 137 mmol/L (136-145) Potassium Level 3.5 mmol/L (3.5-5.1) Chloride Level 98 mmol/L (98-107) Carbon Dioxide Level 30 mmol/L (21-32) Anion Gap 9 (6-14) Blood Urea Nitrogen 16 mg/dL (8-26) Creatinine 0.7 mg/dL (0.7-1.3) Estimated GFR (Cockcroft-Gault) 117.1 BUN/Creatinine Ratio 23 (6-20) Glucose Level 235 mg/dL (70-99) Calcium Level 9.2 mg/dL (8.5-10.1) Magnesium Level 1.4 mg/dL (1.8-2.4) Total Bilirubin 0.5 mg/dL (0.2-1.0) Aspartate Amino Transf (AST/SGOT) 19 U/L (15-37) Alanine Aminotransferase (ALT/SGPT) 40 U/L (16-63) Alkaline Phosphatase 107 U/L (46-116) Creatine Kinase 92 U/L (39-308) Troponin I Quantitative < 0.017 ng/mL (0.000-0.055) OP-Ktk-T-Type Natriuretic Peptide 43 pg/mL (0-124) Total Protein 7.7 g/dL (6.4-8.2) Albumin 3.8 g/dL (3.4-5.0) Albumin/Globulin Ratio 1.0 (1.0-1.7) Urine Collection Type Unknown Urine Color Yellow Urine Clarity Clear Urine pH 7.0 (<5.0-8.0) Urine Specific [place] 1.015 (1.000-1.030) Urine Protein 30 mg/dL (NEG-TRACE) Urine Glucose (UA) 250 mg/dL (NEG) Urine Ketones (Stick) Negative mg/dL (NEG) Urine Blood Negative (NEG) Urine Nitrite Negative (NEG) Urine Bilirubin Negative (NEG) Urine Urobilinogen Dipstick 0.2 mg/dL (0.2 mg/dL) Urine Leukocyte Esterase Negative (NEG) Urine RBC 0 /HPF (0-2) Urine WBC Occ /HPF (0-4) Urine Squamous Epithelial Cells Occ /LPF Urine Bacteria 0 /HPF (0-FEW) Urine Mucus Slight /LPF Test 10/14/19 00:09 10/14/19 07:40 10/14/19 08:33 Glucose (Fingerstick) 252 mg/dL (70-99) 133 mg/dL (70-99) White Blood Count 10.4 x10^3/uL (4.0-11.0) Red Blood Count 5.02 x10^6/uL (4.30-5.70) Hemoglobin 14.2 g/dL (13.0-17.5) Hematocrit 41.4 % (39.0-53.0) Mean Corpuscular Volume 83 fL (79-100) Mean Corpuscular Hemoglobin 28 pg (25-35) Mean Corpuscular Hemoglobin Concent 34 g/dL (31-37) Red Cell Distribution Width 13.4 % (11.5-14.5) Platelet Count 254 x10^3/uL (140-400) Neutrophils (%) (Auto) 68 % (31-73) Lymphocytes (%) (Auto) 23 % (24-48) Monocytes (%) (Auto) 6 % (0-9) Eosinophils (%) (Auto) 2 % (0-3) Basophils (%) (Auto) 1 % (0-3) Neutrophils # (Auto) 7.1 x10^3/uL (1.8-7.7) Lymphocytes # (Auto) 2.4 x10^3/uL (1.0-4.8) Monocytes # (Auto) 0.7 x10^3/uL (0.0-1.1) Eosinophils # (Auto) 0.2 x10^3/uL (0.0-0.7) Basophils # (Auto) 0.1 x10^3/uL (0.0-0.2) Sodium Level 140 mmol/L (136-145) Potassium Level 3.5 mmol/L (3.5-5.1) Chloride Level 101 mmol/L (98-107) Carbon Dioxide Level 31 mmol/L (21-32) Anion Gap 8 (6-14) Blood Urea Nitrogen 11 mg/dL (8-26) Creatinine 0.6 mg/dL (0.7-1.3) Estimated GFR (Cockcroft-Gault) 139.9 Glucose Level 147 mg/dL (70-99) Calcium Level 9.0 mg/dL (8.5-10.1) Magnesium Level 2.1 mg/dL (1.8-2.4) VTE Prophylaxis Ordered VTE Prophylaxis Devices: No VTE Pharmacological Prophylaxi: Yes Assessment/Plan Assessment/Plan acute RLQ pain, will andrew, check CT scan, PRINCESS ARIAS MD Oct 14, 2019 09:45
[2019-10-14] MEDS ORDERED: IOHEXOL 240 MG/ML 50ML VIAL. PO ONE (10:45)
[2019-10-14] MEDS ORDERED: CONTRAST GIVEN. MC PRN (10:45)
[2019-10-14] MEDS ORDERED: IOHEXOL 300 MG/ML 100ML VIAL. IV ONE (10:45)
--- NOTE | 2019-10-14 11:29 | PDOC2 ---
GI CONSULT Reason For Consult: abd pain and diarrhea HPI: HPI: 54 y/o male who saw Dr. Pitt here at [facility] in 12/2016 for a variety of GI complaints. CT at that time showed non-specific RUQ inflammation. UGI was w/o obstruction, EGD showed non-erosive gastritis (no biopsy), and colonoscopy showed internal hemorrhoids. Outpt GES was recommended if symptoms persisted. Recently has had issues w/ pneumonia, vertigo, and left ear pain - to follow-up w/ ENT on 10/21. GI-abdi, has been asymptomatic since then until last night. Had a headache and "head spinning" last night, vomited "a lot," had abdominal pain, and lost his balance. He is deaf and his mother Chantell helps w/ signing. Denies reflux/heartburn, dysphagia, hematemesis, diarrhea, constipation, hematochezia, melena, and weight loss. Previously reported EGDs w/ dilation in the past. S/p cholecystectomy. Hepatic steatosis on past imaging. No pancreas or PUD history. CT C/A/P ordered by primary, pt currently drinking contrast. Med list includes diclofenac, meclizine, and pantoprazole. Mother says not taking pantoprazole but does take Equate Tylenol for ear pain. PMH: PMH: HTN, HLD, DM, pneumonia cholecystectomy, tonsillectomy, bronchoscopy, cochlear implant FH: Family History: No pertinent hx Social History: Smoke: No ALCOHOL: none Drugs: None ROS: GEN: +sweats HEENT: +ear pain CV: Denies chest pain RESP: Denies shortness of air, cough GI: Per HPI : Denies hematuria, dysuria ENDO: Denies weight changes NEURO: +dizziness MSK: Denies weakness, joint pain/swelling SKIN: Denies jaundice, pruritus Vitals: Vitals: Vital Signs Date Time Temp Pulse Resp B/P (MAP) Pulse Ox O2 Delivery O2 Flow Rate FiO2 10/14/19 07:00 97.8 78 16 131/78 (95) 97 Room Air 97.8 Labs: Labs: Laboratory Tests Test 10/13/19 22:51 10/13/19 22:52 10/13/19 23:43 10/13/19 23:56 Glucose (Fingerstick) 61 mg/dL (70-99) 250 mg/dL (70-99) White Blood Count 11.2 x10^3/uL (4.0-11.0) Red Blood Count 5.08 x10^6/uL (4.30-5.70) Hemoglobin 14.2 g/dL (13.0-17.5) Hematocrit 41.8 % (39.0-53.0) Mean Corpuscular Volume 82 fL (79-100) Mean Corpuscular Hemoglobin 28 pg (25-35) Mean Corpuscular Hemoglobin Concent 34 g/dL (31-37) Red Cell Distribution Width 13.3 % (11.5-14.5) Platelet Count 244 x10^3/uL (140-400) Neutrophils (%) (Auto) 84 % (31-73) Lymphocytes (%) (Auto) 10 % (24-48) Monocytes (%) (Auto) 4 % (0-9) Eosinophils (%) (Auto) 1 % (0-3) Basophils (%) (Auto) 0 % (0-3) Neutrophils # (Auto) 9.4 x10^3/uL (1.8-7.7) Lymphocytes # (Auto) 1.1 x10^3/uL (1.0-4.8) Monocytes # (Auto) 0.5 x10^3/uL (0.0-1.1) Eosinophils # (Auto) 0.2 x10^3/uL (0.0-0.7) Basophils # (Auto) 0.0 x10^3/uL (0.0-0.2) Prothrombin Time 12.3 SEC (11.7-14.0) Prothromb Time International Ratio 1.0 (0.8-1.1) Sodium Level 137 mmol/L (136-145) Potassium Level 3.5 mmol/L (3.5-5.1) Chloride Level 98 mmol/L (98-107) Carbon Dioxide Level 30 mmol/L (21-32) Anion Gap 9 (6-14) Blood Urea Nitrogen 16 mg/dL (8-26) Creatinine 0.7 mg/dL (0.7-1.3) Estimated GFR (Cockcroft-Gault) 117.1 BUN/Creatinine Ratio 23 (6-20) Glucose Level 235 mg/dL (70-99) Calcium Level 9.2 mg/dL (8.5-10.1) Magnesium Level 1.4 mg/dL (1.8-2.4) Total Bilirubin 0.5 mg/dL (0.2-1.0) Aspartate Amino Transf (AST/SGOT) 19 U/L (15-37) Alanine Aminotransferase (ALT/SGPT) 40 U/L (16-63) Alkaline Phosphatase 107 U/L (46-116) Creatine Kinase 92 U/L (39-308) Troponin I Quantitative < 0.017 ng/mL (0.000-0.055) HV-Zhy-H-Type Natriuretic Peptide 43 pg/mL (0-124) Total Protein 7.7 g/dL (6.4-8.2) Albumin 3.8 g/dL (3.4-5.0) Albumin/Globulin Ratio 1.0 (1.0-1.7) Urine Collection Type Unknown Urine Color Yellow Urine Clarity Clear Urine pH 7.0 (<5.0-8.0) Urine Specific [place] 1.015 (1.000-1.030) Urine Protein 30 mg/dL (NEG-TRACE) Urine Glucose (UA) 250 mg/dL (NEG) Urine Ketones (Stick) Negative mg/dL (NEG) Urine Blood Negative (NEG) Urine Nitrite Negative (NEG) Urine Bilirubin Negative (NEG) Urine Urobilinogen Dipstick 0.2 mg/dL (0.2 mg/dL) Urine Leukocyte Esterase Negative (NEG) Urine RBC 0 /HPF (0-2) Urine WBC Occ /HPF (0-4) Urine Squamous Epithelial Cells Occ /LPF Urine Bacteria 0 /HPF (0-FEW) Urine Mucus Slight /LPF Test 10/14/19 00:09 10/14/19 07:40 10/14/19 08:33 Glucose (Fingerstick) 252 mg/dL (70-99) 133 mg/dL (70-99) White Blood Count 10.4 x10^3/uL (4.0-11.0) Red Blood Count 5.02 x10^6/uL (4.30-5.70) Hemoglobin 14.2 g/dL (13.0-17.5) Hematocrit 41.4 % (39.0-53.0) Mean Corpuscular Volume 83 fL (79-100) Mean Corpuscular Hemoglobin 28 pg (25-35) Mean Corpuscular Hemoglobin Concent 34 g/dL (31-37) Red Cell Distribution Width 13.4 % (11.5-14.5) Platelet Count 254 x10^3/uL (140-400) Neutrophils (%) (Auto) 68 % (31-73) Lymphocytes (%) (Auto) 23 % (24-48) Monocytes (%) (Auto) 6 % (0-9) Eosinophils (%) (Auto) 2 % (0-3) Basophils (%) (Auto) 1 % (0-3) Neutrophils # (Auto) 7.1 x10^3/uL (1.8-7.7) Lymphocytes # (Auto) 2.4 x10^3/uL (1.0-4.8) Monocytes # (Auto) 0.7 x10^3/uL (0.0-1.1) Eosinophils # (Auto) 0.2 x10^3/uL (0.0-0.7) Basophils # (Auto) 0.1 x10^3/uL (0.0-0.2) Sodium Level 140 mmol/L (136-145) Potassium Level 3.5 mmol/L (3.5-5.1) Chloride Level 101 mmol/L (98-107) Carbon Dioxide Level 31 mmol/L (21-32) Anion Gap 8 (6-14) Blood Urea Nitrogen 11 mg/dL (8-26) Creatinine 0.6 mg/dL (0.7-1.3) Estimated GFR (Cockcroft-Gault) 139.9 Glucose Level 147 mg/dL (70-99) Calcium Level 9.0 mg/dL (8.5-10.1) Magnesium Level 2.1 mg/dL (1.8-2.4) Allergies: Coded Allergies: hydrocodone (Verified Adverse Reaction, Intermediate, confusion , 12/10/16) Medications: Current Medications Medications (Trade) Dose Ordered Sig/Sharyn Route PRN Reason Start Time Stop Time Status Last Admin Dose Admin Magnesium Sulfate 50 ml @ 25 mls/hr 1X ONCE IV 10/14/19 00:00 10/14/19 01:59 DC 10/14/19 00:51 Imaging: Imaging: Head CT IMPRESSION: 1. No evidence for acute intracranial process. 2. White matter changes likely chronic small vessel disease. 3. Of note, streak artifact in the left temporal region significantly limits evaluation. CXR IMPRESSION: The heart is not enlarged. Mediastinal and hilar contours are normal. Bilateral interstitial prominence is grossly unchanged accounting for differences in lung volumes. Left lung base calcified granuloma. No pleural effusion or pneumothorax. PE: GEN: uncomfortable HEENT: Atraumatic, PERRL LUNGS: CTAB HEART: RRR ABD: quiet BS, soft, tender in RUQ, RLQ, and LLQ EXTREMITY: No edema SKIN: No rashes, no jaundice NEURO/PSYCH: A & O 3 A/P: A/P: Vertigo, left ear pain - chronic w/ planned ENT follow-up Vomiting, abd pain - acute onset last night CRC screen - UTD Diverticulosis, hemorrhoids S/p cholecystectomy DM -- Await CT. Agree w/ PPI - can change to IV if needed. Consider GES. ETHEL SCHMIDT Oct 14, 2019 11:29
--- NOTE | 2019-10-14 12:39 | NUR ---
SS following for discharge planning. SS reviewed pt chart. Pt is from home and is currently on room air. SS will continue to follow for discharge planning.
[2019-10-14] MEDS: PANTOPRAZOLE 40 MG TABLET.DR. PO SCH (12:43)
[2019-10-14] MEDS: DICLOFENAC SODIUM 25 MG TABLET.DR PO SCH ×2 (12:43→20:32)
[2019-10-14] MEDS: ASPIRIN ENTERIC COATED 81 MG TABLET.DR. PO SCH (12:43)
[2019-10-14] MEDS: amLODIPine BESYLATE 10 MG TABLET PO SCH (12:44)
[2019-10-14] MEDS: FENOFIBRATE,MICRONIZED 134 MG CAPSULE PO SCH (12:44)
[2019-10-14] MEDS: MECLIZINE HCL 12.5 MG TABLET. PO SCH ×2 (12:44→20:33)
[2019-10-14] MEDS: LISINOPRIL 20 MG TABLET PO SCH (12:44)
[2019-10-14] MEDS: hydroCHLOROthiazide 25 MG TABLET PO SCH (12:45)
--- NOTE | 2019-10-14 14:11 | PDOC2 ---
LILOSTAN Sendy PARACHUTE RIGGER 10/14/19 1410: CONSULT Date of Consult Date of Consult DATE: 10/14/19 TIME: 14:07 Reason for Consult Reason for Consult: RLQ pain Referring Physician Referring Physician: Dr Gillis Source Source: Caregiver, Chart review History of Present Illness Reason for Visit: Acute onset vomiting, abdominal pain, and diarrhea He does have a hx of vertigo, was severe yesterday prior to symptoms some loose stool today, chills at home, clammy, pain is RLQ, umbilical Past Medical History Cardiovascular: HTN Psych: No pertinent hx Endocrine: Diabetes Past Surgical History Past Surgical History: Cholecystectomy, Other Family History Family History: Hypertension, Family History Unknown Social History No ALCOHOL: none Drugs: None Current Problem List Problem List Problems Medical Problems: (1) Dizziness Status: Acute (2) Hypomagnesemia Status: Acute (3) Impaired hearing Status: Acute (4) Uncontrolled diabetes mellitus Status: Acute Current Medications Current Medications Current Medications Ondansetron HCl (Zofran) 4 mg 1X ONCE IVP ; Start 10/13/19 at 23:30; Stop 10/13/19 at 23:31; Status DC Meclizine HCl (Antivert) 25 mg 1X ONCE PO ; Start 10/13/19 at 23:30; Stop 10/13/19 at 23:31; Status DC Magnesium Sulfate 50 ml @ 25 mls/hr 1X ONCE IV Last administered on 10/14/19at 00:51; Start 10/14/19 at 00:00; Stop 10/14/19 at 01:59; Status DC Ondansetron HCl (Zofran) 4 mg PRN Q8HRS PRN IV NAUSEA/VOMITING 1ST CHOICE; Start 10/14/19 at 00:00; Stop 10/14/19 at 06:00; Status DC Ondansetron HCl (Zofran) 4 mg PRN Q8HRS PRN IVP NAUSEA/VOMITING Last administered on 10/14/19at 12:47; Start 10/14/19 at 09:00 Amlodipine Besylate (Norvasc) 10 mg DAILY PO Last administered on 10/14/19at 12:44; Start 10/14/19 at 10:00 Aspirin (Ecotrin) 81 mg DAILY PO Last administered on 10/14/19at 12:43; Start 10/14/19 at 10:00 Atorvastatin Calcium (Lipitor) 10 mg HS PO ; Start 10/14/19 at 21:00 Pantoprazole Sodium (Protonix) 40 mg DAILY PO Last administered on 10/14/19at 12:43; Start 10/14/19 at 10:00 Tramadol HCl (Ultram) 50 mg PRN Q6HRS PRN PO PAIN; Start 10/14/19 at 09:00 Diclofenac Sodium (Voltaren) 50 mg BID PO Last administered on 10/14/19at 12:43; Start 10/14/19 at 10:00 Fenofibrate (Lofibra) 134 mg DAILY PO Last administered on 10/14/19at 12:44; Start 10/14/19 at 10:00 Glipizide (Glucotrol) 10 mg BIDBFRMEAL PO ; Start 10/14/19 at 16:30 Lisinopril (Prinivil) 40 mg DAILY PO Last administered on 10/14/19at 12:44; Start 10/14/19 at 10:00 Meclizine HCl (Antivert) 25 mg BID PO Last administered on 10/14/19at 12:44; Start 10/14/19 at 10:00 Ondansetron HCl (Zofran Odt) 4 mg PRN Q6HRS PRN PO NAUSEA/VOMITING; Start 10/14/19 at 09:30 Hydrochlorothiazide (Hydrodiuril) 25 mg DAILY PO Last administered on 10/14/19at 12:45; Start 10/14/19 at 10:00 Iohexol (Omnipaque 240 Mg/ml) 30 ml 1X ONCE PO Last administered on 10/14/19at 10:45; Start 10/14/19 at 10:45; Stop 10/14/19 at 10:46; Status DC Iohexol (Omnipaque 300 Mg/ml) 75 ml 1X ONCE IV Last administered on 10/14/19at 10:45; Start 10/14/19 at 10:45; Stop 10/14/19 at 10:46; Status DC Info (CONTRAST GIVEN -- Rx MONITORING) 1 each PRN DAILY PRN MC SEE COMMENTS; Start 10/14/19 at 10:45; Stop 10/16/19 at 10:44 Active Scripts Active Zofran (Ondansetron Hcl) 4 Mg Tablet 1 Tab PO PRN Q6-8HRS Diclofenac Potassium 50 Mg Tablet 1 Tab PO BID Ultram (Tramadol Hcl) 50 Mg Tablet 1 Tab PO Q6HRS PRN Reported Meclizine Hcl 25 Mg Tablet 25 Mg PO BID Glipizide 10 Mg Tablet 1 Tab PO BID Metformin Hcl Er (Metformin Hcl) 1,000 Mg Tab.er.24 1,000 Mg PO DAILYWBKFT Lisinopril-Hctz 20-12.5 Mg Tab (Lisinopril/Hydrochlorothiazide) 1 Each Tablet 2 Tab PO DAILY Pantoprazole Sodium (Pantoprazole Sodium) 40 Mg Tablet.dr 1 Tab PO DAILY Atorvastatin Calcium 10 Mg Tablet 1 Tab PO HS Amlodipine Besylate 10 Mg Tablet 10 Mg PO DAILY Fenofibrate (Fenofibrate,Micronized) 200 Mg Capsule 1 Cap PO DAILY Aspir 81 (Aspirin) 81 Mg Tablet.dr 1 Tab PO DAILY Allergies Allergies: Coded Allergies: hydrocodone (Verified Adverse Reaction, Intermediate, confusion , 12/10/16) ROS General: YES: Chills; No: Other (fevers ) PSYCHOLOGICAL ROS: No: Anxiety, Depression Eyes: Yes Blurry vision; No Double vision HEENT: No: Heacaches, Sore Throat Hematological and Lymphatic: No: Bleeding Problems, Blood Clots Respiratory: No: Cough, Shortness of breath Cardiovascular: No Chest Pain, No Palpitations Gastrointestinal: Yes Other (see hpi) Genitourinary: No Dysuria, No Hematuria Musculoskeletal: No Joint Pain, No Muscle Pain Neurological: No Impaired Coord/balance, No Numbness/Tingling Skin: No Pruritus, No Rash Physical Exam General: Alert, Oriented X3, Cooperative HEENT: Atraumatic, PERRLA Lungs: Clear to auscultation, Normal air movement Heart: Regular rate, Normal S1, Normal S2 Abdomen: Soft, Other (TTP lower abdomen ) Extremities: No clubbing, No cyanosis Skin: No rashes, No breakdown Neuro: Normal gait, Normal speech Psych/Mental Status: Mental status NL, Mood NL MUSCULOSKELETAL: No deformity, No swelling Vitals VITALS Vital Signs Date Time Temp Pulse Resp B/P (MAP) Pulse Ox O2 Delivery O2 Flow Rate FiO2 10/14/19 12:44 86 137/78 10/14/19 11:00 98.1 16 95 Room Air 98.1 Labs Labs Laboratory Tests Test 10/13/19 22:51 10/13/19 22:52 10/13/19 23:43 10/13/19 23:56 Glucose (Fingerstick) 61 mg/dL (70-99) 250 mg/dL (70-99) White Blood Count 11.2 x10^3/uL (4.0-11.0) Red Blood Count 5.08 x10^6/uL (4.30-5.70) Hemoglobin 14.2 g/dL (13.0-17.5) Hematocrit 41.8 % (39.0-53.0) Mean Corpuscular Volume 82 fL (79-100) Mean Corpuscular Hemoglobin 28 pg (25-35) Mean Corpuscular Hemoglobin Concent 34 g/dL (31-37) Red Cell Distribution Width 13.3 % (11.5-14.5) Platelet Count 244 x10^3/uL (140-400) Neutrophils (%) (Auto) 84 % (31-73) Lymphocytes (%) (Auto) 10 % (24-48) Monocytes (%) (Auto) 4 % (0-9) Eosinophils (%) (Auto) 1 % (0-3) Basophils (%) (Auto) 0 % (0-3) Neutrophils # (Auto) 9.4 x10^3/uL (1.8-7.7) Lymphocytes # (Auto) 1.1 x10^3/uL (1.0-4.8) Monocytes # (Auto) 0.5 x10^3/uL (0.0-1.1) Eosinophils # (Auto) 0.2 x10^3/uL (0.0-0.7) Basophils # (Auto) 0.0 x10^3/uL (0.0-0.2) Prothrombin Time 12.3 SEC (11.7-14.0) Prothromb Time International Ratio 1.0 (0.8-1.1) Sodium Level 137 mmol/L (136-145) Potassium Level 3.5 mmol/L (3.5-5.1) Chloride Level 98 mmol/L (98-107) Carbon Dioxide Level 30 mmol/L (21-32) Anion Gap 9 (6-14) Blood Urea Nitrogen 16 mg/dL (8-26) Creatinine 0.7 mg/dL (0.7-1.3) Estimated GFR (Cockcroft-Gault) 117.1 BUN/Creatinine Ratio 23 (6-20) Glucose Level 235 mg/dL (70-99) Calcium Level 9.2 mg/dL (8.5-10.1) Magnesium Level 1.4 mg/dL (1.8-2.4) Total Bilirubin 0.5 mg/dL (0.2-1.0) Aspartate Amino Transf (AST/SGOT) 19 U/L (15-37) Alanine Aminotransferase (ALT/SGPT) 40 U/L (16-63) Alkaline Phosphatase 107 U/L (46-116) Creatine Kinase 92 U/L (39-308) Troponin I Quantitative < 0.017 ng/mL (0.000-0.055) IF-Qif-E-Type Natriuretic Peptide 43 pg/mL (0-124) Total Protein 7.7 g/dL (6.4-8.2) Albumin 3.8 g/dL (3.4-5.0) Albumin/Globulin Ratio 1.0 (1.0-1.7) Urine Collection Type Unknown Urine Color Yellow Urine Clarity Clear Urine pH 7.0 (<5.0-8.0) Urine Specific [place] 1.015 (1.000-1.030) Urine Protein 30 mg/dL (NEG-TRACE) Urine Glucose (UA) 250 mg/dL (NEG) Urine Ketones (Stick) Negative mg/dL (NEG) Urine Blood Negative (NEG) Urine Nitrite Negative (NEG) Urine Bilirubin Negative (NEG) Urine Urobilinogen Dipstick 0.2 mg/dL (0.2 mg/dL) Urine Leukocyte Esterase Negative (NEG) Urine RBC 0 /HPF (0-2) Urine WBC Occ /HPF (0-4) Urine Squamous Epithelial Cells Occ /LPF Urine Bacteria 0 /HPF (0-FEW) Urine Mucus Slight /LPF Test 10/14/19 00:09 10/14/19 07:40 10/14/19 08:33 10/14/19 12:15 Glucose (Fingerstick) 252 mg/dL (70-99) 133 mg/dL (70-99) 146 mg/dL (70-99) White Blood Count 10.4 x10^3/uL (4.0-11.0) Red Blood Count 5.02 x10^6/uL (4.30-5.70) Hemoglobin 14.2 g/dL (13.0-17.5) Hematocrit 41.4 % (39.0-53.0) Mean Corpuscular Volume 83 fL (79-100) Mean Corpuscular Hemoglobin 28 pg (25-35) Mean Corpuscular Hemoglobin Concent 34 g/dL (31-37) Red Cell Distribution Width 13.4 % (11.5-14.5) Platelet Count 254 x10^3/uL (140-400) Neutrophils (%) (Auto) 68 % (31-73) Lymphocytes (%) (Auto) 23 % (24-48) Monocytes (%) (Auto) 6 % (0-9) Eosinophils (%) (Auto) 2 % (0-3) Basophils (%) (Auto) 1 % (0-3) Neutrophils # (Auto) 7.1 x10^3/uL (1.8-7.7) Lymphocytes # (Auto) 2.4 x10^3/uL (1.0-4.8) Monocytes # (Auto) 0.7 x10^3/uL (0.0-1.1) Eosinophils # (Auto) 0.2 x10^3/uL (0.0-0.7) Basophils # (Auto) 0.1 x10^3/uL (0.0-0.2) Sodium Level 140 mmol/L (136-145) Potassium Level 3.5 mmol/L (3.5-5.1) Chloride Level 101 mmol/L (98-107) Carbon Dioxide Level 31 mmol/L (21-32) Anion Gap 8 (6-14) Blood Urea Nitrogen 11 mg/dL (8-26) Creatinine 0.6 mg/dL (0.7-1.3) Estimated GFR (Cockcroft-Gault) 139.9 Glucose Level 147 mg/dL (70-99) Calcium Level 9.0 mg/dL (8.5-10.1) Magnesium Level 2.1 mg/dL (1.8-2.4) Laboratory Tests Test 10/13/19 22:51 10/13/19 22:52 10/13/19 23:43 10/13/19 23:56 Glucose (Fingerstick) 61 mg/dL (70-99) 250 mg/dL (70-99) White Blood Count 11.2 x10^3/uL (4.0-11.0) Red Blood Count 5.08 x10^6/uL (4.30-5.70) Hemoglobin 14.2 g/dL (13.0-17.5) Hematocrit 41.8 % (39.0-53.0) Mean Corpuscular Volume 82 fL (79-100) Mean Corpuscular Hemoglobin 28 pg (25-35) Mean Corpuscular Hemoglobin Concent 34 g/dL (31-37) Red Cell Distribution Width 13.3 % (11.5-14.5) Platelet Count 244 x10^3/uL (140-400) Neutrophils (%) (Auto) 84 % (31-73) Lymphocytes (%) (Auto) 10 % (24-48) Monocytes (%) (Auto) 4 % (0-9) Eosinophils (%) (Auto) 1 % (0-3) Basophils (%) (Auto) 0 % (0-3) Neutrophils # (Auto) 9.4 x10^3/uL (1.8-7.7) Lymphocytes # (Auto) 1.1 x10^3/uL (1.0-4.8) Monocytes # (Auto) 0.5 x10^3/uL (0.0-1.1) Eosinophils # (Auto) 0.2 x10^3/uL (0.0-0.7) Basophils # (Auto) 0.0 x10^3/uL (0.0-0.2) Prothrombin Time 12.3 SEC (11.7-14.0) Prothromb Time International Ratio 1.0 (0.8-1.1) Sodium Level 137 mmol/L (136-145) Potassium Level 3.5 mmol/L (3.5-5.1) Chloride Level 98 mmol/L (98-107) Carbon Dioxide Level 30 mmol/L (21-32) Anion Gap 9 (6-14) Blood Urea Nitrogen 16 mg/dL (8-26) Creatinine 0.7 mg/dL (0.7-1.3) Estimated GFR (Cockcroft-Gault) 117.1 BUN/Creatinine Ratio 23 (6-20) Glucose Level 235 mg/dL (70-99) Calcium Level 9.2 mg/dL (8.5-10.1) Magnesium Level 1.4 mg/dL (1.8-2.4) Total Bilirubin 0.5 mg/dL (0.2-1.0) Aspartate Amino Transf (AST/SGOT) 19 U/L (15-37) Alanine Aminotransferase (ALT/SGPT) 40 U/L (16-63) Alkaline Phosphatase 107 U/L (46-116) Creatine Kinase 92 U/L (39-308) Troponin I Quantitative < 0.017 ng/mL (0.000-0.055) FO-Voe-O-Type Natriuretic Peptide 43 pg/mL (0-124) Total Protein 7.7 g/dL (6.4-8.2) Albumin 3.8 g/dL (3.4-5.0) Albumin/Globulin Ratio 1.0 (1.0-1.7) Urine Collection Type Unknown Urine Color Yellow Urine Clarity Clear Urine pH 7.0 (<5.0-8.0) Urine Specific [place] 1.015 (1.000-1.030) Urine Protein 30 mg/dL (NEG-TRACE) Urine Glucose (UA) 250 mg/dL (NEG) Urine Ketones (Stick) Negative mg/dL (NEG) Urine Blood Negative (NEG) Urine Nitrite Negative (NEG) Urine Bilirubin Negative (NEG) Urine Urobilinogen Dipstick 0.2 mg/dL (0.2 mg/dL) Urine Leukocyte Esterase Negative (NEG) Urine RBC 0 /HPF (0-2) Urine WBC Occ /HPF (0-4) Urine Squamous Epithelial Cells Occ /LPF Urine Bacteria 0 /HPF (0-FEW) Urine Mucus Slight /LPF Test 10/14/19 00:09 10/14/19 07:40 10/14/19 08:33 10/14/19 12:15 Glucose (Fingerstick) 252 mg/dL (70-99) 133 mg/dL (70-99) 146 mg/dL (70-99) White Blood Count 10.4 x10^3/uL (4.0-11.0) Red Blood Count 5.02 x10^6/uL (4.30-5.70) Hemoglobin 14.2 g/dL (13.0-17.5) Hematocrit 41.4 % (39.0-53.0) Mean Corpuscular Volume 83 fL (79-100) Mean Corpuscular Hemoglobin 28 pg (25-35) Mean Corpuscular Hemoglobin Concent 34 g/dL (31-37) Red Cell Distribution Width 13.4 % (11.5-14.5) Platelet Count 254 x10^3/uL (140-400) Neutrophils (%) (Auto) 68 % (31-73) Lymphocytes (%) (Auto) 23 % (24-48) Monocytes (%) (Auto) 6 % (0-9) Eosinophils (%) (Auto) 2 % (0-3) Basophils (%) (Auto) 1 % (0-3) Neutrophils # (Auto) 7.1 x10^3/uL (1.8-7.7) Lymphocytes # (Auto) 2.4 x10^3/uL (1.0-4.8) Monocytes # (Auto) 0.7 x10^3/uL (0.0-1.1) Eosinophils # (Auto) 0.2 x10^3/uL (0.0-0.7) Basophils # (Auto) 0.1 x10^3/uL (0.0-0.2) Sodium Level 140 mmol/L (136-145) Potassium Level 3.5 mmol/L (3.5-5.1) Chloride Level 101 mmol/L (98-107) Carbon Dioxide Level 31 mmol/L (21-32) Anion Gap 8 (6-14) Blood Urea Nitrogen 11 mg/dL (8-26) Creatinine 0.6 mg/dL (0.7-1.3) Estimated GFR (Cockcroft-Gault) 139.9 Glucose Level 147 mg/dL (70-99) Calcium Level 9.0 mg/dL (8.5-10.1) Magnesium Level 2.1 mg/dL (1.8-2.4) Assessment/Plan Assessment/Plan abdominal pain, vomiting hx of vertigo will await CT abd WILLIE CHESTER MD 10/14/19 1531: CONSULT Assessment/Plan Assessment/Plan Pt seen and examined. Agree with Ms. Andrews's note Pt reports pain LLQ abd soft, min TTP CT pending Thanks for consult! LILOSTANDEBBIE Kaba APRN Oct 14, 2019 14:10 WILLIE CHESTER MD Oct 14, 2019 15:31
--- NOTE | 2019-10-14 14:56 | NUR ---
SS following up with discharge planning. Pt requesting Healthcare DPOA paperwork. SS met with pt and mother in room and completed DPOA paperwork. SS will continue to follow for discharge planning.
--- NOTE | 2019-10-14 16:47 | RAD ---
Examination: CT ABD PELV W/ IV CONTRST ONLY History: Right lower quadrant pain Comparison/Correlation: 07/24/2019 CT abdomen and pelvis without contrast, 12/08/2016 CT abdomen and pelvis with contrast Findings: Axial images of the abdomen and pelvis are obtained following IV and oral contrast. Sagittal and coronal reformatted images were provided. Minimal right posterior basilar atelectasis is present. Minimal right pleural effusion is present. Right posterior basilar calcified granulomas present. Large left posterior basilar calcified granuloma is present. Calcified subcarinal and hilar lymph nodes are present. Fatty infiltration of the liver is present. Cholecystectomy noted. Calcified granulomas are present throughout the spleen. Adrenal glands and kidneys are unremarkable. Renal lesions are too small to characterize. On the right, this lesion is stable representing a cyst. The left lower pole lesion is not seen on previous CT exams. Along the posterior aspect of the pancreatic uncinate, there is a 1.3 cm diameter fluid attenuation structure which is seen on 07/24/2019 noncontrast exam with no enhancement evident. This appears larger as compared to 12/08/2016 CT abdomen and pelvis with contrast which is retrospectively seen and have a measurement of approximately 0.8 cm. Appendix is normal. No bowel obstruction. No extraluminal gas. Diverticulosis is unremarkable. Urinary bladder is unremarkable. No enlarged abdominal or pelvic lymph nodes. Ossification of the anterior margins of the vertebral bodies is noted at multiple levels of the lower thoracic and upper lumbar spine probably representing diffuse idiopathic skeletal hyperostosis. Impression: Appendix is normal with no findings of acute inflammation. No other inflammatory findings are evident involving the right lower quadrant. No collecting system obstruction. Minimal right posterior basilar pleural thickening or atelectasis is unchanged. Very minimal right pleural effusion is suspected in the interval. Pancreatic low-attenuation lesion which probably represents an intraductal papillary mucinous neoplasm. Interval follow-up in 9 months to assess stability by MRI without and with contrast according to MRCP protocol is recommended. Indeterminate left renal lower pole lesion which may represent a cyst may also be assessed at this time. Diverticulosis. PQRS Compliance Statement: One or more of the following individualized dose reduction techniques were utilized for this examination: 1. Automated exposure control 2. Adjustment of the mA and/or kV according to patient size 3. Use of iterative reconstruction technique Electronically signed by: Aaron Shah MD (10/14/2019 4:44 PM) [place] [id number]
[2019-10-14] MEDS: glipiZIDE 5 MG TABLET PO SCH (16:53)
[2019-10-14] MEDS ORDERED: ATORVASTATIN CALCIUM 10 MG TABLET. PO SCH (21:00)
[2019-10-15 03:00] VITALS: BP 90/56
[2019-10-15 07:00] VITALS: BP 118/75
[2019-10-15] MEDS: FENOFIBRATE,MICRONIZED 134 MG CAPSULE PO SCH (08:23)
[2019-10-15] MEDS: DICLOFENAC SODIUM 25 MG TABLET.DR PO SCH (08:23)
[2019-10-15] MEDS: ASPIRIN ENTERIC COATED 81 MG TABLET.DR. PO SCH (08:23)
[2019-10-15 08:24] VITALS: BP 118/75
[2019-10-15] MEDS: PANTOPRAZOLE 40 MG TABLET.DR. PO SCH (08:24)
[2019-10-15] MEDS: amLODIPine BESYLATE 10 MG TABLET PO SCH (08:24)
[2019-10-15] MEDS: MECLIZINE HCL 12.5 MG TABLET. PO SCH (08:24)
[2019-10-15] MEDS: LISINOPRIL 20 MG TABLET PO SCH (08:24)
[2019-10-15] MEDS: glipiZIDE 5 MG TABLET PO SCH (08:25)
[2019-10-15] MEDS: hydroCHLOROthiazide 25 MG TABLET PO SCH (08:25)
[2019-10-15] MEDS ORDERED: MECL-75 PO (09:23)
[2019-10-15] MEDS ORDERED: LIDO700A21 TP (09:24)
--- NOTE | 2019-10-15 09:32 | PDOC3 ---
Discharge Summary Visit Information Date of Admission: Oct 14, 2019 Date of Discharge: Oct 15, 2019 Final Diagnosis acute abdominal pain viral enteritis causing sepsis subclinincal diveriticulitis, deaf vertigo neck pain, muscular Problems Medical Problems: (1) Dizziness Status: Acute (2) Hypomagnesemia Status: Acute (3) Impaired hearing Status: Acute (4) Uncontrolled diabetes mellitus Status: Acute Brief Hospital Course Allergies Allergies Coded Allergies Type Severity Reaction Last Updated Verified hydrocodone Adverse Reaction Intermediate confusion 12/10/16 Yes Vital Signs Vital Signs Date Time Temp Pulse Resp B/P (MAP) Pulse Ox O2 Delivery O2 Flow Rate FiO2 10/15/19 08:24 70 118/75 10/15/19 07:00 97.9 16 98 Room Air 97.9 Lab Results Laboratory Tests Test 10/13/19 22:51 10/13/19 22:52 10/13/19 23:43 10/13/19 23:56 Glucose (Fingerstick) 61 mg/dL (70-99) 250 mg/dL (70-99) White Blood Count 11.2 x10^3/uL (4.0-11.0) Red Blood Count 5.08 x10^6/uL (4.30-5.70) Hemoglobin 14.2 g/dL (13.0-17.5) Hematocrit 41.8 % (39.0-53.0) Mean Corpuscular Volume 82 fL (79-100) Mean Corpuscular Hemoglobin 28 pg (25-35) Mean Corpuscular Hemoglobin Concent 34 g/dL (31-37) Red Cell Distribution Width 13.3 % (11.5-14.5) Platelet Count 244 x10^3/uL (140-400) Neutrophils (%) (Auto) 84 % (31-73) Lymphocytes (%) (Auto) 10 % (24-48) Monocytes (%) (Auto) 4 % (0-9) Eosinophils (%) (Auto) 1 % (0-3) Basophils (%) (Auto) 0 % (0-3) Neutrophils # (Auto) 9.4 x10^3/uL (1.8-7.7) Lymphocytes # (Auto) 1.1 x10^3/uL (1.0-4.8) Monocytes # (Auto) 0.5 x10^3/uL (0.0-1.1) Eosinophils # (Auto) 0.2 x10^3/uL (0.0-0.7) Basophils # (Auto) 0.0 x10^3/uL (0.0-0.2) Prothrombin Time 12.3 SEC (11.7-14.0) Prothromb Time International Ratio 1.0 (0.8-1.1) Sodium Level 137 mmol/L (136-145) Potassium Level 3.5 mmol/L (3.5-5.1) Chloride Level 98 mmol/L (98-107) Carbon Dioxide Level 30 mmol/L (21-32) Anion Gap 9 (6-14) Blood Urea Nitrogen 16 mg/dL (8-26) Creatinine 0.7 mg/dL (0.7-1.3) Estimated GFR (Cockcroft-Gault) 117.1 BUN/Creatinine Ratio 23 (6-20) Glucose Level 235 mg/dL (70-99) Calcium Level 9.2 mg/dL (8.5-10.1) Magnesium Level 1.4 mg/dL (1.8-2.4) Total Bilirubin 0.5 mg/dL (0.2-1.0) Aspartate Amino Transf (AST/SGOT) 19 U/L (15-37) Alanine Aminotransferase (ALT/SGPT) 40 U/L (16-63) Alkaline Phosphatase 107 U/L (46-116) Creatine Kinase 92 U/L (39-308) Troponin I Quantitative < 0.017 ng/mL (0.000-0.055) ZD-Quo-Z-Type Natriuretic Peptide 43 pg/mL (0-124) Total Protein 7.7 g/dL (6.4-8.2) Albumin 3.8 g/dL (3.4-5.0) Albumin/Globulin Ratio 1.0 (1.0-1.7) Urine Collection Type Unknown Urine Color Yellow Urine Clarity Clear Urine pH 7.0 (<5.0-8.0) Urine Specific [place] 1.015 (1.000-1.030) Urine Protein 30 mg/dL (NEG-TRACE) Urine Glucose (UA) 250 mg/dL (NEG) Urine Ketones (Stick) Negative mg/dL (NEG) Urine Blood Negative (NEG) Urine Nitrite Negative (NEG) Urine Bilirubin Negative (NEG) Urine Urobilinogen Dipstick 0.2 mg/dL (0.2 mg/dL) Urine Leukocyte Esterase Negative (NEG) Urine RBC 0 /HPF (0-2) Urine WBC Occ /HPF (0-4) Urine Squamous Epithelial Cells Occ /LPF Urine Bacteria 0 /HPF (0-FEW) Urine Mucus Slight /LPF Test 10/14/19 00:09 10/14/19 07:40 10/14/19 08:33 10/14/19 12:15 Glucose (Fingerstick) 252 mg/dL (70-99) 133 mg/dL (70-99) 146 mg/dL (70-99) White Blood Count 10.4 x10^3/uL (4.0-11.0) Red Blood Count 5.02 x10^6/uL (4.30-5.70) Hemoglobin 14.2 g/dL (13.0-17.5) Hematocrit 41.4 % (39.0-53.0) Mean Corpuscular Volume 83 fL (79-100) Mean Corpuscular Hemoglobin 28 pg (25-35) Mean Corpuscular Hemoglobin Concent 34 g/dL (31-37) Red Cell Distribution Width 13.4 % (11.5-14.5) Platelet Count 254 x10^3/uL (140-400) Neutrophils (%) (Auto) 68 % (31-73) Lymphocytes (%) (Auto) 23 % (24-48) Monocytes (%) (Auto) 6 % (0-9) Eosinophils (%) (Auto) 2 % (0-3) Basophils (%) (Auto) 1 % (0-3) Neutrophils # (Auto) 7.1 x10^3/uL (1.8-7.7) Lymphocytes # (Auto) 2.4 x10^3/uL (1.0-4.8) Monocytes # (Auto) 0.7 x10^3/uL (0.0-1.1) Eosinophils # (Auto) 0.2 x10^3/uL (0.0-0.7) Basophils # (Auto) 0.1 x10^3/uL (0.0-0.2) Sodium Level 140 mmol/L (136-145) Potassium Level 3.5 mmol/L (3.5-5.1) Chloride Level 101 mmol/L (98-107) Carbon Dioxide Level 31 mmol/L (21-32) Anion Gap 8 (6-14) Blood Urea Nitrogen 11 mg/dL (8-26) Creatinine 0.6 mg/dL (0.7-1.3) Estimated GFR (Cockcroft-Gault) 139.9 Glucose Level 147 mg/dL (70-99) Calcium Level 9.0 mg/dL (8.5-10.1) Magnesium Level 2.1 mg/dL (1.8-2.4) Test 10/14/19 16:37 10/14/19 20:32 10/15/19 07:31 Glucose (Fingerstick) 237 mg/dL (70-99) 195 mg/dL (70-99) 141 mg/dL (70-99) Laboratory Tests Test 10/14/19 12:15 10/14/19 16:37 10/14/19 20:32 10/15/19 07:31 Glucose (Fingerstick) 146 mg/dL (70-99) 237 mg/dL (70-99) 195 mg/dL (70-99) 141 mg/dL (70-99) Brief Hospital Course Mr. Velazquez is a 54 old male, admit with abd pain, GI and surg consult, CT scan was benign, some diverticulosis , no abx given and white count and pain and vitals improved, sepsis resolved without abx, DC home, Discharge Information Condition at Discharge: Improved Follow Up: Weeks Disposition/Orders: D/C to Home Scheduled Amlodipine Besylate (Amlodipine Besylate) 10 Mg Tablet, 10 MG PO DAILY, (Reported) Entered as Reported by: ELOY JOSUE on 05/28/151703 Last Action: Continued on 10/14/19858 by PRINCESS ARIAS Aspirin (Aspir 81) 81 Mg Tablet., 1 TAB PO DAILY, #30 Ref 5 (Reported) Entered as Reported by: ELOY JOSUE on 05/28/151701 Last Action: Continued on 10/14/19858 by PRINCESS ARIAS Atorvastatin Calcium (Atorvastatin Calcium) 10 Mg Tablet, 1 TAB PO HS, #30 Ref 5 (Reported) Entered as Reported by: ELOY JOSUE on 05/28/151703 Last Action: Continued on 10/14/19858 by PRINCESS ARIAS Diclofenac Potassium (Diclofenac Potassium) 50 Mg Tablet, 1 TAB PO BID, #20 Ref 0 Prescribed by: Merced Hirsch APRN on 09/05/18 1552 Last Action: Converted on 10/14/19858 by PRINCESS ARIAS Fenofibrate,Micronized (Fenofibrate) 200 Mg Capsule, 1 CAP PO DAILY, #30 Ref 5 (Reported) Entered as Reported by: ELOY JOSUE on 05/28/15 170 Last Action: Converted on 10/14/19858 by PRINCESS ARIAS Glipizide (Glipizide) 10 Mg Tablet, 1 TAB PO BID, #60 Ref 5 (Reported) Entered as Reported by: WILLIE MAIN on 12/09/161712 Last Action: Converted on 10/14/19858 by PRINCESS ARIAS Lisinopril/Hydrochlorothiazide (Lisinopril-Hctz 20-12.5 Mg Tab) 1 Each Tablet, 2 TAB PO DAILY, #90 Ref 3 (Reported) Entered as Reported by: DANAE GAYTAN on 05/28/15 173 Last Action: Converted on 10/14/19858 by PRINCESS ARIAS Metformin Hcl (Metformin Hcl Er) 1,000 Mg Tab.er.24, 1,000 MG PO DAILYWBKFT for ANTI-DIABETIC, Ref 0 (Reported) Entered as Reported by: WILLIE MAIN on 12/09/161711 Last Action: HELD on 10/14/19858 by PRINCESS ARIAS Ondansetron Hcl (Zofran) 4 Mg Tablet, 1 TAB PO PRN Q6-8HRS for nausea, #12 Prescribed by: FLORENCIO CENTENO MD on 07/24/19 1212 Last Action: Converted on 10/14/19858 by PRINCESS ARIAS Pantoprazole Sodium (Pantoprazole Sodium ) 40 Mg Tablet.dr, 1 TAB PO DAILY, #30 Ref 3 (Reported) Entered as Reported by: ELOY JOSUE on 05/28/15 170 Last Action: Continued on 10/14/19858 by PRINCESS ARIAS Scheduled PRN Lidocaine (Lidocaine PATCH ) 1 Each Adh..patch, 1 EACH TP DAILY PRN for PAIN, #5 REMOVE AFTER 12 HOURS Prescribed by: PRINCESS ARIAS on 10/15/19 0924 Meclizine Hcl (Meclizine Hcl) 25 Mg Tablet, 25 MG PO BID PRN for dizzyness, #30 Prescribed by: PRINCESS ARIAS on 10/15/19 09 Tramadol Hcl (Ultram) 50 Mg Tablet, 1 TAB PO Q6HRS PRN for PAIN, #20 Prescribed by: ROSA ISELA MCDONALD D.O. on 08/14/162204 Last Action: Continued on 10/14/19 0859 by PRINCESS ARIAS Patient Instructions Patient Instructions > 30 MIN FACE TO FACE discsused at length with family PRINCESS ARIAS MD Oct 15, 2019 09:32
[2019-10-15] MEDS ORDERED: LIDOCAINE (700MG/PATCH) PATCH. TD SCH (10:00)
--- NOTE | 2019-10-15 10:42 | NUR ---
Discharge Note: PT DISCHARGED HOME WITH SELF CARE. PT LEFT FACILITY VIA PRIVATE VEHICLE WITH MOTHER AT 1030. PT STABLE AND ALERT UPON DISCHARGE. PT PIV REMOVED FROM L AC WITHOUT COMPLICATIONS, BANDAGE APPLIED. PT EDUCATED ABOUT DISCHARGE INSTRUCTIONS, DISCHARGE MEDICATIONS, AND FOLLOW-UP CARE. PT EDUCATED ABOUT FOLLOW-UP APPOINTMENTS WITH ENT AND DR. SCHULTZ FOR FOLLOW-UP SCANS. NO CONCERNS VOICED AT THIS TIME. PT LEFT WITH ALL PERSONAL BELONGINGS. JULIÁN HEATON Discharge instructions and discharge home medications reviewed with Patient and a copy given. All questions have been answered and understanding verbalized.
--- NOTE | 2019-10-15 10:50 | PDOC ---
Subjective: Subjective: Per mother - tolerating PO, no abd pain, wants to go home. Wants to know if they'll shave his neck before putting the pain patch on. Objective: Objective: D/w Dr. Gillis. Vital Signs: Vital Signs Date Time Temp Pulse Resp B/P (MAP) Pulse Ox O2 Delivery O2 Flow Rate FiO2 10/15/19 08:24 70 118/75 10/15/19 08:00 Room Air 10/15/19 07:00 97.9 16 98 97.9 Labs: Laboratory Tests Test 10/14/19 12:15 10/14/19 16:37 10/14/19 20:32 10/15/19 07:31 Glucose (Fingerstick) 146 mg/dL 237 mg/dL 195 mg/dL 141 mg/dL Imaging: CT A/P 10/14/19 Impression: Appendix is normal with no findings of acute inflammation. No other inflammatory findings are evident involving the right lower quadrant. No collecting system obstruction. Minimal right posterior basilar pleural thickening or atelectasis is unchanged. Very minimal right pleural effusion is suspected in the interval. Pancreatic low-attenuation lesion which probably represents an intraductal pap illary mucinous neoplasm. Interval follow-up in 9 months to assess stability by MRI without and with contrast according to MRCP protocol is recommended. Indeterminate left renal lower pole lesion which may represent a cyst may also be assessed at this time. Diverticulosis. PE: GEN: NAD, dressed to leave LUNGS: CTAB HEART: RRR ABD: S/ND/NT NEURO/PSYCH: A & O 3 - mother signs for him A/P: Vertigo, left ear pain Vomiting, abd pain - resolved Abnormal CT - possible IPMN -- DC per primary. Discussed CT findings w/ mother and pt. Our office will contact to schedule follow-up imaging as recommended. Consider GES if symptoms recur as outpt. Hemodynamically unstable?: No Is patient in severe pain?: No Is NPO status required?: No ETHEL SCHMIDT Oct 15, 2019 10:50
[2019-10-15] MEDS ORDERED: PATCH REMOVAL. MC SCH (21:00)
== END 2019-10-15 10:30 | disposition home or self-care (01) | DRG 872 ==
LOC: ER 21:45 → 2 SOUTH 23:28 → OBSVTOIN 23:29 → 5 SOUTH 10-14 15:27
PROVIDERS: ADMIT Internal Medicine; ATTEND Internal Medicine
DX: A41.9 Sepsis, unspecified organism (principal); K57.90 Diverticulosis of intestine, part unspecified, without perforation or abscess without bleeding; E78.00 Pure hypercholesterolemia, unspecified; E78.5 Hyperlipidemia, unspecified; I10 Essential (primary) hypertension; E83.42 Hypomagnesemia; K64.9 Unspecified hemorrhoids; A08.4 Viral intestinal infection, unspecified; E11.9 Type 2 diabetes mellitus without complications; K76.0 Fatty (change of) liver, not elsewhere classified; Z90.49 Acquired absence of other specified parts of digestive tract; Z88.8 Allergy status to other drugs, medicaments and biological substances
CPT/HCPCS: 36415; 70450; 71045; 74177; 80048; 80053; 81001; 82550; 82962; 83735; 83880; 84484; 85025; 85610; 93005; G0379; J2405; J3475; Q9966; Q9967; 99285-25; G0378; J8597

== ENCOUNTER 2019-10-28 16:55 | Emergency (ER) | payer BC ==
[~2019-10-28] VITALS: Ht 172.7 cm; Wt 72.0 kg
[~2019-10-28 16:55] MED LIST changes: +LIDO700A21 TP; +MECL-75 PO
[2019-10-28 17:10] VITALS: BP 120/73
[2019-10-28] MEDS ORDERED: fentaNYL PF VIAL 100 MCG/2 ML VIAL IV ONE (17:45)
[2019-10-28] MEDS ORDERED: IV NORMAL SALINE 1000ML BAG 1,000 ML IV ONE (17:45)
[2019-10-28] MEDS ORDERED: ONDANSETRON PF 4 MG/2 ML VIAL. IV ONE (17:45)
[2019-10-28 17:53] LABS: BASO # 0.1 x10^3/uL (0.0-0.2); BASO % 1 % (0-3); EOS # 0.2 x10^3/uL (0.0-0.7); EOS % 2 % (0-3); HEMATOCRIT 38.5 % (39.0-53.0); HEMOGLOBIN 13.4 g/dL (13.0-17.5); LYMPH # 1.9 x10^3/uL (1.0-4.8); LYMPH % 21 % (24-48); MEAN CORPUSCULAR HEMOGLOBIN 29 pg (25-35); MEAN CORPUSCULAR HGB CONC 35 g/dL (31-37); MEAN CORPUSCULAR VOLUME 82 fL (79-100); MONO # 0.5 x10^3/uL (0.0-1.1); MONO % 5 % (0-9); NEUT # 6.5 x10^3/uL (1.8-7.7); NEUT % 71 % (31-73); PLATELET COUNT 292 x10^3/uL (140-400); RED BLOOD COUNT 4.69 x10^6/uL (4.30-5.70); RED CELL DISTRIBUTION WIDTH 13.4 % (11.5-14.5); WHITE BLOOD COUNT 9.2 x10^3/uL (4.0-11.0)
[2019-10-28 18:07] LABS: CALCIUM 9.8 mg/dL (8.5-10.1); CREATININE 0.9 mg/dL (0.7-1.3); GFR 87.6; POTASSIUM 3.2 mmol/L (3.5-5.1)
[2019-10-28 18:18] LABS: ALBUMIN 3.5 g/dL (3.4-5.0); ALBUMIN/GLOBULIN RATIO 0.9 (1.0-1.7); MAGNESIUM 1.4 mg/dL (1.8-2.4); TOTAL BILIRUBIN 0.4 mg/dL (0.2-1.0); TOTAL PROTEIN 7.5 g/dL (6.4-8.2)
[2019-10-28 18:24] LABS: BILIRUBIN,URINE NEGATIVE (NEG); CLARITY,URINE CLEAR; COLOR,URINE YELLOW; NITRITE,URINE NEGATIVE (NEG); PH,URINE 5.5 (<5.0-8.0); PROTEIN,URINE NEGATIVE (NEG-TRACE); UROBILINOGEN,URINE 0.2 mg/dL (0.2 mg/dL)
[2019-10-28 18:30] LABS: BACTERIA,URINE 0 /HPF (0-FEW); RBC,URINE 0 /HPF (0-2); WBC,URINE 0 /HPF (0-4)
[2019-10-28] MEDS ORDERED: CONTRAST GIVEN. MC PRN (18:30)
[2019-10-28] MEDS ORDERED: IOHEXOL 300 MG/ML 100ML VIAL. IV ONE (18:30)
--- NOTE | 2019-10-28 18:57 | RAD ---
Exam: CT abdomen and pelvis with contrast INDICATION: Right lower quadrant abdominal pain TECHNIQUE: Sequential axial images through the abdomen and pelvis obtained following the administration of 75 mL of Omni 300 IV contrast. Sagittal and coronal reformatted images were reconstructed from the axial data and reviewed. Comparisons: 10/14/2019 FINDINGS: Heart size is normal. No pericardial effusion. Strandy opacities at dependent portion the lungs likely representing atelectasis.. Liver, spleen, and adrenals are unremarkable. Gallbladder surgically absent. There is a 1.8 cm cystic lesion at the pancreatic head. Kidneys demonstrate symmetric enhancement. No perinephric inflammation or hydronephrosis. No renal or ureteral calculi are identified. Bladder is distended and appears thin-walled. Prostate is not enlarged. Few scattered diverticula are noted at the sigmoid colon. Remainder of the large and small bowel are unremarkable. Appendix is normal. No free intra-abdominal air or fluid. No obstruction. Abdominal aorta has a normal course and caliber. No enlarged abdominal lymph nodes are identified. No suspicious osseous lesions or acute fractures. IMPRESSION: 1. No acute process identified within the abdomen or pelvis. 2. Stable chronic findings as described above. Exposure: One or more of the following in the visualized dose reduction techniques were utilized for this examination: 1. Automated exposure control 2. Adjustment of the MA and/or KV according to patient size 3. Use of iterative of reconstructive technique Electronically signed by: Danis Yanez MD (10/28/2019 6:54 PM) [id number]
--- NOTE | 2019-10-28 19:14 | PHYS DOC ---
Past Medical History Past Medical History: Diabetes-Type II, High Cholesterol, Hypertension, Other Additional Past Medical Histor: HEARING IMPAIRED, VERTIGO (VIRIDIANA RICHMOND APRN) Past Surgical History: Appendectomy, Cholecystectomy, Tonsillectomy, Other Additional Past Surgical Histo: cochlear implant L ear (VIRIDIANA RICHMOND APRN) Smoking Status: Never Smoker Alcohol Use: None Drug Use: None (VIRIDIANA RICHMOND APRN) Attending Signature I have participated in the care of this patient and I have reviewed and agree with all pertinent clinical information above including history, exam, and recommendations. (CLARK RASHEED MD) Adult General Chief Complaint Chief Complaint: ABDOMINAL PAIN HPI HPI Patient is a 54 year old deaf male, accompanied by his mother with complaints of nausea, vomiting, diarrhea, and right lower quadrant abdominal pain that is come and gone for the last week. Patient's mother interpreted for the patient since he is deaf. Patient denies any fever, cough, shortness of breath, chest pain, palpitations, blood in his stool, dizziness, headache, vision changes, ear pain, or sore throat at this time. Patient denies any dysuria, hematuria, back pain, flank pain, or recent constipation. He currently rates his pain 8 out of 10 on the pain scale. He denies any alleviating factors, the pain in his abdomen increases when pressure is applied to the right lower quadrant or when he moves his right leg. (VIRIDIANA RICHMOND APRN) Review of Systems Review of Systems Complete ROS is negative unless otherwise noted in HPI. (VIRIDIANA RICHMOND APRN) Current Medications Current Medications Current Medications Medications (Trade) Dose Ordered Sig/Sharyn Start Time Stop Time Status Last Admin Dose Admin Fentanyl Citrate (Fentanyl 2ml Vial) 50 mcg 1X ONCE 10/28/19 17:45 10/28/19 17:46 DC 10/28/19 17:53 50 MCG Info (CONTRAST GIVEN -- Rx MONITORING) 1 each PRN DAILY PRN 10/28/19 18:30 10/28/19 20:19 DC Iohexol (Omnipaque 300 Mg/ml) 75 ml 1X ONCE 10/28/19 18:30 10/28/19 18:31 DC 10/28/19 18:25 75 ML Magnesium Oxide (Magnesium Oxide) 400 mg 1X 10/28/19 19:15 10/28/19 20:19 DC 10/28/19 19:44 400 MG Ondansetron HCl (Zofran) 4 mg 1X ONCE 10/28/19 17:45 10/28/19 17:46 DC 10/28/19 17:52 4 MG Potassium Chloride (Klor-Con) 40 meq 1X ONCE 10/28/19 19:15 10/28/19 19:16 DC 10/28/19 19:39 40 MEQ Sodium Chloride 1,000 ml @ 1,000 mls/hr 1X ONCE 10/28/19 17:45 10/28/19 18:44 DC 10/28/19 17:52 1,000 MLS/HR (CLARK RASHEED MD) Allergies Allergies Allergies Coded Allergies Type Severity Reaction Last Updated Verified hydrocodone Adverse Reaction Intermediate confusion 12/10/16 Yes (CLARK RASHEED MD) Physical Exam Physical Exam See Above Constitutional: Well developed, well nourished, no acute distress, non-toxic appearance. [] HENT: Normocephalic, atraumatic, bilateral external ears normal, oropharynx m oist, no oral exudates, nose normal. [] Eyes: PERRLA, EOMI, conjunctiva normal, no discharge. [] Neck: Normal range of motion, no stridor. [] Cardiovascular:Heart rate regular rhythm, no murmur [] Lungs & Thorax: Bilateral breath sounds clear to auscultation, Respirations even and unlabored, no retractions, no respiratory distress [] Abdomen: Bowel sounds normal, soft, RLQ TTP, no rebound tenderness, guarding present in the right lower quadrant, pain with palpation of McBurney's point, p ositive obturator and psoas signs, no masses, no pulsatile masses. [] Skin: Warm, dry, no erythema, no rash. [] Back: No CVA tenderness. [] Extremities: No cyanosis, ROM intact, no edema. [] Neurologic: Alert and oriented X 3, no focal deficits noted. [] Psychologic: Affect normal, judgement normal, mood normal. [] (VIRIDIANA RICHMOND APRN) Current Patient Data Vital Signs Vital Signs Date Time Temp Pulse Resp B/P (MAP) Pulse Ox O2 Delivery O2 Flow Rate FiO2 10/28/19 17:10 98.9 94 18 120/73 (89) 99 Room Air 98.9 (CLARK RASHEED MD) Lab Values Laboratory Tests Test 10/28/19 17:40 10/28/19 18:15 White Blood Count 9.2 x10^3/uL (4.0-11.0) Red Blood Count 4.69 x10^6/uL (4.30-5.70) Hemoglobin 13.4 g/dL (13.0-17.5) Hematocrit 38.5 % (39.0-53.0) L Mean Corpuscular Volume 82 fL (79-100) Mean Corpuscular Hemoglobin 29 pg (25-35) Mean Corpuscular Hemoglobin Concent 35 g/dL (31-37) Red Cell Distribution Width 13.4 % (11.5-14.5) Platelet Count 292 x10^3/uL (140-400) Neutrophils (%) (Auto) 71 % (31-73) Lymphocytes (%) (Auto) 21 % (24-48) L Monocytes (%) (Auto) 5 % (0-9) Eosinophils (%) (Auto) 2 % (0-3) Basophils (%) (Auto) 1 % (0-3) Neutrophils # (Auto) 6.5 x10^3/uL (1.8-7.7) Lymphocytes # (Auto) 1.9 x10^3/uL (1.0-4.8) Monocytes # (Auto) 0.5 x10^3/uL (0.0-1.1) Eosinophils # (Auto) 0.2 x10^3/uL (0.0-0.7) Basophils # (Auto) 0.1 x10^3/uL (0.0-0.2) Sodium Level 138 mmol/L (136-145) Potassium Level 3.2 mmol/L (3.5-5.1) L Chloride Level 98 mmol/L (98-107) Carbon Dioxide Level 30 mmol/L (21-32) Anion Gap 10 (6-14) Blood Urea Nitrogen 12 mg/dL (8-26) Creatinine 0.9 mg/dL (0.7-1.3) Estimated GFR (Cockcroft-Gault) 87.6 BUN/Creatinine Ratio 13 (6-20) Glucose Level 222 mg/dL (70-99) H Lactic Acid Level 1.8 mmol/L (0.4-2.0) Calcium Level 9.8 mg/dL (8.5-10.1) Magnesium Level 1.4 mg/dL (1.8-2.4) L Total Bilirubin 0.4 mg/dL (0.2-1.0) Aspartate Amino Transferase (AST) 21 U/L (15-37) Alanine Aminotransferase (ALT) 33 U/L (16-63) Alkaline Phosphatase 86 U/L (46-116) Total Protein 7.5 g/dL (6.4-8.2) Albumin 3.5 g/dL (3.4-5.0) Albumin/Globulin Ratio 0.9 (1.0-1.7) L Urine Collection Type Void Urine Color Yellow Urine Clarity Clear Urine pH 5.5 (<5.0-8.0) Urine Specific [place] 1.020 (1.000-1.030) Urine Protein Negative mg/dL (NEG-TRACE) Urine Glucose (UA) 250 mg/dL (NEG) Urine Ketones (Stick) Negative mg/dL (NEG) Urine Blood Negative (NEG) Urine Nitrite Negative (NEG) Urine Bilirubin Negative (NEG) Urine Urobilinogen Dipstick 0.2 mg/dL (0.2 mg/dL) Urine Leukocyte Esterase Negative (NEG) Urine RBC 0 /HPF (0-2) Urine WBC 0 /HPF (0-4) Urine Squamous Epithelial Cells None /LPF Urine Bacteria 0 /HPF (0-FEW) Urine Mucus Mod /LPF Laboratory Tests 10/28/19 17:40 Laboratory Tests 10/28/19 17:40 (CLARK RASHEED MD) EKG EKG [] (VIRIDIANA RICHMOND APRN) Radiology/Procedures Radiology/Procedures PROCEDURE: CT ABD PELV W/ IV CONTRST ONLY Exam: CT abdomen and pelvis with contrast INDICATION: Right lower quadrant abdominal pain TECHNIQUE: Sequential axial images through the abdomen and pelvis obtained following the administration of 75 mL of Omni 300 IV contrast. Sagittal and coronal reformatted images were reconstructed from the axial data and reviewed. Comparisons: 10/14/2019 FINDINGS: Heart size is normal. No pericardial effusion. Strandy opacities at dependent portion the lungs likely representing atelectasis.. Liver, spleen, and adrenals are unremarkable. Gallbladder surgically absent. There is a 1.8 cm cystic lesion at the pancreatic head. Kidneys demonstrate symmetric enhancement. No perinephric inflammation or hydronephrosis. No renal or ureteral calculi are identified. Bladder is distended and appears thin-walled. Prostate is not enlarged. Few scattered diverticula are noted at the sigmoid colon. Remainder of the large and small bowel are unremarkable. Appendix is normal. No free intra-abdominal air or fluid. No obstruction. Abdominal aorta has a normal course and caliber. No enlarged abdominal lymph nodes are identified. No suspicious osseous lesions or acute fractures. IMPRESSION: 1. No acute process identified within the abdomen or pelvis. 2. Stable chronic findings as described above. [] (VIRIDIANA RICHMOND APRN) Course & Med Decision Making Course & Med Decision Making Pertinent Labs and Imaging studies reviewed. (See chart for details) 54-year-old male who presented to the emergency department with complaints of right lower quadrant abdominal pain and one episode of green diarrhea in the last 24 hours. Mother reported that the pain has been intermittent for the last week. He denied any fever, cough, sore throat, body aches, or urinary symptoms. His CBC was unremarkable, CMP revealed a blood glucose of 222; potassium of 3.2, magnesium of 1.4, was otherwise unremarkable; lactic acid was 1.8; UA was unremarkable. Patient was given a liter of normal saline, 4 mg of Zofran, and 50 mg of fentanyl in the emergency department he reported feeling better after these medications. He was also given 40 mEq of potassium chloride and 400 mg of magnesium oxide after reviewing laboratory results. Patient was strongly encouraged to follow-up with Dr. Starkey or his primary care doctor for further evaluation of his reoccurring abdominal pain. He was advised to return to the emergency department if his symptoms worsened or he developed a fever. Patient and his mother verbalized an understanding of home care, medications, follow-up, and return to ED instructions and were in agreement with the plan of care. [] (VIRIDIANA RICHMOND [employer]) Dragon Disclaimer Dragon Disclaimer This electronic medical record was generated, in whole or in part, using a voice recognition dictation system. (VIRIDIANA RICHMOND APRN) Departure Departure Impression: Primary Impression: Abdominal pain Additional Impressions: Hypokalemia Hypomagnesemia Diarrhea Disposition: HOME, SELF-CARE Condition: STABLE Referrals: GARTH RIZVI MD (PCP) TIESHA PITT MD Patient Instructions: Abdominal Pain (Nonspecific), Diet for Diarrhea, Adult, Hypokalemia-Brief Additional Instructions: Fill prescriptions and use them as directed. Recommend clear fluids for the next 24 hours. Then you may advance to bland foods such as bananas, rice, applesauce, and dry toast. Follow-up with Dr. Pitt or your primary care doctor for further evaluation of your frequent abdominal pain, vomiting, and diarrhea. Return to the emergency room if your symptoms worsen. Problem Qualifiers Primary Impression: Abdominal pain Abdominal location: right lower quadrant Qualified Codes: R10.31 - Right lower quadrant pain Additional Impressions: Diarrhea Diarrhea type: unspecified type Qualified Codes: R19.7 - Diarrhea, unspecified VIRIDIANA RICHMOND APRN Oct 28, 2019 19:14 CLARK RASHEED MD Oct 28, 2019 22:51
[2019-10-28] MEDS ORDERED: POTASSIUM CHLORIDE 20 MEQ TABLET.ER. PO ONE (19:15)
[2019-10-28] MEDS ORDERED: MAGNESIUM OXIDE 400 MG TABLET PO SCH (19:15)
== END 2019-10-28 20:19 | disposition home or self-care (01) ==
LOC: ER 16:55
DX: R10.31 Right lower quadrant pain (principal); R11.2 Nausea with vomiting, unspecified; R19.7 Diarrhea, unspecified; E87.6 Hypokalemia; E83.42 Hypomagnesemia; E11.9 Type 2 diabetes mellitus without complications; E78.00 Pure hypercholesterolemia, unspecified; Z90.89 Acquired absence of other organs; Z90.49 Acquired absence of other specified parts of digestive tract; Z88.5 Allergy status to narcotic agent
CPT/HCPCS: 36415; 74177; 80053; 81001; 83605; 83735; 85025; 87040; 96361; 96374; 96375; 99285; J2405; J3010; J7030; Q9967

== ENCOUNTER → 2020-12-14 | Outpatient (CLI) | payer BC ==
[~2020-12-14] MED LIST changes: +AMLO-187 PO; -AMLO10TA8 PO; -LISI1TAB19 PO; +LISI1TAB37 PO
--- NOTE | 2020-12-14 15:32 | KCIC ---
3 view study of the left ankle Clinical indications: Left ankle injury and pain FINDINGS: No acute fracture or dislocation or lytic process is seen. The mortise ankle joint is intac t. Posterior and plantar spurs of the calcaneus are seen. IMPRESSION: No acute abnormality. Electronically signed by: Pasquale John MD (12/14/2020 3:29 PM) [id number]
== END ==
LOC: KCIC 14:47
PROVIDERS: ATTEND Physician Assistant Medical
DX: S99.912A Unspecified injury of left ankle, initial encounter (principal); M77.32 Calcaneal spur, left foot; X58.XXXA Exposure to other specified factors, initial encounter; Y93.89 Activity, other specified; Y92.89 Other specified places as the place of occurrence of the external cause; Y99.8 Other external cause status
CPT/HCPCS: 73610

== ENCOUNTER → 2021-03-28 | Outpatient (CLI) | payer BC ==
--- NOTE | 2021-03-28 11:13 | KCIC ---
EXAM: Chest, 2 views. HISTORY: Pneumonia. COMPARISON: None. FINDINGS: 2 views of the chest are obtained. There is no infiltrate, pleural effusion or pneumothorax . The heart is normal in size. There are calcified granulomas, one of which overlies the left lower l obe. IMPRESSION: No acute pulmonary finding. Electronically signed by: Stephanie Dutton MD (03/28/2021 11:10 AM) [id number]
== END ==
LOC: KCIC 09:57
PROVIDERS: ATTEND Physician Assistant Medical
DX: J18.9 Pneumonia, unspecified organism (principal); J84.10 Pulmonary fibrosis, unspecified
CPT/HCPCS: 71046